=== PATIENT | female | born 1965 | race African-American/Black ===

== ENCOUNTER 2018-06-12 15:49 | Emergency (ER) | payer OTHER, SELFPAY ==
--- NOTE | 2018-06-12 16:28 | EDPHYS ---
Physician Documentation [facility] Name: Isis Ledezma Age: 53 yrs Sex: Female : 1965 Arrival Date: 06/12/2018 Time: 15:53 Bed 20 Private MD: ED Physician Velvet Lundberg HPI: 06/12 16:13 This 53 yrs old Black Female presents to ER via Ambulatory with complaints of L Arm kb Pain. 16:13 The patient or guardian complains of decreased range of motion, pain, that is acute. kb The complaints affect the neck and left arm. Context: resulted from unknown cause. Onset: The symptoms/episode began/occurred 1 week(s) ago. Treatment prior to arrival includes: no previous treatment. Modifying factors: The symptoms are alleviated by nothing. the symptoms are aggravated by movement, bending arm. Associated signs and symptoms: Pertinent positives: decreased range of motion, pain, Pertinent negatives: deformity, erythema, fever, nausea, numbness, swelling, tingling, vomiting, warmth, weakness. Severity of symptoms: At their worst the symptoms were moderate, in the emergency department the symptoms are unchanged. The patient has not experienced similar symptoms in the past. The patient has not recently seen a physician. 16:30 Pt denies injury or trauma. Woke up with the pain last . 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 - Social history:: Smoking status: Patient uses tobacco products, smokes one-half pack cigarettes per day. - Ebola Screening: : Patient denies travel to an Ebola-affected area in the 21 days before illness onset. ROS: 16:25 Constitutional: Negative for fever, chills, and weight loss, Cardiovascular: Negative kb for chest pain, palpitations, and edema, Respiratory: Negative for shortness of breath, cough, wheezing, and pleuritic chest pain, Abdomen/GI: Negative for abdominal pain, nausea, vomiting, diarrhea, and constipation, Back: Negative for injury and pain, Skin: Negative for injury, rash, and discoloration, Neuro: Negative for headache, weakness, numbness, tingling, and seizure. 16:25 MS/extremity: Positive for decreased range of motion, pain, of the left arm. Exam: 16:25 Constitutional: This is a well developed, well nourished patient who is awake, alert, kb and in no acute distress. Head/Face: Normocephalic, atraumatic. Chest/axilla: Normal chest wall appearance and motion. Nontender with no deformity. No lesions are appreciated. Cardiovascular: Regular rate and rhythm with a normal S1 and S2. No gallops, murmurs, or rubs. Normal PMI, no JVD. No pulse deficits. Respiratory: Lungs have equal breath sounds bilaterally, clear to auscultation and percussion. No rales, rhonchi or wheezes noted. No increased work of breathing, no retractions or nasal flaring. Abdomen/GI: Soft, non-tender, with normal bowel sounds. No distension or tympany. No guarding or rebound. No evidence of tenderness throughout. Skin: Warm, dry with normal turgor. Normal color with no rashes, no lesions, and no evidence of cellulitis. Neuro: Awake and alert, GCS 15, oriented to person, place, time, and situation. Cranial nerves II-XII grossly intact. Motor strength 5/5 in all extremities. Sensory grossly intact. Cerebellar exam normal. Normal gait. 16:25 Back: pain, that is moderate, of the left trapezius, ROM is normal, normal spinal alignment noted. 16:25 Musculoskeletal/extremity: Extremities: grossly normal except: noted in the left arm: decreased ROM, pain, ROM: limited active range of motion due to pain, in the left arm, Circulation is intact in all extremities. Sensation intact. Vital Signs: 15:57 BP 149 / 87; Pulse 88; Resp 18; Temp 98.4; Pulse Ox 98% on R/A; Weight 86.18 kg (R); aj1 Height 5 ft. 4 in. (162.56 cm) (R); Pain 10/10; 15:57 Body Mass Index 32.61 (86.18 kg, 162.56 cm) aj1 MDM: 16:06 Patient medically screened. kb 16:26 Data reviewed: vital signs, nurses notes. Data interpreted: Pulse oximetry: on room air kb is 98 %. Interpretation: normal. Counseling: I had a detailed discussion with the patient and/or guardian regarding: the historical points, exam findings, and any diagnostic results supporting the discharge/admit diagnosis, the need for outpatient follow up, a neurologist, a orthopedic surgeon, to return to the emergency department if symptoms worsen or persist or if there are any questions or concerns that arise at home. 06/12 16:27 Order name: Oleg; Complete Time: 16:28 kb Administered Medications: 16:33 Drug: TORadol 60 mg Route: IM; Site: right gluteus; em 16:43 Follow up: Response: No adverse reaction em Disposition: 18:28 Co-signature as Attending Physician, Velvet Lundberg MD. ma2 Disposition: 06/12/18 16:27 Discharged to Home. Impression: Pain in left upper arm, Radiculopathy, cervical region. - Condition is Stable. - Discharge Instructions: Musculoskeletal Pain, Cervical Radiculopathy, [id number]. - Prescriptions for Cyclobenzaprine 10 mg Oral Tablet - take 1 tablet by ORAL route every 8 hours As needed; 21 tablet. Tramadol 50 mg Oral Tablet - take 1 tablet by ORAL route every 8 hours as needed; 12 tablet. - Medication Reconciliation Form, Thank You Letter, Antibiotic Education, Prescription Opioid Use form. - Follow up: Emergency Department; When: As needed; Reason: Worsening of condition. Follow up: Private Physician; When: 2 - 3 days; Reason: Recheck today's complaints, Continuance of care, Re-evaluation by your physician. Signatures: Eva Palomo, ANTHONY BUCHANAN-Isis Butts RN RN aj1 Gustavo Jean, SECRETARY SPECIALIST SECRETARY SPECIALIST em Velvet Lundberg MD MD ma2 Corrections: (The following items were deleted from the chart) 16:26 16:25 Musculoskeletal/extremity: Extremities: grossly normal except: noted in the left kb arm: decreased ROM, pain, ROM: limited active range of motion due to pain, in the left arm, Circulation is intact in all extremities. Sensation intact. Tendon exam: specific tendon testing normal through active and passive range of motion kb 16:43 16:27 06/12/2018 16:27 Discharged to Home. Impression: Pain in left upper arm; em Radiculopathy, cervical region. Condition is Stable. Forms are Medication Reconciliation Form, Thank You Letter, Antibiotic Education, Prescription Opioid Use. Follow up: Emergency Department; When: As needed; Reason: Worsening of condition. Follow up: Private Physician; When: 2 - 3 days; Reason: Recheck today's complaints, Continuance of care, Re-evaluation by your physician. kb
--- NOTE | 2018-06-12 16:28 | ER ---
Nurse's Notes [facility] Name: Isis Ledezma Age: 53 yrs Sex: Female : 1965 Arrival Date: 06/12/2018 Time: 15:53 Bed 20 Private MD: Diagnosis: Pain in left upper arm;Radiculopathy, cervical region Presentation: 06/12 15:56 Presenting complaint: Patient states: Left arm pain for the past week, she has been aj1 unable to lift her arm due to the pain. Now the pain is radiating up to her neck and its starting to give her a headache as well. Denies injury to the left arm. Transition of care: patient was not received from another setting of care. Onset of symptoms was June 12, 2018. Risk Assessment: Do you want to hurt yourself or someone else? Patient reports no desire to harm self or others. Initial Sepsis Screen: Does the patient meet any 2 criteria? No. Patient's initial sepsis screen is negative. Does the patient have a suspected source of infection? No. Patient's initial sepsis screen is negative. Care prior to arrival: None. 15:56 Method Of Arrival: Ambulatory [facility] 15:56 Acuity: TAMICA 4 aj1 Triage Assessment: 15:57 General: Appears in no apparent distress. uncomfortable, Behavior is calm, cooperative, aj1 appropriate for age. Pain: Complains of pain in left arm and neck Pain currently is 10 out of 10 on a pain scale. Neuro: Level of Consciousness is awake, alert, obeys commands. Cardiovascular: Patient's skin is warm and dry. Respiratory: Airway is patent Respiratory effort is even, unlabored, Respiratory pattern is regular, symmetrical. 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 - Social history:: Smoking status: Patient uses tobacco products, smokes one-half pack cigarettes per day. - Ebola Screening: : Patient denies travel to an Ebola-affected area in the 21 days before illness onset. Screenin:09 Abuse screen: Denies threats or abuse. Nutritional screening: No deficits noted. em Tuberculosis screening: No symptoms or risk factors identified. Fall Risk None identified. Assessment: 16:24 General: Appears uncomfortable, obese, well groomed, well developed, well nourished, em Behavior is calm, cooperative. Pain: Complains of pain in neck and left arm. Neuro: Level of Consciousness is awake, alert, obeys commands, Oriented to person, place, time, situation, Gait is steady, Speech is normal, Facial symmetry appears normal. Cardiovascular: Capillary refill < 3 seconds Patient's skin is warm and dry. Respiratory: Airway is patent Respiratory effort is even, unlabored, Respiratory pattern is regular, symmetrical. GI: Abdomen is obese, Patient currently denies nausea, vomiting. : No signs and/or symptoms were reported regarding the genitourinary system. EENT: No signs and/or symptoms were reported regarding the EENT system. Derm: Skin is intact, Skin is pink, warm \T\ dry. Musculoskeletal: Range of motion: limited in left elbow. Injury Description: denies trauma. 16:24 Reassessment: I agree with assessment completed by Gustavo Jean LVN . Pain: Pain aa5 currently is 10 out of 10 on a pain scale. Pain began 1 week ago. Vital Signs: 15:57 BP 149 / 87; Pulse 88; Resp 18; Temp 98.4; Pulse Ox 98% on R/A; Weight 86.18 kg (R); aj1 Height 5 ft. 4 in. (162.56 cm) (R); Pain 10/10; 15:57 Body Mass Index 32.61 (86.18 kg, 162.56 cm) aj1 ED Course: 15:53 Patient arrived in ED. ds1 15:57 Triage completed. aj1 15:57 Arm band placed on Patient placed in an exam room. aj1 16:01 Gustavo Jean LVN is Primary Nurse. em 16:06 Eva Palomo FNP-C is PHCP. kb 16:06 Velvet Lundberg MD is Attending Physician. kb 16:09 Patient has correct armband on for positive identification. Placed in gown. Bed in low em position. Call light in reach. Adult w/ patient. 16:09 No provider procedures requiring assistance completed. em 16:43 Patient did not have IV access during this emergency room visit. em Administered Medications: 16:33 Drug: TORadol 60 mg Route: IM; Site: right gluteus; em 16:43 Follow up: Response: No adverse reaction em Outcome: 16:27 Discharge ordered by . kb 16:43 Discharged to home ambulatory, with family. em 16:43 Condition: good 16:43 Discharge instructions given to patient, family, Instructed on discharge instructions, follow up and referral plans. medication usage, Demonstrated understanding of instructions, follow-up care, medications, Prescriptions given X 2. 16:43 Patient left the ED. em Signatures: Eva Palomo, CHARTER AND TOUR BUS DRIVER-C CHARTER AND TOUR BUS DRIVER-Isis Butts RN RN aj1 Gustavo Jean, LAYOUT ARTIST LAYOUT ARTIST Aarti Blanc ds1 Kassie Benjamin, RN RN aa5
[2018-06-12] MEDS ORDERED: KETOROLAC 30 MG/ML INJ ONE (16:37)
[2018-06-12 16:55] VITALS: BP 149/87; TEMP 98.4; O2SAT 98
== END 2018-06-12 16:43 | disposition home or self-care (01) ==
LOC: ER 15:49
DX: M54.12 Radiculopathy, cervical region (principal); F17.210 Nicotine dependence, cigarettes, uncomplicated
CPT/HCPCS: 96372; 99283

== ENCOUNTER 2019-09-23 13:16 | Emergency (ER) | payer SELFPAY ==
--- NOTE | 2019-09-23 14:43 | RAD REPORT ---
EXAM DESCRIPTION: RAD - Chest Single View - 09/23/2019 2:30 pm CLINICAL HISTORY: CHEST PAIN Chest pain. COMPARISON: Chest Single View dated 07/30/2016 FINDINGS: Portable technique limits examination quality. The lungs are grossly clear. The heart is normal in size. No displaced fractures. IMPRESSION: No acute intrathoracic process suspected.
[2019-09-23] MEDS ORDERED: MORPHINE 4 MG/ML SYR ONE ×2 (15:07→18:09)
[2019-09-23] MEDS ORDERED: ONDANSETRON 4 MG/2 ML VIAL ONE ×2 (15:07→18:09)
[2019-09-23 15:12] LABS: Absolute Lymphocytes (CBC) 1.8 K/uL (0.7-4.9); Basophils % 1.3 % (0-1.3); Hematocrit 26.7 % (36.0-45.0); Lymphocytes % 28.4 % (15.3-44.8); MPV 9.1 fL (7.6-11.3); Protime INR 1.06; RBC Red Blood Cell Count 4.85 M/uL (3.86-4.86)
[2019-09-23 15:24] LABS: Anisocytosis 1+; Blood Morphology Comment NOTED (NOT SEEN); Hypochromasia 3+; Platelet Estimate ADEQ; Platelets, Giant PRESENT; Urine White Blood Cell Casts OK
[2019-09-23 15:39] LABS: ALT/SGPT 17 U/L (12-78); AST/SGOT 15 U/L (15-37); Albumin 3.5 g/dL (3.4-5.0); Alkaline Phosphatase 59 U/L (45-117); BUN Blood Urea Nitrogen 6 mg/dL (7-18); Bicarbonate 29 mmol/L (21-32); Bilirubin Direct < 0.1 mg/dL (0-0.2); Bilirubin Total 0.4 mg/dL (0.2-1.0); Glucose Level 92 mg/dL (74-106); Magnesium 1.7 mg/dL (1.8-2.4); NT PRO-BNP 27 pg/mL (<125); Potassium 3.2 mmol/L (3.5-5.1); Protein, Total 7.9 g/dL (6.4-8.2); Sodium Level 140 mmol/L (136-145); Troponin (Emerg Dept Use Only) < 0.02 ng/mL (0.0-0.045)
--- NOTE | 2019-09-23 17:52 | RAD REPORT ---
EXAM DESCRIPTION: CT - Angio Aorta For Dissection - 09/23/2019 5:37 pm CLINICAL HISTORY: . Chest abdominal pain COMPARISON: 2017 CT abdomen TECHNIQUE: Computed tomography angiography of the chest, abdomen pelvis were obtained. 100 cc Isovue 370 was administered intravenously. Coronal and sagittal reconstruction were performed. MIP 3D reconstruction was performed All CT scans are performed using dose optimization technique as appropriate and may include automated exposure control or mA/KV adjustment according to patient size. FINDINGS: The opacification of the ascending thoracic aorta is somewhat suboptimal. An aortic dissection is not seen. An aortic aneurysm is not displayed. The celiac, SMA and TIANA are patent . A lung consolidation is not present. A pericardial effusion is not seen. A pleural effusion is not n oted. The liver,spleen, pancreas adrenals kidneys demonstrate no significant abnormality. The uterus is enlarged and lobulated probably secondary to fibroids. 3 centimeter left ovarian cyst without significant free-fluid. No evidence of diverticulitis. Diastases of rectus abdominis muscle. Small thyroid nodules probably benign IMPRESSION: Opacification the ascending thoracic aorta is somewhat suboptimal. An aortic dissection is not seen 3 centimeter left ovarian cyst without significant free fluid
[2019-09-23] MEDS ORDERED: MAGNE/ALUM HYDROXD 30 ML UCUP ONE (18:51)
[2019-09-23] MEDS ORDERED: LIDOCAINE VISCOUS 2% SOLN 15 ML UDC ONE (18:51)
--- NOTE | 2019-09-23 19:04 | EDPHYS ---
Physician Documentation [facility] Name: Isis Ledezma Age: 54 yrs Sex: Female : 1965 Arrival Date: 09/23/2019 Time: 13:19 Bed 30 Private MD: ED Physician Felix Rollins HPI: 09/22 18:46 This 54 yrs old Black Female presents to ER via Wheelchair with complaints of Chest kdr Pain. 18:46 The patient or guardian reports chest pain that is located primarily in the substernal kdr area. Onset: 4 day(s) ago. The pain radiates to Associated signs and symptoms: Pertinent positives: nausea, Pertinent negatives: abdominal pain, cough, dizziness, headache, lower extremity pain, lower extremity swelling, lightheadedness, near syncope, palpitations, recent travel, shortness of breath, syncope, vomiting. The chest pain is described as aching, burning, a pressure. Duration: The patient or guardian reports multiple episodes, that are intermittent, that wax and wane, with no pattern. Modifying factors: The symptoms are alleviated by nothing. the symptoms are aggravated by nothing. Severity of pain: At its worst the pain was moderate severe in the emergency department the pain is unchanged. The patient has not experienced similar symptoms in the past. The patient has not recently seen a physician. 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 - Social history:: Smoking status: Patient reports the use of cigarette tobacco products, smokes one-half pack cigarettes per day. ROS: 18:46 Constitutional: Negative for fever, chills, and weight loss, Eyes: Negative for injury, kdr pain, redness, and discharge, ENT: Negative for injury, pain, and discharge, Neck: Negative for injury, pain, and swelling, Respiratory: Negative for shortness of breath, cough, wheezing, and pleuritic chest pain, Abdomen/GI: Negative for abdominal pain, nausea, vomiting, diarrhea, and constipation, Back: Negative for injury and pain, : Negative for injury, bleeding, discharge, and swelling, MS/Extremity: Negative for injury and deformity, Skin: Negative for injury, rash, and discoloration, Neuro: Negative for headache, weakness, numbness, tingling, and seizure activity. Psych: Negative for depression, anxiety, suicide ideation, homicidal ideation, and hallucinations, Allergy/Immunology: Negative for hives, rash, and allergies, Endocrine: Negative for neck swelling, polydipsia, polyuria, polyphagia, and marked weight changes, Hematologic/Lymphatic: Negative for swollen nodes, abnormal bleeding, and unusual bruising. 18:46 Cardiovascular: Positive for chest pain, of the xyphoid area. Exam: 18:53 Constitutional: This is a well developed, well nourished patient who is awake, alert, kdr and in moderate distress. Head/Face: Normocephalic, atraumatic. Eyes: Pupils equal round and reactive to light, extra-ocular motions intact. Lids and lashes normal. Conjunctiva and sclera are non-icteric and not injected. Cornea within normal limits. Periorbital areas with no swelling, redness, or edema. Neck: Trachea midline, no thyromegaly or masses palpated, and no cervical lymphadenopathy. Supple, full range of motion without nuchal rigidity, or vertebral point tenderness. No Meningismus. Chest/axilla: Normal chest wall appearance and motion. Nontender with no deformity. No lesions are appreciated. Cardiovascular: Regular rate and rhythm with a normal S1 and S2. No gallops, murmurs, or rubs. Normal PMI, no JVD. No pulse deficits. Respiratory: Lungs have equal breath sounds bilaterally, clear to auscultation and percussion. No rales, rhonchi or wheezes noted. No increased work of breathing, no retractions or nasal flaring. Abdomen/GI: Soft, non-tender, with normal bowel sounds. No distension or tympany. No guarding or rebound. No evidence of tenderness throughout. Back: No spinal tenderness. No costovertebral tenderness. Full range of motion. Skin: Warm, dry with normal turgor. Normal color with no rashes, no lesions, and no evidence of cellulitis. MS/ Extremity: Pulses equal, no cyanosis. Neurovascular intact. Full, normal range of motion. Neuro: Awake and alert, GCS 15, oriented to person, place, time, and situation. Cranial nerves II-XII grossly intact. Motor strength 5/5 in all extremities. Sensory grossly intact. Cerebellar exam normal. Normal gait. Psych: Awake, alert, with orientation to person, place and time. Behavior, mood, and affect are within normal limits. Vital Signs: 13:23 BP 146 / 83; Pulse 76; Resp 18 S; Temp 97.8(TE); Pulse Ox 100% ; Weight 85.28 kg (R); ca1 Height 5 ft. 4 in. (162.56 cm) (R); 15:30 BP 167 / 87; Pulse 80; Resp 18; Pulse Ox 100% on R/A; wh 16:30 BP 164 / 87; Pulse 72; Resp 14; Pulse Ox 99% on R/A; Pain 3/10; ls4 17:30 BP 154 / 78; Pulse 75; Resp 18; Pulse Ox 100% ; wh 18:23 BP 154 / 78; Pulse 70; Resp 14; Pulse Ox 99% on R/A; Pain 5/10; ls4 13:23 Body Mass Index 32.27 (85.28 kg, 162.56 cm) ca1 MDM: 18:53 Data reviewed: vital signs, nurses notes, lab test result(s), radiologic studies. kdr Counseling: I had a detailed discussion with the patient and/or guardian regarding: the historical points, exam findings, and any diagnostic results supporting the discharge/admit diagnosis, lab results, radiology results, the need for outpatient follow up. 19:03 Patient medically screened. kdr 09/22 14:10 Order name: Basic Metabolic Panel; Complete Time: 15:46 ca1 09/22 14:10 Order name: CBC with Diff; Complete Time: 15:46 ca1 09/22 14:10 Order name: LFT's; Complete Time: 15:46 ca1 09/22 14:10 Order name: Magnesium; Complete Time: 15:46 ca1 09/22 14:10 Order name: NT PRO-BNP; Complete Time: 15:46 ca1 09/22 14:10 Order name: PT-INR; Complete Time: 15:46 ca1 09/22 14:10 Order name: Troponin (emerg Dept Use Only); Complete Time: 15:46 ca1 09/22 14:10 Order name: XRAY Chest (1 view) ca1 09/22 14:49 Order name: RAD; Complete Time: 14:57 EDMS 09/22 15:15 Order name: CT Aorta for Dissection; Complete Time: 18:02 kdr 09/22 15:19 Order name: CBC Smear Scan; Complete Time: 15:46 EDMS 09/22 17:20 Order name: Troponin (emerg Dept Use Only); Complete Time: 18:02 ss 09/22 14:10 Order name: EKG; Complete Time: 14:11 ca1 09/22 14:10 Order name: Cardiac monitoring; Complete Time: 14:30 ca1 09/22 14:10 Order name: EKG - Nurse/Tech; Complete Time: 14:10 ca1 09/22 14:10 Order name: IV Saline Lock; Complete Time: 15:01 ca1 09/22 14:10 Order name: Labs collected and sent; Complete Time: 15:09 ca1 09/22 14:10 Order name: O2 Per Protocol; Complete Time: 14:30 ca1 09/22 14:10 Order name: O2 Sat Monitoring; Complete Time: 14:30 ca1 Administered Medications: 15:06 Drug: morphine 4 mg {Note: RASS 0.} Route: IVP; Site: left hand; wh 16:49 Follow up: Response: No adverse reaction; Pain is decreased; RASS: Alert and Calm (0) wh 15:08 Drug: Zofran (Ondansetron) 4 mg Route: IVP; Site: left hand; wh 16:49 Follow up: Response: No adverse reaction; Nausea is decreased wh 17:53 Drug: morphine 4 mg Route: IVP; Site: left hand; wh 18:15 Follow up: Response: No adverse reaction; Marked relief of symptoms ls4 18:15 Follow up: Response: No adverse reaction; Marked relief of symptoms ls4 17:55 Drug: Zofran (Ondansetron) 4 mg Route: IVP; Site: left hand; wh 18:45 CANCELLED (Duplicate Order): Maalox Suspension (200 mg-200 mg-20 mg/5 mL) 30 ml PO once ls4 18:45 CANCELLED (Duplicate Order): Lidocaine Gel 2 % 1 ea 15 ml Mucous Membrane once ls4 18:49 Drug: GI Cocktail without - (Maalox Suspension 30 ml, Lidocaine Liquid 2 % 15 ls4 ml) Route: PO; Disposition: 09/23/19 19:03 Discharged to Home. Impression: Chest pain, unspecified, Esophagitis. - Condition is Stable. - Discharge Instructions: Nonspecific Chest Pain, [id number]. - Prescriptions for Tramadol 50 mg Oral Tablet - take 1 tablet by ORAL route every 8 hours as needed; 12 tablet. Pepcid 20 mg Oral Tablet - take 1 tablet by ORAL route once daily for 10 days; 10 tablet. - Medication Reconciliation Form, Thank You Letter, Antibiotic Education, Prescription Opioid Use form. - Follow up: Private Physician; When: 2 - 3 days; Reason: If symptoms return, Further diagnostic work-up, Recheck today's complaints, Continuance of care, Re-evaluation by your physician. - Problem is an ongoing problem. - Symptoms have improved. Signatures: Dispatcher [employer] EDMS Felix Rollins MD MD kdr Habalo, Winsy wh Umadhay, Felix, RN RN fu Stewart, Lisa, RN RN ls4 Ramila Jaeger RN RN ca1 Corrections: (The following items were deleted from the chart) 18:45 18:44 Maalox Suspension (200 mg-200 mg-20 mg/5 mL) 30 ml PO once ordered. ls4 ls4 18:45 18:44 Lidocaine Gel 2 % 1 ea 15 ml Mucous Membrane once ordered. ls4 ls4 19:17 19:03 09/23/2019 19:03 Discharged to Home. Impression: Chest pain, unspecified; fu Esophagitis. Condition is Stable. Discharge Instructions: Nonspecific Chest Pain, [id number]. Prescriptions for Tramadol 50 mg Oral Tablet - take 1 tablet by ORAL route every 8 hours as needed; 12 tablet, Pepcid 20 mg Oral Tablet - take 1 tablet by ORAL route once daily for 10 days; 10 tablet. and Forms are Medication Reconciliation Form, Thank You Letter, Antibiotic Education, Prescription Opioid Use. Follow up: Private Physician; When: 2 - 3 days; Reason: If symptoms return, Further diagnostic work-up, Recheck today's complaints, Continuance of care, Re-evaluation by your physician. Problem is an ongoing problem. Symptoms have improved. kdr
--- NOTE | 2019-09-23 19:04 | ER ---
Nurse's Notes [facility] Name: Isis Ledezma Age: 54 yrs Sex: Female : 1965 Arrival Date: 09/23/2019 Time: 13:19 Bed 30 Private MD: Diagnosis: Chest pain, unspecified;Esophagitis Presentation: 09/22 13:23 Chief complaint: Patient states: Chest pain started 4 days ago. Denies N/V. Reports ca1 pain upon swallowing and back pain. Coronavirus screen: The patient has NOT traveled to a country currently being monitored by the [facility] within the last 14 days. The patient has NOT had contact with any known and/or suspected case of coronavirus. Ebola Screen: Patient negative for fever greater than or equal to 101.5 degrees Fahrenheit, and additional compatible Ebola Virus Disease symptoms Patient denies exposure to infectious person. Patient denies travel to an Ebola-affected area in the 21 days before illness onset. No symptoms or risks identified at this time. Initial Sepsis Screen: Does the patient meet any 2 criteria? No. Patient's initial sepsis screen is negative. Does the patient have a suspected source of infection? No. Patient's initial sepsis screen is negative. Risk Assessment: Do you want to hurt yourself or someone else? Patient reports no desire to harm self or others. Onset of symptoms was September 23, 2019. 13:23 Method Of Arrival: Wheelchair ca1 13:23 Acuity: TAMICA 3 ca1 Triage Assessment: 13:27 General: Appears in no apparent distress. comfortable, Behavior is calm, cooperative, ca1 appropriate for age. Pain: Complains of pain in mid-sternal area. Cardiovascular: Rhythm is sinus rhythm. 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 - Social history:: Smoking status: Patient reports the use of cigarette tobacco products, smokes one-half pack cigarettes per day. Screenin:30 Abuse screen: Denies threats or abuse. Denies injuries from another. Nutritional wh screening: No deficits noted. Tuberculosis screening: No symptoms or risk factors identified. Fall Risk None identified. Assessment: 14:16 General: Appears in no apparent distress. Behavior is calm, cooperative, appropriate wh for age. Pain: Complains of pain in mid-sternal area Pain does not radiate. Pain currently is 8 out of 10 on a pain scale. Quality of pain is described as sharp, Pain began 2-3 days ago. Is intermittent. Neuro: Level of Consciousness is awake, alert, obeys commands, Oriented to person, place, time, situation, Appropriate for age. Cardiovascular: Heart tones S1 S2 Rhythm is regular. Respiratory: Airway is patent Respiratory effort is even, unlabored, Respiratory pattern is regular, symmetrical, Breath sounds are clear bilaterally. GI: Abdomen is flat, non-distended. : No signs and/or symptoms were reported regarding the genitourinary system. EENT: No signs and/or symptoms were reported regarding the EENT system. Derm: Skin is intact, is healthy with good turgor, Skin is pink, warm \T\ dry. normal. Musculoskeletal: Circulation, motion, and sensation intact. 15:15 Reassessment: Phlebo called in for blood draw, unable to draw from IV access. 16:00 Reassessment: Patient appears in no apparent distress at this time. No changes from previously documented assessment. Patient and/or family updated on plan of care and expected duration. Pain level reassessed. Patient is alert, oriented x 3, equal unlabored respirations, skin warm/dry/pink. PT hard stick will need new Iv access for CT scan. 17:22 Reassessment: Patient appears in no apparent distress at this time. No changes from previously documented assessment. Patient and/or family updated on plan of care and expected duration. Pain level reassessed. Patient is alert, oriented x 3, equal unlabored respirations, skin warm/dry/pink. IVF was just inserted using MAGAN by Stephanie Piedra RN, MD provider notified. CT scan informed. 17:23 Pain: Pain began. 18:27 Reassessment: Patient appears in no apparent distress at this time. No changes from ls4 previously documented assessment. Patient and/or family updated on plan of care and expected duration. Pain level reassessed. Patient is alert, oriented x 3, equal unlabored respirations, skin warm/dry/pink. 18:52 Reassessment: Patient appears in no apparent distress at this time. No changes from ls4 previously documented assessment. Patient and/or family updated on plan of care and expected duration. Pain level reassessed. Patient is alert, oriented x 3, equal unlabored respirations, skin warm/dry/pink. 19:10 Reassessment: Patient states feeling better. Patient states symptoms have improved. ls4 Vital Signs: 13:23 BP 146 / 83; Pulse 76; Resp 18 S; Temp 97.8(TE); Pulse Ox 100% ; Weight 85.28 kg (R); ca1 Height 5 ft. 4 in. (162.56 cm) (R); 15:30 BP 167 / 87; Pulse 80; Resp 18; Pulse Ox 100% on R/A; wh 16:30 BP 164 / 87; Pulse 72; Resp 14; Pulse Ox 99% on R/A; Pain 3/10; ls4 17:30 BP 154 / 78; Pulse 75; Resp 18; Pulse Ox 100% ; wh 18:23 BP 154 / 78; Pulse 70; Resp 14; Pulse Ox 99% on R/A; Pain 5/10; ls4 13:23 Body Mass Index 32.27 (85.28 kg, 162.56 cm) ca1 ED Course: 13:19 Patient arrived in ED. mr 13:26 Triage completed. ca1 13:27 Arm band placed on right wrist. EKG completed in triage. Results shown to MD. ca1 13:59 Shaina Childs is Primary Nurse. wh 14:00 Felix Rollins MD is Attending Physician. kdr 14:30 Patient has correct armband on for positive identification. Placed in gown. Bed in low wh position. Call light in reach. Side rails up X 1. telemetry monitor on. Pulse ox on. NIBP on. 14:30 Missed attempt(s): 20 gauge in left antecubital area. Bleeding controlled, band aid wh applied, catheter tip intact. 14:30 Patient maintains SpO2 saturation greater than 95% on room air. wh 14:40 Missed attempt(s): 22 gauge in right forearm. Bleeding controlled, band aid applied, jp3 catheter tip intact. 14:50 Inserted saline lock: 24 gauge in left wrist, using aseptic technique. jp3 16:02 Radiology exam delayed due to IV insertion attempt and/or patient not having nj appropriate IV at this time. 17:20 Inserted saline lock: 22 gauge in right antecubital area, using aseptic technique. ss ,using aseptic technique. insertion VIA ultrasound guided Blood collected. 17:37 CT Aorta for Dissection In Process Unspecified. EDMS 18:27 No provider procedures requiring assistance completed. ls4 19:09 IV discontinued, intact, bleeding controlled, No redness/swelling at site. Pressure ls4 dressing applied, BOTH. Administered Medications: 15:06 Drug: morphine 4 mg {Note: RASS 0.} Route: IVP; Site: left hand; 16:49 Follow up: Response: No adverse reaction; Pain is decreased; RASS: Alert and Calm (0) 15:08 Drug: Zofran (Ondansetron) 4 mg Route: IVP; Site: left hand; 16:49 Follow up: Response: No adverse reaction; Nausea is decreased 17:53 Drug: morphine 4 mg Route: IVP; Site: left hand; 18:15 Follow up: Response: No adverse reaction; Marked relief of symptoms ls4 18:15 Follow up: Response: No adverse reaction; Marked relief of symptoms ls4 17:55 Drug: Zofran (Ondansetron) 4 mg Route: IVP; Site: left hand; 18:45 CANCELLED (Duplicate Order): Maalox Suspension (200 mg-200 mg-20 mg/5 mL) 30 ml PO once ls4 18:45 CANCELLED (Duplicate Order): Lidocaine Gel 2 % 1 ea 15 ml Mucous Membrane once ls4 18:49 Drug: GI Cocktail without - (Maalox Suspension 30 ml, Lidocaine Liquid 2 % 15 ls4 ml) Route: PO; Outcome: 19:03 Discharge ordered by . kdr 19:16 Discharged to home ambulatory. fu 19:16 Condition: stable 19:16 Discharge instructions given to patient, Instructed on discharge instructions, follow up and referral plans. Demonstrated understanding of instructions. 19:17 Prescriptions given X 2. fu 19:17 Patient left the ED. fu Signatures: Dispatcher [employer] EDMS Felix Rollins MD MD kdr Rivera, Mary mr Stephanie Weeks RN RN Dilan Mcgee Winsy Chris Velazquez RN RN Chinmay Martinez [facility] Rico, Amy, RN RN ls4 Acob, Ramila, RN RN ca1
[2019-09-23 19:27] VITALS: TEMP 97.8
[2019-09-23 19:32] VITALS: BP 154/78
[2019-09-23 19:33] VITALS: O2SAT 99
--- NOTE | 2019-09-24 11:40 | EKG ---
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
== END 2019-09-23 19:17 | disposition home or self-care (01) ==
LOC: ER 13:16
DX: K20.9 Esophagitis, unspecified (principal); F17.210 Nicotine dependence, cigarettes, uncomplicated
CPT/HCPCS: 36415; 71045; 71275; 74175; 80048; 80076; 83735; 83880; 84484; 85025; 85610; 93005; 96374; 96375; 99285; J2405; Q9967

== ENCOUNTER 2020-06-25 17:53 | Emergency (ER) | payer SELFPAY ==
[2020-06-25] MEDS ORDERED: ONDANSETRON 4 MG/2 ML VIAL ONE (18:53)
[2020-06-25] MEDS ORDERED: MEPERIDINE HCL 25 MG/ML SYR ONE (18:53)
[2020-06-25 21:11] LABS: ALT/SGPT 15 U/L (12-78); AST/SGOT 10 U/L (15-37); Albumin 3.2 g/dL (3.4-5.0); Alkaline Phosphatase 57 U/L (45-117); BUN Blood Urea Nitrogen 10 mg/dL (7-18); Bicarbonate 26 mmol/L (21-32); Bilirubin Direct < 0.1 mg/dL (0-0.2); Bilirubin Total 0.2 mg/dL (0.2-1.0); Glucose Level 91 mg/dL (74-106); Lipase 156 U/L (73-393); Protein, Total 7.2 g/dL (6.4-8.2); Sodium Level 142 mmol/L (136-145)
--- NOTE | 2020-06-25 21:39 | RAD REPORT ---
EXAM DESCRIPTION: CT - Abdomen Pelvis W Contrast - 06/25/2020 9:12 pm CLINICAL HISTORY: Abdominal pain COMPARISON: September 2019 TECHNIQUE: Computed axial tomography of the abdomen pelvis was obtained. 100 cc Isovue-300 was admin istered intravenously. Oral contrast was not requested which limits evaluation of bowel. All CT scans are performed using dose optimization technique as appropriate and may include automated exposure control or mA/KV adjustment according to patient size. FINDINGS: The liver, spleen, pancreas, adrenal and left kidney appear unremarkable. 1 millimeter alcon cification right kidney without hydronephrosis There is no evidence of diverticulitis. Diastases of the rectus abdominis muscles 7 centimeters. Smal l umbilical hernia The uterus is enlarged and lobulated. It has increased in size since 2017 IMPRESSION: The uterus is enlarged and lobulated. It has increased in size from 2017. This is likely secondary to fibroids. Leiomyosarcoma can also result in this appearance. 1 millimeter nonobstructing right renal calculus
--- NOTE | 2020-06-25 21:40 | RAD REPORT ---
EXAM DESCRIPTION: US - Abdomen Exam Limited - 06/25/2020 7:08 pm CLINICAL HISTORY: Abdominal pain. COMPARISON: 2010 FINDINGS: The gallbladder wall is not thickened. A gallstone is not seen. The biliary tree is normal caliber. IMPRESSION: Unremarkable gallbladder ultrasound.
[2020-06-25 21:42] LABS: Absolute Lymphocytes (CBC) 1.8 K/uL (0.7-4.9); Basophils % 0.8 % (0-1.3); Hematocrit 23.1 % (36.0-45.0); Lymphocytes % 22.2 % (15.3-44.8); MPV 8.7 fL (7.6-11.3); RBC Red Blood Cell Count 4.34 M/uL (3.86-4.86)
--- NOTE | 2020-06-25 21:52 | ER ---
Nurse's Notes [facility] Name: Isis Ledezma Age: 55 yrs Sex: Female : 1965 Arrival Date: 06/25/2020 Time: 17:54 Bed 13 Private MD: Diagnosis: Abdominal tenderness;Anemia in other chronic diseases classified elsewhere Presentation: 06/25 18:07 Chief complaint: Patient states: Epigastric pain intermittent for 1 month. Pain ll1 radiates to the back. No fever. Some N/V. Coronavirus screen: Client denies travel out of the [place] in the last 14 days. difficulty breathing, nausea, vomiting. Client presents with at least one sign or symptom that may indicate coronavirus-19. Standard/surgical mask placed on the client. Ebola Screen: Patient denies travel to an Ebola-affected area in the 21 days before illness onset. Initial Sepsis Screen: Does the patient meet any 2 criteria? No. Patient's initial sepsis screen is negative. Does the patient have a suspected source of infection? Yes: Acute abdominal pain. Risk Assessment: Do you want to hurt yourself or someone else? Patient reports no desire to harm self or others. Onset of symptoms was May 26, 2020. 18:07 Method Of Arrival: Ambulatory ll1 18:07 Acuity: TAMICA 3 ll1 Historical: - Allergies: 18:05 No Known Allergies; ll1 - PMHx: 12 03:03 None; sg - PSHx: 06/25 18:05 Appendectomy; ; ll1 - Immunization history:: Flu vaccine is not up to date. - Social history:: Smoking status: Patient reports the use of cigarette tobacco products, smokes one-half pack cigarettes per day. - Family history:: not pertinent. - Hospitalizations: : No recent hospitalization is reported. Screenin:57 Abuse screen: Denies threats or abuse. Nutritional screening: No deficits noted. Tuberculosis screening: No symptoms or risk factors identified. Fall Risk None identified. Assessment: 18:55 General: Appears uncomfortable, Behavior is calm, cooperative, appropriate for age. Pain: Complains of pain in epigastric area. Neuro: Level of Consciousness is awake, alert, obeys commands, Oriented to person, place, time, situation, Appropriate for age. Cardiovascular: Heart tones S1 S2 present. Respiratory: Airway is patent Respiratory effort is even, unlabored, Respiratory pattern is regular, Breath sounds are clear. GI: Abdomen is non-distended, Bowel sounds present X 4 quads. Abdomen is tender to palpation in epigastric area Patient currently denies diarrhea, vomiting. GI: Abdomen is distended. : Derm: Skin is intact, is healthy with good turgor. 19:00 Reassessment: Patient appears in no apparent distress at this time. Patient and/or jb4 family updated on plan of care and expected duration. Pain level reassessed. Patient is alert, oriented x 3, equal unlabored respirations, skin warm/dry/pink. 19:23 Reassessment: Patient appears in no apparent distress at this time. pt daughter on sg phone, requesting to speak with the pt. informed we do not have phones in the exam rooms, take a message. pt daughter states that her father, the pt spouse is wondering how he supposed to get to work. will update pt. 20:00 Reassessment: Patient appears in no apparent distress at this time. Patient and/or jb4 family updated on plan of care and expected duration. Pain level reassessed. Patient is alert, oriented x 3, equal unlabored respirations, skin warm/dry/pink. 21:00 Reassessment: Patient appears in no apparent distress at this time. Patient and/or jb4 family updated on plan of care and expected duration. Pain level reassessed. Patient is alert, oriented x 3, equal unlabored respirations, skin warm/dry/pink. PT to CT. 21:16 Reassessment: Pt back from ct. jb4 22:00 Reassessment: Patient appears in no apparent distress at this time. Patient and/or jb4 family updated on plan of care and expected duration. Pain level reassessed. Patient is alert, oriented x 3, equal unlabored respirations, skin warm/dry/pink. 23:00 Reassessment: Patient appears in no apparent distress at this time. Patient and/or jb4 family updated on plan of care and expected duration. Pain level reassessed. Patient is alert, oriented x 3, equal unlabored respirations, skin warm/dry/pink. 06/26 00:00 Reassessment: Patient appears in no apparent distress at this time. Patient and/or jb4 family updated on plan of care and expected duration. Pain level reassessed. Patient is alert, oriented x 3, equal unlabored respirations, skin warm/dry/pink. 01:00 Reassessment: Patient and/or family updated on plan of care and expected duration. Pain jb4 level reassessed. Pt resting in bed with eyes closed respirations are even and unlabored. No s/s of pain or distress noted. 02:00 Reassessment: Patient appears in no apparent distress at this time. No changes from jb4 previously documented assessment. Patient and/or family updated on plan of care and expected duration. Pain level reassessed. 02:25 Reassessment: Blood products verified with GEE Rousseau and transfusion started. jb4 03:30 Reassessment: Patient appears in no apparent distress at this time. Patient and/or jb4 family updated on plan of care and expected duration. Pain level reassessed. Patient is alert, oriented x 3, equal unlabored respirations, skin warm/dry/pink. Patient denies pain at this time. 05:03 Reassessment: Patient appears in no apparent distress at this time. Patient and/or jb4 family updated on plan of care and expected duration. Pain level reassessed. Patient is alert, oriented x 3, equal unlabored respirations, skin warm/dry/pink. Patient denies pain at this time. Patient states feeling better. Vital Signs: 06/25 18:07 BP 170 / 78; Pulse 87; Resp 17; Temp 97.3; Pulse Ox 100% ; Weight 81.65 kg; Height 5 ll1 ft. 4 in. (162.56 cm); Pain 10/10; 20:52 BP 146 / 82; Pulse 75; Resp 16; Pulse Ox 100% on R/A; jb4 22:50 BP 137 / 67; Pulse 77; Resp 16; Pulse Ox 100% on R/A; jb4 1206 00:00 BP 115 / 64; Pulse 79; Resp 16; Pulse Ox 98% on R/A; jb4 01:00 BP 119 / 81; Pulse 78; Resp 16; Pulse Ox 100% on R/A; jb4 02:00 BP 117 / 64; Pulse 81; Resp 16; Pulse Ox 99% on R/A; jb4 02:40 BP 122 / 73; Pulse 84; Resp 16; Temp 98.9(O); Pulse Ox 99% on R/A; Pain 0/10; jb4 03:40 BP 125 / 62; Pulse 83; Resp 16; Temp 99.3(O); Pulse Ox 100% on R/A; jb4 04:45 BP 105 / 58; Pulse 81; Resp 16; Pulse Ox 98% on R/A; jb4 06/25 18:07 Body Mass Index 30.90 (81.65 kg, 162.56 cm) ll1 ED Course: 06/25 17:54 Patient arrived in ED. as 18:05 Arm band placed on Patient placed in an exam room, on a stretcher. ll1 18:08 Triage completed. ll1 18:09 Juan J Nieves MD is Attending Physician. rn 18:19 Radiology exam delayed due to lab results not completed at this time. IV insertion mw3 attempt and/or patient not having appropriate IV at this time. 18:36 Vania Leyva, RN is Primary Nurse. 18:55 Missed attempt(s): 22 gauge in left antecubital area. Bleeding controlled, band aid ah applied, catheter tip intact. 19:08 US Abdomen Limited In Process Unspecified. EDMS 19:10 Patient has correct armband on for positive identification. Bed in low position. Call light in reach. Side rails up X 1. 20:06 Radiology exam delayed due to lab results not completed at this time. test mw3 not completed at this time. IV insertion attempt and/or patient not having appropriate IV at this time. 20:20 Missed attempt(s): 20 gauge in right upper arm. VIA US GUIDED, pt tolerated poorly, sg requests no to have MidLine at this time, notified for PIV access.. 20:50 IV inserstion to the left EJ performed by , 18 G. Initial lab(s) drawn, by nj, sg sent to lab. a green tube, labeled correctly given to Kaylah with CT for iStat Creatinine prior to CT scan. Inserted saline lock: 18 gauge in left EJ, using aseptic technique. Blood collected. IV is patent, is intact, with good blood return, Flushed left saline lock with 5 ml normal saline. 21:[address] via stretcher. with RN. sg 21:12 CT Abd/Pelvis - IV Contrast Only In Process Unspecified. EDMS 21:20 Patient moved back from CT. sg 12 05:02 IV discontinued, intact, bleeding controlled, No redness/swelling at site. Pressure jb4 dressing applied. Administered Medications: 06/25 20:57 Drug: Zofran (Ondansetron) 4 mg Route: IVP; Site: left jugular; jb4 21:30 Follow up: Response: No adverse reaction jb4 21:01 Drug: Demerol 25 mg {Note: Administered via Left EJ.} Route: IVP; Site: Other; jb4 21:30 Follow up: Response: No adverse reaction; Pain is decreased; RASS: Alert and Calm (0) jb Outcome: 21:51 Discharge ordered by . [facility] 06/26 04:42 Discharge ordered by . [facility] 05:02 Discharged to home ambulatory. [facility] 05:02 Condition: stable 05:02 Discharge instructions given to patient, Instructed on discharge instructions, follow up and referral plans. medication usage, Demonstrated understanding of instructions, follow-up care, medications, Prescriptions given X 2. 05:05 Patient left the ED. 4 Signatures: Dispatcher [employer] EDMS Soham Keating, RN Marisol Sarah Roman, MD MD rn Bryson, James, RN RN jb Caesar Mccoy MD MD [facility] Kaylah Wilson mw3 Vania Leyva, RN Kathy Sanchez RN RN ll1
--- NOTE | 2020-06-25 21:52 | EDPHYS ---
Physician Documentation [facility] Name: Isis Ledezma Age: 55 yrs Sex: Female : 1965 Arrival Date: 06/25/2020 Time: 17:54 Bed 13 Private MD: ED Physician Juan J Nieves HPI: 06/25 18:16 This 55 yrs old Black Female presents to ER via Ambulatory with complaints of rn Epigastric Pain, Back Pain. 18:16 The patient presents with abdominal pain in the epigastric area. Onset: The rn symptoms/episode began/occurred 1 month(s) ago. The symptoms radiate to back. Associated signs and symptoms: Pertinent positives: nausea and vomiting, constipation, Pertinent negatives: anorexia, blood in stools, diarrhea, dysuria, fever. The symptoms are described as achy, crampy, intermittent. Modifying factors: The symptoms are alleviated by nothing, the symptoms are aggravated by touching the area. Severity of pain: At its worst the pain was moderate in the emergency department the pain is unchanged. The patient has experienced similar episodes in the past. The patient has not recently seen a physician. Reports similar episodes in past, told was pancreatitis, no known cause of pancreatitis, no fever, no blood in stool. No trauma. . Historical: - Allergies: 18:05 No Known Allergies; ll1 - PMHx: 06/26 03:03 None; sg - PSHx: 06/25 18:05 Appendectomy; ; ll1 - Immunization history:: Flu vaccine is not up to date. - Social history:: Smoking status: Patient reports the use of cigarette tobacco products, smokes one-half pack cigarettes per day. - Family history:: not pertinent. - Hospitalizations: : No recent hospitalization is reported. ROS: 18:16 Constitutional: Negative for fever, chills, and weight loss, Eyes: Negative for injury, rn pain, redness, and discharge, Neck: Negative for injury, pain, and swelling, Cardiovascular: Negative for chest pain, palpitations, and edema, Respiratory: Negative for cough, wheezing, and pleuritic chest pain, Abdomen/GI: Negative for diarrhea Back: Negative for injury MS/Extremity: Negative for injury and deformity, Skin: Negative for injury, rash, and discoloration, Neuro: Negative for headache, weakness, numbness, tingling, and seizure. Exam: 18:16 Constitutional: This is a well developed, well nourished patient who is awake, alert, rn appears uncomfortable Head/Face: Normocephalic, atraumatic. Cardiovascular: Regular rate and rhythm. No pulse deficits. Respiratory: No increased work of breathing, no retractions or nasal flaring. Abdomen/GI: soft, + tender epigastrium, + tender RUQ, no rebound Skin: Warm, dry MS/ Extremity: Pulses equal, no cyanosis. Neuro: Awake and alert, GCS 15 Vital Signs: 18:07 BP 170 / 78; Pulse 87; Resp 17; Temp 97.3; Pulse Ox 100% ; Weight 81.65 kg; Height 5 ll1 ft. 4 in. (162.56 cm); Pain 10/10; 20:52 BP 146 / 82; Pulse 75; Resp 16; Pulse Ox 100% on R/A; jb4 22:50 BP 137 / 67; Pulse 77; Resp 16; Pulse Ox 100% on R/A; jb4 12 00:00 BP 115 / 64; Pulse 79; Resp 16; Pulse Ox 98% on R/A; jb4 01:00 BP 119 / 81; Pulse 78; Resp 16; Pulse Ox 100% on R/A; jb4 02:00 BP 117 / 64; Pulse 81; Resp 16; Pulse Ox 99% on R/A; jb4 02:40 BP 122 / 73; Pulse 84; Resp 16; Temp 98.9(O); Pulse Ox 99% on R/A; Pain 0/10; jb4 03:40 BP 125 / 62; Pulse 83; Resp 16; Temp 99.3(O); Pulse Ox 100% on R/A; jb4 04:45 BP 105 / 58; Pulse 81; Resp 16; Pulse Ox 98% on R/A; jb4 06/25 18:07 Body Mass Index 30.90 (81.65 kg, 162.56 cm) ll1 MDM: 06/25 18:09 Patient medically screened. rn 06/25 18:16 Order name: Basic Metabolic Panel; Complete Time: 21:47 rn 06/25 21:47 Interpretation: Normal except: CL 112; CRE 0.51. tw4 06/25 18:16 Order name: CBC with Diff; Complete Time: 22:10 rn 06/25 22:11 Interpretation: Normal except: HCT 23.1; HGB 6.9; MCV 53.3; MCH 15.9; MCHC 29.9; RDW tw4 22.9; PLT 75. 06/25 18:16 Order name: Hepatic Function; Complete Time: 21:47 06/25 21:47 Interpretation: Normal except: A/G 0.8; ALB 3.2; GLOB 4.0; AST 10. [facility] 06/25 18:16 Order name: Lipase; Complete Time: 21:47 06/25 21:47 Interpretation: Within normal limits: LIP 156. [facility] 06/25 21:44 Order name: CREATININE WHOLE BLOOD; Complete Time: 21:47 [facility] 06/25 22:09 Order name: CBC Smear Scan; Complete Time: 22:10 [facility] 06/25 22:11 Interpretation: Within normal limits. [facility] 06/25 18:16 Order name: CT Abd/Pelvis - IV Contrast Only; Complete Time: 21:47 06/25 18:16 Order name: US Abdomen Limited; Complete Time: 21:47 06/25 22:14 Order name: Type And Screen [facility] 06/25 22:23 Order name: Hemoglobin; Complete Time: 23:27 06/26 01:02 Order name: Packed RBC Leukored [facility] 06/26 01:35 Order name: ABO/RH no charge [facility] 06/25 18:16 Order name: IV Saline Lock; Complete Time: 20:49 06/25 18:16 Order name: Labs collected and sent; Complete Time: 20:49 06/25 22:14 Order name: Transfuse; Complete Time: 02:49 [facility] Administered Medications: 20:57 Drug: Zofran (Ondansetron) 4 mg Route: IVP; Site: left jugular; [facility] 21:30 Follow up: Response: No adverse reaction jb 21:01 Drug: Demerol 25 mg {Note: Administered via Left EJ.} Route: IVP; Site: Other; 4 21:30 Follow up: Response: No adverse reaction; Pain is decreased; RASS: Alert and Calm (0) [facility] Disposition: 06/26/20 04:42 Discharged to Home. Impression: Abdominal tenderness, Anemia in other chronic diseases classified elsewhere. - Condition is Stable. - Discharge Instructions: Abdominal Pain, Adult, Anemia, Nonspecific, Blood Transfusion, [id number]. - Prescriptions for Bentyl 20 mg Oral Tablet - take 1 tablet by ORAL route every 6 hours As needed; 20 tablet. Protonix 40 mg Oral Tablet - take 1 tablet by ORAL route once daily; 30 tablet. - Medication Reconciliation Form, Thank You Letter, Antibiotic Education, Prescription Opioid Use form. - Follow up: Private Physician; When: Upon discharge from the Emergency Department; Reason: Recheck today's complaints, Continuance of care, Re-evaluation by your physician. - Problem is new. - Symptoms have improved. Addendum: 07/28/2020 13:24 Co-signature as Attending Physician, Felix Rollins MD I agree with the assessment and k dr plan of care. Signatures: Dispatcher [employer] EDMS Soham Keating, RN RN Felix Rollins MD MD [facility] Juan J Nieves MD MD rn Bryson, James, RN RN jb4 Caesar Mccoy MD MD tw4 Kathy Benitez RN RN ll1 Corrections: (The following items were deleted from the chart) 06/25 22:10 21:51 06/25/2020 21:51 Discharged to Home. Impression: Abdominal tenderness. Condition tw4 is Stable. Forms are Medication Reconciliation Form, Thank You Letter, Antibiotic Education, Prescription Opioid Use. Follow up: Private Physician; When: Upon discharge from the Emergency Department; Reason: If symptoms return, Recheck today's complaints, Continuance of care, Re-evaluation by your physician. Problem is new. Symptoms have improved. tw4 06/26 05:05 04:42 06/26/2020 04:42 Discharged to Home. Impression: Abdominal tenderness; Anemia in jb4 other chronic diseases classified elsewhere. Condition is Stable. Prescriptions for Bentyl 20 mg Oral Tablet - take 1 tablet by ORAL route every 6 hours As needed; 20 tablet, Protonix 40 mg Oral Tablet - take 1 tablet by ORAL route once daily; 30 tablet. and Forms are Medication Reconciliation Form, Thank You Letter, Antibiotic Education, Prescription Opioid Use. Follow up: Private Physician; When: Upon discharge from the Emergency Department; Reason: Recheck today's complaints, Continuance of care, Re-evaluation by your physician. Problem is new. Symptoms have improved. tw4
[2020-06-25 22:09] LABS: Anisocytosis 2+; Blood Morphology Comment NOTED (NOT SEEN); Hypochromasia 3+; Macrocytosis 1+; Ovalocytes 2+; Platelet Estimate DECR; Platelets, Giant SEEN; Rouleau NOTED; White Blood Cell Scan OK (OK)
[2020-06-26] MEDS ORDERED: NA CHLORIDE 0.9% 50 ML ONE (00:05)
[2020-06-30 08:19] VITALS: TEMP 99.3
[2020-06-30 08:20] VITALS: BP 105/58; O2SAT 98
== END 2020-06-26 05:05 | disposition home or self-care (01) ==
LOC: ER 17:53
PROC: 30233N1 Transfusion of Nonautologous Red Blood Cells into Peripheral Vein, Percutaneous Approach (ICD-10-PCS; principal; 2020-06-26)
DX: D64.9 Anemia, unspecified (principal); F17.210 Nicotine dependence, cigarettes, uncomplicated
CPT/HCPCS: 36415; 74177; 76705; 80048; 80076; 82565; 83690; 85018; 85025; 86850; 86900; 86901; 99284; J2175; J2405; P9016; Q9967

== ENCOUNTER 2020-12-25 00:09 | Emergency (ER) | payer SELFPAY ==
[2020-12-25 00:45] LABS: Absolute Lymphocytes (CBC) 2.6 K/uL (0.7-4.9); Basophils % 0.7 % (0-1.3); Hematocrit 24.8 % (36.0-45.0); MPV 9.4 fL (7.6-11.3); RBC Red Blood Cell Count 4.49 M/uL (3.86-4.86)
[2020-12-25 01:03] LABS: Protime INR 1.03
[2020-12-25 01:05] LABS: ALT/SGPT 14 U/L (12-78); AST/SGOT 11 U/L (15-37); Albumin 3.6 g/dL (3.4-5.0); Alkaline Phosphatase 52 U/L (45-117); BUN Blood Urea Nitrogen 13 mg/dL (7-18); Bicarbonate 22 mmol/L (21-32); Bilirubin Direct < 0.1 mg/dL (0-0.2); Bilirubin Total 0.3 mg/dL (0.2-1.0); Glucose Level 112 mg/dL (74-106); Potassium 3.2 mmol/L (3.5-5.1); Protein, Total 7.6 g/dL (6.4-8.2); Sodium Level 140 mmol/L (136-145)
[2020-12-25 01:24] LABS: Anisocytosis 1+; Blood Morphology Comment NOTED (NOT SEEN); Hypochromasia 3+; Macrocytosis 1+; Ovalocytes 1+; Platelet Estimate ADEQ; Platelets, Giant SEEN; White Blood Cell Scan OK (OK)
[2020-12-25 02:12] LABS: Urine Blood Negative (Negative); Urine Glucose Negative (Negative); Urine Protein 2+ (Negative); Urine Specific Gravity 1.025 (1.005-1.030)
[2020-12-25 02:49] LABS: Barbiturates NEGATIVE (NEGATIVE); Benzodiazepines NEGATIVE (NEGATIVE); Cocaine NEGATIVE (NEGATIVE); METHAMPHETAM POSITIVE (NEGATIVE); Methadone NEGATIVE (NEGATIVE); Opiates NEGATIVE (NEGATIVE); Phencyclidine NEGATIVE (NEGATIVE); THC Cannibis NEGATIVE (NEGATIVE)
[2020-12-25] MEDS ORDERED: LORazepam 2 MG/ML VIAL ONE (03:06)
[2020-12-25] MEDS ORDERED: NICOTINE 21 MG/PAT TD ONE (07:04)
--- NOTE | 2020-12-25 08:13 | EDPHYS ---
Physician Documentation [facility] Name: Isis Ledezma Age: 55 yrs Sex: Female : 1965 Arrival Date: 12/25/2020 Time: 00:11 Bed 18 Private MD: ED Physician Darrin Barillas HPI: 12/25 05:22 This 55 yrs old Black Female presents to ER via Ambulatory with complaints of Suicidal tw4 Ideation. 05:22 The patient presents to the emergency department with suicide ideation, but the patient tw4 has no formulated plan. Onset: The symptoms/episode began/occurred today. Associated signs and symptoms: The patient has no apparent associated signs or symptoms. Severity of symptoms: At their worst the symptoms were moderate. The patient has not experienced similar symptoms in the past. [employer]: 00:20 LMP 12/15/2020 bb Historical: - Allergies: 00:20 No Known Allergies; bb - Home Meds: 00:20 None [Active]; bb - PMHx: 00:20 None; bb - PSHx: 00:20 Appendectomy; ; bb - Immunization history:: Adult Immunizations unknown. - Social history:: Smoking status: Patient reports the use of cigarette tobacco products, smokes one-half pack cigarettes per day, Patient uses alcohol, occasionally. street drugs, Methamphetamine (Meth). ROS: 05:22 Psych: Positive for suicidal ideation. tw4 05:23 Constitutional: Negative for fever, chills, and weight loss, Eyes: Negative for injury, tw4 pain, redness, and discharge, Neck: Negative for injury, pain, and swelling, Cardiovascular: Negative for chest pain, palpitations, and edema, Respiratory: Negative for shortness of breath, cough, wheezing, and pleuritic chest pain, Abdomen/GI: Negative for abdominal pain, nausea, vomiting, diarrhea, and constipation, Back: Negative for injury and pain, MS/Extremity: Negative for injury and deformity, Skin: Negative for injury, rash, and discoloration. Exam: 05:22 Constitutional: This is a well developed, well nourished patient who is awake, alert, tw4 and in no acute distress. Head/Face: Normocephalic, atraumatic. Chest/axilla: Normal chest wall appearance and motion. Nontender with no deformity. No lesions are appreciated. Cardiovascular: Regular rate and rhythm with a normal S1 and S2. No gallops, murmurs, or rubs. Normal PMI, no JVD. No pulse deficits. Respiratory: Lungs have equal breath sounds bilaterally, clear to auscultation and percussion. No rales, rhonchi or wheezes noted. No increased work of breathing, no retractions or nasal flaring. Abdomen/GI: Soft, non-tender, with normal bowel sounds. No distension or tympany. No guarding or rebound. No evidence of tenderness throughout. Back: No spinal tenderness. No costovertebral tenderness. Full range of motion. Skin: Warm, dry with normal turgor. Normal color with no rashes, no lesions, and no evidence of cellulitis. MS/ Extremity: Pulses equal, no cyanosis. Neurovascular intact. Full, normal range of motion. Neuro: Awake and alert, GCS 15, oriented to person, place, time, and situation. Cranial nerves II-XII grossly intact. Motor strength 5/5 in all extremities. Sensory grossly intact. Cerebellar exam normal. Normal gait. 05:22 Psych: exam not indicated, Behavior/mood is pleasant, cooperative. Vital Signs: 00:15 BP 170 / 68; Pulse 109; Resp 16 S; Temp 98.2(O); Pulse Ox 98% on R/A; Weight 77.11 kg bb (R); Height 5 ft. 4 in. (162.56 cm) (R); Pain 0/10; 00:30 BP 146 / 70; Pulse 107; Resp 18; Pulse Ox 97% on R/A; lp1 01:00 BP 149 / 91; Pulse 106; Resp 18; Pulse Ox 98% on R/A; lp1 01:30 BP 149 / 70; Pulse 105; Resp 15; Pulse Ox 98% on R/A; lp1 02:30 BP 140 / 79; Pulse 102; Resp 28; Pulse Ox 99% on R/A; lp1 03:00 BP 139 / 69; Pulse 98; Resp 20; Pulse Ox 99% on R/A; lp1 04:00 BP 130 / 67; Pulse 99; Resp 19; Pulse Ox 99% on R/A; lp1 05:15 BP 141 / 75; Pulse 87; Resp 20; Pulse Ox 100% on R/A; lp1 06:00 BP 143 / 74; Pulse 90; Resp 20; Pulse Ox 100% on R/A; lp1 00:15 Body Mass Index 29.18 (77.11 kg, 162.56 cm) bb MDM: 00:12 Patient medically screened. tw4 08:12 Differential diagnosis: drug withdrawal. acute psychotic break, depression. Data ni reviewed: vital signs, nurses notes, lab test result(s), EKG. Data interpreted: personnel monitor: rate is 90 beats/min, rhythm is regular, Pulse oximetry: on room air is 100 %. Test interpretation: by ED physician or midlevel provider: ECG. Counseling: I had a detailed discussion with the patient and/or guardian regarding: the historical points, exam findings, and any diagnostic results supporting the discharge/admit diagnosis, lab results, radiology results, the need to transfer to another facility, for higher level of care, [facility] does not immediately have the required specialist. 12/25 00:28 Order name: Acetaminophen; Complete Time: 03:10 12/25 00:28 Order name: Basic Metabolic Panel; Complete Time: 03:10 12/25 03:10 Interpretation: Normal except: K 3.2; GLUC 112; CL 109. tw12/25 00:28 Order name: CBC with Diff; Complete Time: 03:10 12/25 03:11 Interpretation: Normal except: HGB 7.3; HCT 24.8; MCV 55.2; MCH 16.3; MCHC 29.5; RDW tw4 21.2. 12/25 00:28 Order name: ETOH Level; Complete Time: 03:10 12/25 03:11 Interpretation: Within normal limits: ETOH < 10. 12/25 00:28 Order name: Hepatic Function; Complete Time: 03:10 12/25 03:11 Interpretation: Normal except: AST 11; GLOB 4.0; A/G 0.9. 12/25 00:28 Order name: PT-INR; Complete Time: 03:10 12/25 00:28 Order name: Ptt, Activated; Complete Time: 03:10 12/25 00:28 Order name: Salicylate; Complete Time: 03:10 12/25 03:11 Interpretation: Normal except: BETINA 2.2. 12/25 00:28 Order name: Urine Drug Screen; Complete Time: 03:10 tw4 12/25 03:11 Interpretation: Normal except: METHAMPHETAMINE POSITIVE. tw4 12/25 00:59 Order name: CBC Smear Scan; Complete Time: 03:10 EDMS 12/25 02:11 Order name: Urine Dipstick-Ancillary; Complete Time: 03:10 EDMS 12/25 03:11 Interpretation: Normal except: UPROT 2+; U NIT Positive. tw4 12/25 05:40 Order name: SARS-COV-2 RT PCR; Complete Time: 16:07 EDMS 12/25 00:28 Order name: Suicide Precautions; Complete Time: 00:51 tw4 12/25 00:28 Order name: EKG; Complete Time: 00:29 tw4 12/25 00:28 Order name: EKG - Nurse/Tech; Complete Time: 00:38 tw4 12/25 00:28 Order name: IV Saline Lock; Complete Time: 00:51 tw4 12/25 00:28 Order name: Labs collected and sent; Complete Time: 00:51 tw4 12/25 00:28 Order name: Suicide Screening ([place]); Complete Time: 00:51 tw4 12/25 00:28 Order name: Urine Dipstick-Ancillary (obtain specimen); Complete Time: 04:14 tw4 12/25 07:08 Order name: Diet Finger Food; Complete Time: 07:09 [facility] 12/25 10:45 Order name: Diet Finger Food; Complete Time: 10:45 6 12/25 11:50 Order name: Diet Finger Food; Complete Time: 14:49 6 12/25 16:08 Order name: Orthostatics ni Administered Medications: 02:50 Drug: Ativan (LORazepam) 1 mg Route: IVP; Site: right antecubital; lp1 03:27 Follow up: Response: Marked relief of symptoms; Anxiety decreased lp1 06:46 Drug: Nicotine 21 mg/24 hr 1 patches {Note: Right posterior shoulder .} Route: lp1 Transdermal; Site: affected area; Disposition: 12/25/20 16:11 Discharged to Home. Impression: Suicidal ideations, Iron deficiency anemia, Abuse of non-psychoactive substances, Adverse effect of amphetamines - abuse, Hypokalemia. - Condition is Stable. - Discharge Instructions: Iron Deficiency Anemia, Adult, Iron-Rich Diet, Potassium Content of Foods, Substance Use Disorder, Suicidal Feelings: How to Help Yourself, Helping Someone Who is Suicidal, Stress and Stress Management, Iron Deficiency Anemia, Adult, [id number], Hypokalemia. - Prescriptions for Ferrous Sulfate 325 mg (65 mg Iron) Oral Tablet - take 1 tablet by ORAL route every 8 hours; 90 tablet. - Medication Reconciliation Form, Thank You Letter, Antibiotic Education, Prescription Opioid Use form. - Follow up: Private Physician; When: 2 - 3 days; Reason: Recheck today's complaints, Continuance of care, Re-evaluation by your physician. Follow up: Esteban Daniel MD; When: 2 - 3 days; Reason: Recheck today's complaints, Re-evaluation by your physician. - Problem is new. - Symptoms have improved. Signatures: Dispatcher [employer] [facility] Darrin Barillas MD MD cha Ballard, Brenda, RN RN bb Marcia Jason RN RN lp1 Caesar Mccoy MD MD tw4 Christa Lima RN RN tr6 Corrections: (The following items were deleted from the chart) 04:45 04:16 CORONAVIRUS+MR.LAB.BRZ ordered. [facility] 16:09 08:12 12/25/2020 08:12 Transfer ordered to Psych Facility. Diagnosis is Suicidal ni ideations; Suicide attempt; Major depressive disorder, recurrent; Abuse of non-psychoactive substances; Adverse effect of amphetamines. Reason for transfer: Higher level of care. Accepting physician is to psych. Condition is Fair. Problem is new. Symptoms have improved. [facility] 16:12 16:11 12/25/2020 16:11 Discharged to Home. Impression: Suicidal ideations; Iron ni deficiency anemia; Abuse of non-psychoactive substances; Adverse effect of amphetamines - abuse. Condition is Stable. Forms are Medication Reconciliation Form, Thank You Letter, Antibiotic Education, Prescription Opioid Use. Follow up: Private Physician; When: 2 - 3 days; Reason: Recheck today's complaints, Continuance of care, Re-evaluation by your physician. Follow up: Esteban Daniel; When: 2 - 3 days; Reason: Recheck today's complaints, Re-evaluation by your physician. Problem is new. Symptoms have improved. ni 16:23 16:12 12/25/2020 16:11 Discharged to Home. Impression: Suicidal ideations; Iron tr6 deficiency anemia; Abuse of non-psychoactive substances; Adverse effect of amphetamines - abuse; Hypokalemia. Condition is Stable. Forms are Medication Reconciliation Form, Thank You Letter, Antibiotic Education, Prescription Opioid Use. Follow up: Private Physician; When: 2 - 3 days; Reason: Recheck today's complaints, Continuance of care, Re-evaluation by your physician. Follow up: Esteban Daniel; When: 2 - 3 days; Reason: Recheck today's complaints, Re-evaluation by your physician. Problem is new. Symptoms have improved. ni
--- NOTE | 2020-12-25 08:13 | ER ---
Nurse's Notes [facility] Name: Isis Ledezma Age: 55 yrs Sex: Female : 1965 Arrival Date: 12/25/2020 Time: 00:11 Bed 18 Private MD: Diagnosis: Suicidal ideations;Iron deficiency anemia;Abuse of non-psychoactive substances;Adverse effect of amphetamines-abuse;Hypokalemia Presentation: 12/25 00:11 Chief complaint: Patient states: this RN was called to the parking lot to assist pt bb from private vehicle when I arrived pt was standing outside of her car saying "I just need someone to cut my wrists and throat" pt had a knife on front seat of the car which was removed and given to Security. Coronavirus screen: At this time, the client does not indicate any symptoms associated with coronavirus-19. Ebola Screen: No symptoms or risks identified at this time. 00:11 Method Of Arrival: Ambulatory bb 00:15 Initial Sepsis Screen: Does the patient meet any 2 criteria? No. Patient's initial bb sepsis screen is negative. Does the patient have a suspected source of infection? No. Patient's initial sepsis screen is negative. Risk Assessment: Do you want to hurt yourself or someone else? Patient reports desire/thoughts of hurting themselves or someone else. Provider notified. Onset of symptoms is unknown. 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 - Social history:: Smoking status: Patient reports the use of cigarette tobacco products, smokes one-half pack cigarettes per day, Patient uses alcohol, occasionally. street drugs, Methamphetamine (Meth). Screenin:45 Abuse screen: Denies threats or abuse. Denies injuries from another. Nutritional lp1 screening: No deficits noted. Tuberculosis screening: No symptoms or risk factors identified. Fall Risk None identified. Assessment: 00:15 General: Appears in no apparent distress. Behavior is cooperative. Pain: Denies pain. lp1 Neuro: Level of Consciousness is awake, alert, obeys commands, Oriented to person, place, situation. Cardiovascular: Patient's skin is warm and dry. Respiratory: Airway is patent Respiratory effort is even, unlabored. GI: Abdomen is non-distended. : No signs and/or symptoms were reported regarding the genitourinary system. EENT: No signs and/or symptoms were reported regarding the EENT system. Derm: Skin is intact, Skin is dry, Skin is normal. Musculoskeletal: No deficits noted. 01:22 Reassessment: Patient appears in no apparent distress at this time. Patient is alert, lp1 oriented x 3, equal unlabored respirations, skin warm/dry/pink. Patient eating cup of ice, appears calm. 02:45 Reassessment: Patient appears restless, rocking in stretcher, states "I just can't get lp1 comfortable"; verbal order from Dr. Mccoy for Ativan 1mg IV now. 03:29 Reassessment: Patient appears calm at this time; reports anxiety relief; given [facility]ers per request. 04:39 Reassessment: Patient talking on iPad with Nirmal [facility]. lp1 06:00 Reassessment: Patient up to bathroom, independent, assisted by nurse. lp1 06:45 Reassessment: Requesting to go outside and smoke a cigarette, informed of [facility]-sm[facility] policies; Verbal order from Provider for Nicotine patch 21mg TD now. 11:51 Reassessment: pt at nursing station on phone with niece. tr6 12:56 Reassessment: pt at nursing station on phone with pts sister. tr6 13:51 Reassessment: pt at nursing station on phone with family member. tr6 14:13 Reassessment: pts mother at bedside. tr6 15:37 Reassessment: MD Barillas at bedside. tr6 Psych: 00:00 [place] Suicide Severity Screening: In the past month, have you wished you were lp1 or wished you could go to sleep and not wake up? Patient responds "yes." Based off the client's responses additional C-SSRS screening is required. "In the past month, have you actually had any thoughts of killing yourself?" Patient responds "yes." Based off the client's response additional [place] suicide severity screening questions to be further documented on paper forms. "In your lifetime, have you ever done anything, started to do anything, or prepared to do anything to end your life?" Patient responds "no." Patient reports being kicked out of house by for losing $40 tonight. Subjective: Patient's mood is sad, Delusions are denied, Hallucinations are denied Having thoughts of suicide. Plan for suicide is Reports wanting to cut neck and wrists with knife. Objective: Patient is cooperative, Speech is normal, Affect is appropriate. Interventions: Removed personal items and placed in bag. Patient placed in hospital gown. Searched person for dangerous items. Safety Checks: Personal items have been removed. Door is open. No visitors are present at this time. Patient uses methamphetamines Last use was tonight; reports "snorting" it. Vital Signs: 00:15 BP 170 / 68; Pulse 109; Resp 16 S; Temp 98.2(O); Pulse Ox 98% on R/A; Weight 77.11 kg bb (R); Height 5 ft. 4 in. (162.56 cm) (R); Pain 0/10; 00:30 BP 146 / 70; Pulse 107; Resp 18; Pulse Ox 97% on R/A; lp1 01:00 BP 149 / 91; Pulse 106; Resp 18; Pulse Ox 98% on R/A; lp1 01:30 BP 149 / 70; Pulse 105; Resp 15; Pulse Ox 98% on R/A; lp1 02:30 BP 140 / 79; Pulse 102; Resp 28; Pulse Ox 99% on R/A; lp1 03:00 BP 139 / 69; Pulse 98; Resp 20; Pulse Ox 99% on R/A; lp1 04:00 BP 130 / 67; Pulse 99; Resp 19; Pulse Ox 99% on R/A; lp1 05:15 BP 141 / 75; Pulse 87; Resp 20; Pulse Ox 100% on R/A; lp1 06:00 BP 143 / 74; Pulse 90; Resp 20; Pulse Ox 100% on R/A; lp1 00:15 Body Mass Index 29.18 (77.11 kg, 162.56 cm) ED Course: 00:11 Patient arrived in ED. mw2 00:12 Caesar Mccoy MD is Attending Physician. tw4 00:15 Arm band placed on Patient placed in an exam room, on a stretcher. bb 00:19 Triage completed. bb 00:30 Patient has correct armband on for positive identification. Placed in gown. Bed in low lp1 position. Side rails up X2. 00:30 library monitor on. Pulse ox on. NIBP on. Sitter at bedside. lp1 00:41 Marcia Jason, RN is Primary Nurse. lp1 04:20 called [facility] Crisis Lines [phone] spoke to Rayna to have a screener evaluate mw2 the patient. 07:28 Attending Physician role handed off by Caesar Mccoy MD ni 07:28 Darrin Barillas MD is Attending Physician. ni 07:40 Josselyn from [facility] called to decline the patient in transfer they are at eb capacity. 07:49 Isis from [facility] called to decline the patient in transfer. they do not have eb any beds available at this time. 12:36 called the [facility] Crisis Line at the request of the patient/ spoke with Hayley who eb will page the screener [facility] extension specialist. 14:27 connected Yefri from the [facility] via [employer] on the ipad with the patient for eb screening. 16:10 Esteban Daniel MD is Referral Physician. ni 16:23 IV discontinued, intact, bleeding controlled, No redness/swelling at site. Pressure tr6 dressing applied. Administered Medications: 02:50 Drug: Ativan (LORazepam) 1 mg Route: IVP; Site: right antecubital; lp1 03:27 Follow up: Response: Marked relief of symptoms; Anxiety decreased lp1 06:46 Drug: Nicotine 21 mg/24 hr 1 patches {Note: Right posterior shoulder .} Route: lp1 Transdermal; Site: affected area; Outcome: 08:12 ER care complete, transfer ordered by . ni 16:11 Discharge ordered by . ni 16:22 Discharged to home ambulatory. tr6 16:22 Condition: pt reevaluated and cleared for discharged by and Marvel Scruggs 16:22 Discharge instructions given to patient, family, mother at bedside Instructed on discharge instructions, follow up and referral plans. medication usage, safety practices, Demonstrated understanding of instructions, follow-up care, medications, Prescriptions given X 1. 16:23 Patient left the ED. tr6 Signatures: Darrin Barillas MD MD cha Ballard, Brenda, RN RN bb Marcia Jason, RN RN lp1 Caesar Mccoy MD MD 4 Smitha Suarez 2 Myesha Yates Tiffany, RN RN tr6
[2020-12-25 16:42] VITALS: TEMP 98.2
[2020-12-25 16:52] VITALS: O2SAT 100
[2020-12-25 16:53] VITALS: BP 143/74
== END 2020-12-25 16:23 | disposition home or self-care (01) ==
LOC: ER 00:09
DX: F55.8 Abuse of other non-psychoactive substances (principal); F15.10 Other stimulant abuse, uncomplicated; E87.6 Hypokalemia; F17.210 Nicotine dependence, cigarettes, uncomplicated; Z20.822 Contact with and (suspected) exposure to COVID-19
CPT/HCPCS: 36415; 80048; 80076; 80307; 80320; 80329; 81003; 85025; 85610; 85730; 93005; 96374; 99285; U0003

== ENCOUNTER 2022-07-17 11:17 | Observation (INO) | payer SELFPAY ==
[2022-07-17] MEDS ORDERED: ONDANSETRON 4 MG/2 ML VIAL ONE ×2 (11:26→12:00)
[2022-07-17] MEDS ORDERED: MORPHINE 4 MG/ML SYR ONE (11:26)
[2022-07-17] MEDS ORDERED: NA CHLORIDE 0.9% 1,000 ML ONE (11:27)
[2022-07-17] MEDS ORDERED: FAMOTIDINE 20 MG/2 ML VIAL IV ONE (11:27)
[2022-07-17 11:34] LABS: Urine Blood Negative (Negative); Urine Glucose Negative (Negative); Urine Protein 1+ (Negative); Urine Specific Gravity 1.025 (1.005-1.030); Urine pH 6.5 (5.0-7.0)
[2022-07-17 11:43] LABS: Absolute Lymphocytes (CBC) 1.3 K/uL (0.7-4.9); Hematocrit 20.1 % (36.0-45.0); Lymphocytes % 22.6 % (15.3-44.8); MCV 55.5 fL (80-100); MPV 9.5 fL (7.6-11.3); RBC Red Blood Cell Count 3.63 M/uL (3.86-4.86)
[2022-07-17 11:44] LABS: Urine Bacteria <20 /HPF (<20); Urine Mucus 1+ /HPF (None Seen); Urine RBC <5 /HPF (None Seen)
[2022-07-17] MEDS ORDERED: PANTOPRAZOLE 40 MG INJ ONE (12:00)
[2022-07-17] MEDS ORDERED: HYDROMORPHONE HCL 1 MG/ML INJ ONE (12:00)
[2022-07-17 12:21] LABS: Blood Morphology Comment NOTED (NOT SEEN); Platelet Estimate DECR; White Blood Cell Scan OK (OK)
[2022-07-17 12:22] LABS: Anisocytosis 1+; Hypochromasia 3+; Poikilocytosis SLIGHT
[2022-07-17 12:25] LABS: Albumin 3.3 g/dL (3.4-5.0); Bilirubin Total 0.2 mg/dL (0.2-1.0); Potassium 3.4 mmol/L (3.5-5.1); Protein, Total 7.4 g/dL (6.4-8.2)
[2022-07-17 12:37] LABS: Ferritin 1.4 ng/mL (8-388); Folic Acid, (Folate) 5.9 ng/mL (3.1-17.5)
--- NOTE | 2022-07-17 12:39 | RAD REPORT ---
EXAM DESCRIPTION: RAD - Chest Single View - 07/17/2022 12:21 pm CLINICAL HISTORY: CHEST PAIN Chest pain. COMPARISON: Chest Single View dated 09/23/2019; Chest Single View dated 07/30/2016 FINDINGS: Portable technique limits examination quality. The lungs are grossly clear. The heart is upper limit of normal in size. No displaced fractures. IMPRESSION: No acute intrathoracic process suspected.
--- NOTE | 2022-07-17 12:53 | ER ---
Nurse's Notes [facility] Name: Isis Ledezma Age: 57 yrs Sex: Female : 1965 Arrival Date: 07/17/2022 Time: 11:19 Bed 3 Private MD: Diagnosis: Chest pain, unspecified;Epigastric abdominal tenderness;Iron deficiency anemia, unspecified-hypochromic, microcytic;Hypokalemia;Leiomyoma of uterus, unspecified;Abnormal findings on diagnostic imaging of liver and biliary tract-dilated CBD Presentation: 07/17 11:40 Chief complaint: Patient states: RUQ pain 2-3 days. N/V. Coronavirus screen: At this ld1 time, the client does not indicate any symptoms associated with coronavirus-19. Ebola Screen: No symptoms or risks identified at this time. Initial Sepsis Screen: Does the patient meet any 2 criteria? No. Patient's initial sepsis screen is negative. Does the patient have a suspected source of infection? No. Patient's initial sepsis screen is negative. Risk Assessment: Do you want to hurt yourself or someone else? Patient reports no desire to harm self or others. Onset of symptoms was July 17, 2022. 11:40 Method Of Arrival: EMS: [facility] ld1 11:40 Acuity: TAMICA 3 ld1 Triage Assessment: 11:40 General: Appears in no apparent distress. comfortable, Behavior is calm, cooperative, ld1 appropriate for age. Pain: Complains of pain in right upper quadrant Pain does not radiate. Pain currently is 9 out of 10 on a pain scale. Quality of pain is described as sharp, shooting, throbbing, Pain began suddenly. EENT: No signs and/or symptoms were reported regarding the EENT system. Neuro: Level of Consciousness is awake, alert, obeys commands, Oriented to person, place, time, situation. Cardiovascular: Capillary refill < 3 seconds Patient's skin is warm and dry. Rhythm is regular. Respiratory: Airway is patent Respiratory effort is even, unlabored. GI: Abdomen is round non-distended, Reports upper abdominal pain, nausea, vomiting. : No signs and/or symptoms were reported regarding the genitourinary system. Derm: No signs and/or symptoms reported regarding the dermatologic system. Musculoskeletal: No signs and/or symptoms reported regarding the musculoskeletal system. Historical: - Allergies: 11:40 No Known Allergies; ld1 - PMHx: 11:40 None; ld1 - PSHx: 11:40 Appendectomy; section; ld1 - Immunization history:: Adult Immunizations up to date, Client reports receiving the 2nd dose of the Covid vaccine. - Social history:: Smoking status: Patient denies any tobacco usage or history of. Patient/guardian denies using alcohol. - Family history:: not pertinent. Screenin:43 [facility] ED Fall Risk Assessment (Adult) History of falling in the last 3 months, ld1 including since admission No falls in past 3 months (0 pts) Confusion or Disorientation No (0 pts) Intoxicated or Sedated No (0 pts). Abuse screen: Denies threats or abuse. Denies injuries from another. Nutritional screening: No deficits noted. Tuberculosis screening: No symptoms or risk factors identified. Assessment: 10:30 Reassessment: Pt c/o abdominal pain. Notified ERP. See [facility] for orders. ld1 11:00 Reassessment: Patient and/or family updated on plan of care and expected duration. Pain ld1 level reassessed. Patient states feeling better. Patient states symptoms have improved. 11:43 Reassessment: See triage assessmnet. ld1 12:00 Reassessment: Patient appears in no apparent distress at this time. No changes from ld1 previously documented assessment. Patient is alert, oriented x 3, equal unlabored respirations, skin warm/dry/pink. 13:00 Reassessment: Patient appears in no apparent distress at this time. Patient and/or ld1 family updated on plan of care and expected duration. Pain level reassessed. Patient is alert, oriented x 3, equal unlabored respirations, skin warm/dry/pink. 14:21 Reassessment: Patient appears in no apparent distress at this time. Patient is alert, ld1 oriented x 3, equal unlabored respirations, skin warm/dry/pink. Patient denies pain at this time. 15:21 Reassessment: Patient appears in no apparent distress at this time. Patient and/or ld1 family updated on plan of care and expected duration. Pain level reassessed. Patient is alert, oriented x 3, equal unlabored respirations, skin warm/dry/pink. Vital Signs: 11:40 BP 155 / 92; Pulse 75; Resp 18; Temp 97.3(TE); Pulse Ox 100% on R/A; Weight 81.65 kg; ld1 Height 5 ft. 4 in. (162.56 cm); Pain 9/10; 13:00 BP 143 / 74; Pulse 73; Resp 12; Pulse Ox 100% on R/A; ld1 14:22 BP 138 / 75; Pulse 70; Resp 12; Pulse Ox 99% on R/A; ld1 15:21 BP 140 / 70; Pulse 69; Resp 18; Pulse Ox 100% on R/A; Pain 0/10; ld1 11:40 Body Mass Index 30.90 (81.65 kg, 162.56 cm) ld1 ED Course: 11:19 Patient arrived in ED. ld1 11:20 Darrin Barillas MD is Attending Physician. ni 11:34 Urine Microscopic Only Sent. ld1 11:39 Olinda Villegas RN is Primary Nurse. ld1 11:40 Triage completed. ld1 11:40 Arm band placed on right wrist. ld1 11:43 No provider procedures requiring assistance completed. Maintain EMS IV. Dressing ld1 intact. Good blood return noted. Site clean \T\ dry. Gauge \T\ site: 22g LAC. 11:43 Patient has correct armband on for positive identification. Placed in gown. Bed in low ld1 position. Call light in reach. Side rails up X2. monitoring analyst on. Pulse ox on. NIBP on. Door closed. Noise minimized. Warm blanket given. 12:22 Chest Single View XRAY In Process Unspecified. EDMS 12:49 Velvet Boyd MD is Hospitalizing Provider. [facility] 12:50 CT Abd/Pelvis - IV Contrast Only In Process Unspecified. EDMS 12:50 CT Chest For PE Angio In Process Unspecified. EDMS 13:07 US Abdomen Limited In Process Unspecified. EDMS 15:22 Patient admitted, IV remains in place. ld1 Administered Medications: 11:33 Drug: NS 0.9% 1000 ml Route: IV; Rate: 1 bolus; Site: left antecubital; ld1 11:33 Drug: Pepcid (famotidine) 20 mg Route: IVP; Site: left antecubital; ld1 11:33 Drug: morphine 4 mg Route: IVP; Infused Over: 4 mins; Site: left antecubital; ld1 11:33 Drug: Zofran (Ondansetron) 4 mg Route: IVP; Site: left antecubital; ld1 12:34 Drug: ProTONIX (pantoprazole) 40 mg Route: IVP; Site: left antecubital; ld1 12:34 Drug: Dilaudid (HYDROmorphone) 1 mg Route: IVP; Site: left antecubital; ld1 12:34 Drug: Zofran (Ondansetron) 4 mg Route: IVP; Site: left antecubital; ld1 13:56 Drug: NS 0.9% with KCl 20 mEq/L 1000 ml Route: IV; Rate: 125 ml/hr; Site: left ld1 antecubital; Medication: 11:43 VIS not applicable for this client. ld1 Outcome: 12:53 Decision to Hospitalize by Provider. ni 15:22 Admitted to Med/surg accompanied by tech, via wheelchair, room 215, with chart, Report ld1 called to IMMANUEL Pettit 15:22 Condition: stable 15:22 Instructed on the need for admit. 16:04 Patient left the ED. ld1 Signatures: Dispatcher [employer] Darrin Paredes MD MD cha Dibbern, Lauren, RN RN ld1 Corrections: (The following items were deleted from the chart) 14:19 11:43 Reassessment: See triage assessmnet ld1 ld1 14:22 14:19 Reassessment: Patient appears in no apparent distress at this time. Patient ld1 and/or family updated on plan of care and expected duration. Pain level reassessed. Patient is alert, oriented x 3, equal unlabored respirations, skin warm/dry/pink. ld1
[2022-07-17 12:54] LABS: RBC Red Blood Cell Count 3.63 M/uL (3.86-4.86)
--- NOTE | 2022-07-17 12:54 | EDPHYS ---
Physician Documentation [facility] Name: Isis Ledezma Age: 57 yrs Sex: Female : 1965 Arrival Date: 07/17/2022 Time: 11:19 Bed 3 Private MD: CINDY Physician Darrin Barillas HPI: 07/17 12:31 This 57 yrs old Black Female presents to ER via EMS with complaints of Abdominal Pain. ni 12:31 The patient or guardian reports chest pain that is located primarily in the anterior ni chest wall, right. Onset: 2 day(s) ago. The patient presents with abdominal pain in the epigastric area, in the upper abdomen. Onset: The symptoms/episode began/occurred 2 day(s) ago. The pain radiates to right back. The symptoms do not radiate. Associated signs and symptoms: none. The symptoms are described as crampy. Modifying factors: The symptoms are alleviated by nothing, the symptoms are aggravated by nothing. Associated signs and symptoms: The patient has no apparent associated signs or symptoms. Historical: - Allergies: 11:40 No Known Allergies; ld1 - PMHx: 11:40 None; ld1 - PSHx: 11:40 Appendectomy; section; ld1 - Immunization history:: Adult Immunizations up to date, Client reports receiving the 2nd dose of the Covid vaccine. - Social history:: Smoking status: Patient denies any tobacco usage or history of. Patient/guardian denies using alcohol. - Family history:: not pertinent. ROS: 12:31 Constitutional: Negative for fever, chills, and weight loss, Eyes: Negative for injury, ni pain, redness, and discharge, ENT: Negative for injury, pain, and discharge, Neck: Negative for injury, pain, and swelling, Cardiovascular: Negative for chest pain, palpitations, and edema, Back: Negative for injury and pain, : Negative for injury, bleeding, discharge, and swelling, MS/Extremity: Negative for injury and deformity, Skin: Negative for injury, rash, and discoloration, Neuro: Negative for headache, weakness, numbness, tingling, and seizure, Psych: Negative for depression, anxiety, suicide ideation, homicidal ideation, and hallucinations, Allergy/Immunology: Negative for hives, rash, and allergies, Endocrine: Negative for neck swelling, polydipsia, polyuria, polyphagia, and marked weight changes, Hematologic/Lymphatic: Negative for swollen nodes, abnormal bleeding, and unusual bruising. 12:31 Respiratory: Positive for shortness of breath, at rest. 12:31 Abdomen/GI: Positive for abdominal pain, of the epigastric area and right upper quadrant. Exam: 12:31 Constitutional: This is a well developed, well nourished patient who is awake, alert, ni and in no acute distress. Head/Face: Normocephalic, atraumatic. Eyes: Pupils equal round and reactive to light, extra-ocular motions intact. Lids and lashes normal. Conjunctiva and sclera are non-icteric and not injected. Cornea within normal limits. Periorbital areas with no swelling, redness, or edema. ENT: Nares patent. No nasal discharge, no septal abnormalities noted. Tympanic membranes are normal and external auditory canals are clear. Oropharynx with no redness, swelling, or masses, exudates, or evidence of obstruction, uvula midline. Mucous membranes moist. Neck: Trachea midline, no thyromegaly or masses palpated, and no cervical lymphadenopathy. Supple, full range of motion without nuchal rigidity, or vertebral point tenderness. No Meningismus. Chest/axilla: Normal chest wall appearance and motion. Nontender with no deformity. No lesions are appreciated. Cardiovascular: Regular rate and rhythm with a normal S1 and S2. No gallops, murmurs, or rubs. Normal PMI, no JVD. No pulse deficits. Respiratory: Lungs have equal breath sounds bilaterally, clear to auscultation and percussion. No rales, rhonchi or wheezes noted. No increased work of breathing, no retractions or nasal flaring. Back: No spinal tenderness. No costovertebral tenderness. Full range of motion. Female : Normal external genitalia. Skin: Warm, dry with normal turgor. Normal color with no rashes, no lesions, and no evidence of cellulitis. MS/ Extremity: Pulses equal, no cyanosis. Neurovascular intact. Full, normal range of motion. Neuro: Awake and alert, GCS 15, oriented to person, place, time, and situation. Cranial nerves II-XII grossly intact. Motor strength 5/5 in all extremities. Sensory grossly intact. Cerebellar exam normal. Normal gait. Psych: Awake, alert, with orientation to person, place and time. Behavior, mood, and affect are within normal limits. 12:31 Abdomen/GI: Inspection: abdomen appears normal, Bowel sounds: normal, Palpation: mild abdominal tenderness, in the epigastric area and right upper quadrant, Rectal exam: is unremarkable, rectal tone normal, Stool: guaiac negative, hemorrhoid(s), are not appreciated, mass, is not appreciated, swelling, is not appreciated, tenderness, is not appreciated, fecal impaction, is not appreciated, Liver: no appreciated palpable abnormalities, Hernia: not appreciated. 13:34 ECG was reviewed by the Attending Physician. ni Vital Signs: 11:40 BP 155 / 92; Pulse 75; Resp 18; Temp 97.3(TE); Pulse Ox 100% on R/A; Weight 81.65 kg; ld1 Height 5 ft. 4 in. (162.56 cm); Pain 9/10; 13:00 BP 143 / 74; Pulse 73; Resp 12; Pulse Ox 100% on R/A; ld1 14:22 BP 138 / 75; Pulse 70; Resp 12; Pulse Ox 99% on R/A; ld1 15:21 BP 140 / 70; Pulse 69; Resp 18; Pulse Ox 100% on R/A; Pain 0/10; ld1 11:40 Body Mass Index 30.90 (81.65 kg, 162.56 cm) ld1 MDM: 11:20 Patient medically screened. ni 12:40 Differential diagnosis: abnormal EKG, acute myocardial infarction, acute pericarditis, ni anxiety, coronary artery disease chest wall pain, cholecystitis, Cholelithiasis costochondritis, esophagitis, gastritis, gastroesophageal reflux disease (GERD), hiatal hernia, pancreatitis, peptic ulcer disease, pericarditis, pneumonia, pulmonary embolus, stable angina, thoracic aortic disection, unstable angina, bowel obstruction, cholecystitis, Cholelithiasis, gastritis, non-specific abd pain, pancreatitis, Peptic Ulcer Disease, Pyelonephritis, Ureterolithiasis, urinary tract infection. HEART Score: History: Slightly Suspicious (0), ECG: Normal (0), Age: > 45 and < 65 years (1), Risk Factors: > or = 3 Risk factors for atherosclerotic disease (2), [Hypertension] [Active Smoker] [+ Family HX] [Obesity] Troponin: < or = 1 x Normal Limit (0). The patient was not given aspirin in the Emergency Department. Not indicated due to patient's past medical history. The patient's deep vein thrombosis risk score was calculated as follows: Total Score: 0. This patient was found to be at low risk for a deep vein thrombosis by using the Well's assessment criteria. The patient's pulmonary embolism risk score was calculated as follows: Total Score: 0-2 points. This patient was found to be at low risk for a pulmonary embolism by using the Well's assessment criteria. JOSUE Risk Score: 1 - Three or more CAD risk factors, TOTAL SCORE = 1. Data reviewed: vital signs, nurses notes, lab test result(s), EKG, radiologic studies, CT scan, plain films. 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 Test interpretation: by ED physician or midlevel provider: ECG, plain radiologic studies. Counseling: I had a detailed discussion with the patient and/or guardian regarding: the historical points, exam findings, and any diagnostic results supporting the discharge/admit diagnosis, lab results, radiology results, the need for further work-up and treatment in the hospital. 07/17 11:20 Order name: CBC with Diff; Complete Time: 12:26 ld1 07/17 11:20 Order name: CMP; Complete Time: 12:26 ld1 07/17 11:20 Order name: Lipase; Complete Time: 12:26 ld1 07/17 11:22 Order name: Urine Microscopic Only; Complete Time: 12:13 [facility] 07/17 11:34 Order name: Urine Dipstick-Ancillary; Complete Time: 12:13 [facility] 07/17 11:56 Order name: Type And Screen [facility] 07/17 11:56 Order name: Retic Count; Complete Time: 13:35 [facility] 07/17 11:56 Order name: Folic Acid,Serum (folate); Complete Time: 12:38 [facility] 07/17 11:56 Order name: B12; Complete Time: 12:38 [facility] 07/17 11:56 Order name: TIBC; Complete Time: 12:38 [facility] 07/17 11:56 Order name: Ferritin; Complete Time: 12:38 [facility] 07/17 11:56 Order name: Iron Level [facility] 07/17 12:22 Order name: CBC Smear Scan; Complete Time: 12:26 [facility] 07/17 12:38 Order name: Troponin High Sensitivity; Complete Time: 12:57 [facility] 07/17 11:22 Order name: Chest Single View XRAY; Complete Time: 12:57 [facility] 07/17 11:56 Order name: CT Abd/Pelvis - IV Contrast Only; Complete Time: 13:35 [facility] 07/17 12:26 Order name: US Abdomen Limited; Complete Time: 13:35 [facility] 07/17 12:26 Order name: CT Chest For PE Angio; Complete Time: 13:35 [facility] 07/17 12:55 Order name: Bb Add On kj 07/17 13:23 Order name: Packed RBC Leukored [facility] 07/17 13:40 Order name: Cholangiogram [facility] 07/17 14:04 Order name: Urinalysis [facility] 07/17 14:04 Order name: Basic Metabolic Panel [facility] 07/17 14:04 Order name: Basic Metabolic Panel [facility] 07/17 14:04 Order name: CBC with Automated Diff [facility] 07/17 14:04 Order name: CBC with Automated Diff [facility] 07/17 11:20 Order name: IV Saline Lock; Complete Time: 11:20 [facility] 07/17 11:20 Order name: Labs collected and sent; Complete Time: 11:34 [facility] 07/17 11:20 Order name: Urine Dipstick-Ancillary (obtain specimen); Complete Time: 11:34 [facility] 07/17 11:22 Order name: EKG; Complete Time: 11:22 [facility] 07/17 11:22 Order name: EKG - Nurse/Tech; Complete Time: 13:29 [facility] 07/17 14:04 Order name: Clear Liquid [facility]IL EC:34 Rate is 76 beats/min. Rhythm is regular. QRS [place] is Normal. NV interval is normal. QRS ni interval is normal. QT interval is normal. No Q waves. T waves are Normal. No ST changes noted. Clinical impression: NSR w/ Non-specific ST/T Changes and No evidence of ischemia. Interpreted by me. Reviewed by me. Administered Medications: 11:33 Drug: NS 0.9% 1000 ml Route: IV; Rate: 1 bolus; Site: left antecubital; ld1 11:33 Drug: Pepcid (famotidine) 20 mg Route: IVP; Site: left antecubital; ld1 11:33 Drug: morphine 4 mg Route: IVP; Infused Over: 4 mins; Site: left antecubital; ld1 11:33 Drug: Zofran (Ondansetron) 4 mg Route: IVP; Site: left antecubital; ld1 12:34 Drug: ProTONIX (pantoprazole) 40 mg Route: IVP; Site: left antecubital; ld1 12:34 Drug: Dilaudid (HYDROmorphone) 1 mg Route: IVP; Site: left antecubital; ld1 12:34 Drug: Zofran (Ondansetron) 4 mg Route: IVP; Site: left antecubital; ld1 13:56 Drug: NS 0.9% with KCl 20 mEq/L 1000 ml Route: IV; Rate: 125 ml/hr; Site: left ld1 antecubital; Disposition Summary: 07/17/22 12:53 Hospitalization Ordered Hospitalization Status: Observation ni Provider: Velvet Boyd cha Location: Telemetry/MedSurg (observation) ni Condition: Stable ni Problem: new ni Symptoms: have improved ni Bed/Room Type: Standard [facility] Room Assignment: 215(07/17/22 14:52) [email or web address] Diagnosis - Chest pain, unspecified ni - Epigastric abdominal tenderness ni - Iron deficiency anemia, unspecified - hypochromic, microcytic ni - Hypokalemia ni - Leiomyoma of uterus, unspecified ni - Abnormal findings on diagnostic imaging of liver and biliary tract - dilated CBD ni Forms: - Medication Reconciliation Form ni - SBAR form ni Signatures: Dispatcher [employer] Darrin Paredes MD MD cha Mickail, Joel, PA PA jmm Jackson, Kandis [email or web address] Olinda Villegas, RN RN ld1 Corrections: (The following items were deleted from the chart) 14:52 12:53 ni [email or web address]
--- NOTE | 2022-07-17 12:59 | RAD REPORT ---
EXAM DESCRIPTION: CT - Chest For Pe Angio - 07/17/2022 12:48 pm CLINICAL HISTORY: cp COMPARISON: No comparisons TECHNIQUE: Dynamically enhanced axial 3 mm thick images of the chest were obtained during administra tion of <100> mL Isovue 370 IV contrast. Coronal and oblique reconstruction images were generated and reviewed. Exam utilizes a protocol for optimal evaluation of pulmonary arterial tree. Maximum intensity projections 3D imaging was utilized All CT scans are performed using dose optimization technique as appropriate and may include automated exposure control or mA/KV adjustment according to patient size. FINDINGS: Chest Wall: No suspicious thyroid nodules or pathologic lymphadenopathy. Lungs: No acute abnormality. Pleura: No significant effusions or pneumothorax. Mediastinum/ivelisse: No pathologic lymphadenopathy. Pulmonary arteries/Aorta: No filling defect identified. No aortic aneurysm. Heart: No significant pericardial effusion. Normal heart size. Upper abdomen: No acute abnormality. Bones: No acute abnormality. IMPRESSION: Negative for pulmonary embolism. No acute findings within the chest.
--- NOTE | 2022-07-17 13:02 | RAD REPORT ---
EXAM DESCRIPTION: CTAbdomen Pelvis W Contrast - 07/17/2022 12:48 pm CLINICAL HISTORY: Abdominal pain, acute, nonlocalized COMPARISON: Abdomen Pelvis W Contrast dated 06/25/2020; Abdomen Pelvis W Contrast dated 07/30/2016 TECHNIQUE: CT of the abdomen and pelvis was performed with IV contrast. All CT scans are performed using dose optimization technique as appropriate and may include automated exposure control or mA/KV adjustment according to patient size. FINDINGS: Lower chest: No acute abnormality. Liver: No acute abnormality or suspicious lesions. Biliary: No biliary ductal dilatation. Stomach: No significant focal abnormality. Duodenum: No significant focal abnormality. Pancreas: No significant abnormality. Spleen: No significant abnormality. Adrenal: Adrenal thickening without mass. Kidney/ureter: No hydronephrosis. Punctate stone in the right kidney. Retroperitoneum: No retroperitoneal adenopathy. Vascular: No aneurysm. Bowel: No significant focal abnormality. No appendix identified. No secondary signs of acute appendic itis. Peritoneum: Small volume of pleural free fluid which is likely physiologic. Bladder: Grossly unremarkable. Reproductive: Enlarged uterus with multiple uterine fibroids. Bones: No acute fracture. Other: n/a IMPRESSION: No acute intra-abdominal or pelvic finding. Enlarged fibroid uterus. Other incidental fi ndings as noted above.
--- NOTE | 2022-07-17 13:18 | RAD REPORT ---
EXAM DESCRIPTION: US - Abdomen Exam Limited - 07/17/2022 1:05 pm CLINICAL HISTORY: ABD PAIN COMPARISON: Abdomen Pelvis W Contrast dated 07/17/2022 FINDINGS: The gallbladder demonstrates no gallstones. No pericholecystic fluid or gallbladder wall t hickening. The common bile duct is mildly dilated measuring 6 mm. The liver demonstrates no findings of intrahepatic biliary dilatation. IMPRESSION: Mildly dilated common bile duct measuring 6 millimeters. Negative for cholelithiasis or acute cholecystitis, however.
[2022-07-17] MEDS ORDERED: ACETAMINOPHEN 500 MG TAB PO PRN (13:45)
[2022-07-17] MEDS ORDERED: ONDANSETRON 4 MG/2 ML VIAL IV PRN (13:45)
[2022-07-17] MEDS ORDERED: NS KCL 20MEQ 1,000 ML IV ONE (13:47)
[2022-07-17] MEDS ORDERED: MORPHINE 2 MG/ML SYR IV PRN (13:50)
--- NOTE | 2022-07-17 14:27 | P.HP ---
Certification for Inpatient Patient admitted to: Observation With expected LOS: <2 Midnights Patient will require the following post-hospital care: None Practitioner: I am a practitioner with admitting privileges, knowledge of patient current condition, hospital course, and medical plan of care. Services: Services provided to patient in accordance with Admission requirements found in Title 42 Section 412.3 of the Code of Federal Regulations Patient History Date of Service: 07/17/22 Reason for admission: Chest pain, RUQ pain, DELFINA History of Present Illness: This is a 57 year old female with PMH of iron deficiency anemia who presents to the ER via EMS with c/o right upper quadrant pain, chest pain. Patient states that her symptoms began 4-5 days ago. It started with her having chest pain at rest. She reported a 2/10 pain non-radiating. She also started having right upper quadrant 10/10 pain radiating to her back. She describes the pain as it hurts a lot. She took 800 mg of Ibuprofen, which decreased the pain down to 7/10. She reports eating and laying down worsens the pain. Additional associated symptoms of decreased appetite, nausea, shortness of breath and chest pain were reported. During her lab work up in the ER, she was found to have a hemoglobin of 5.9. She denies any black or tarry stools or any episodes of bleeding. Chest x-ray was negative for any acute findings. CT of abdomen and pelvis was negative except for an enlarged fibroid uterus. Patient will be admitted for observation under the care of Dr. Boyd. She will received blood transfusion. Allergies NK Allergy (Uncoded 06/30/15 01:39) Unknown NKDA Allergy (Uncoded 08/28/15 22:23) Unknown No Known Allerg Allergy (Uncoded 03/03/17 06:56) Unknown No Known Allergies Allergy (Uncoded 04/16/17 17:02) Unknown Home medications list reviewed: Yes (none) Home Medications: NK [No Home Meds] 07/17/22 - Past Medical/Surgical History Diabetic: No -: DELFINA Past Surgical History: Reviewed- Non-Contributory - Family History Family History: Reviewed- Non-Contributory - Social History Smoking Status: Current every day smoker Smoking therapy provided: Yes Patient receptive to therapy: Yes Alcohol use: No CD- Drugs: No Caffeine use: No Place of Residence: Home Review of Systems 10-point ROS is otherwise unremarkable General: Weakness Respiratory: Shortness of Breath Cardiovascular: Chest Pain Gastrointestinal: Nausea, Abdominal Pain, As per HPI (RUQ pain) Physical Examination - Vital Signs Temperature: 97.3 F Blood Pressure: 155/92 Pulse: 75 Respirations: 18 Pulse Ox (%): 100 - Physical Exam General: Alert, In no apparent distress, Oriented x3 HEENT: Atraumatic, Normocephalic Neck: Supple, 2+ carotid pulse no bruit Respiratory: Clear to auscultation bilaterally, Normal air movement Cardiovascular: No edema, Normal pulses Capillary refill: <2 Seconds Gastrointestinal: Normal bowel sounds, Tenderness (RUQ tenderness, radiating to back) Musculoskeletal: No clubbing, No swelling Integumentary: No rashes, No breakdown Neurological: Normal speech, Normal strength at 5/5 x4 extr Lymphatics: No axilla or inguinal lymphadenopathy - Studies Laboratory Data (last 24 hrs) 07/17/22 11:33: Sodium 143, Potassium 3.4 L, BUN 9, Creatinine 0.63, Glucose 94, Total Bilirubin 0.2, AST 8 L, ALT 13, Alkaline Phosphatase 61, Lipase 117 07/17/22 11:33: WBC 5.80, Hgb 5.9 L*, Hct 20.1 L*, Plt Count 103 L Assessment and Plan - Problems (Diagnosis) (1) DELFINA (iron deficiency anemia) Current Visit: Yes Status: Chronic (2) Chest pain Current Visit: Yes Status: Acute (3) RUQ abdominal pain Current Visit: Yes Status: Acute - Plan Assessment DELFINA Chest pain RUQ abdominal pain Plan Iron Deficiency Anemia Hb.9, Hct: 20.1, MCV: 55.5, MCH: 16.3 Iron: 11, TIBC: 463, Ferritin 2.4 -Transfuse 2 units of PRBCs -Recheck H&H per facility protocol -Start Ferrous sulfate 325 mg -CBC daily Chest pain -EKG shows sinus rhythm - CXR-No acute intrathoracic process suspected -CT chest- Negative for pulmonary embolism. No acute findings within the chest -Troponin negative -Stable -Telemetry RUQ abdominal pain -RUQ tenderness -CT ABD/Pelvis- No acute intra-abdominal or pelvic finding. Enlarged fibroid uterus/ -Peritoneum: Small volume of pleural free fluid which is likely physiologic -Stable -Clear liquid, advance diet at tolerated -Zofran for nausea/vomiting PPX- SCDs, Protonix Discharge Plan: Home Plan to discharge in: 48 Hours - Advance Directives Does patient have a Living Will: No Does patient have a Durable POA for Healthcare: No - Code Status/Comfort Care Code Status Assessed: Yes (Full code) Critical Care: No Time Spent Managing Pts Care (In Minutes): 55
[2022-07-17] MEDS ORDERED: DIPHENHYDRAMINE 50 MG/ML VIAL ONE (14:46)
[2022-07-17] MEDS ORDERED: ACETAMINOPHEN 325 MG TABLET ONE (14:46)
[2022-07-17] MEDS ORDERED: NA CHLORIDE 0.9% 500 ML ONE (14:47)
--- NOTE | 2022-07-17 15:19 | RAD REPORT ---
EXAM DESCRIPTION: MRI - Cholangiogram - 07/17/2022 3:06 pm CLINICAL HISTORY: abdominal pain COMPARISON: Abdomen Exam Limited dated 07/17/2022; Abdomen Pelvis W Contrast dated 07/17/2022; Ang io Aorta For Dissection dated 09/23/2019; Abdomen Exam Limited dated 06/25/2020 FINDINGS: Three-dimensional MRCP was performed using maximum intensity projection reconstruction on the same work station. No intrahepatic biliary tree dilatation is seen. Mild dilatation of the common bile duct which measur es 8 millimeters at the level of the pancreatic head. No filling defect identified within the common bile duct to suggest choledocholithiasis. No obstructing mass identified. The pancreatic duct is not pathologically dilated. The gallbladder is unremarkable. Limited T2 sequences through the abdomen demonstrates no bulky adenopathy, significant free fluid or abscess. IMPRESSION: Mild common bile duct dilatation at the level of the pancreatic head measuring 8 millime ters. No evidence of obstructing stone or mass. In the absence of abnormal LFTs, this may be of littl e clinical significance.
[2022-07-17 16:12] VITALS: BMI 26.9
[2022-07-17 16:20] VITALS: O2SAT 100
[2022-07-17] MEDS: PANTOPRAZOLE 40MG TABLET PO SCH (17:08)
[2022-07-17] MEDS ORDERED: INFLUENZA VACCINE (for 6+ mo) 0.5 ML DOSE IMVAC ONE (18:00)
[2022-07-17] MEDS ORDERED: NA CHLORIDE 0.9% 250 ML ONE (22:00)
[2022-07-17] MEDS: FERROUS SULFATE 325 MG TAB PO SCH (22:00)
[2022-07-18 06:50] LABS: Potassium 3.5 mmol/L (3.5-5.1)
[2022-07-18 06:56] LABS: Absolute Lymphocytes (CBC) 1.4 K/uL (0.7-4.9); Hematocrit 22.6 % (36.0-45.0); Lymphocytes % 22.4 % (15.3-44.8); MCV 60.9 fL (80-100)
[2022-07-18] MEDS: PANTOPRAZOLE 40MG TABLET PO SCH ×2 (07:58→16:30)
[2022-07-18] MEDS: FERROUS SULFATE 325 MG TAB PO SCH (07:58)
[2022-07-18 08:01] LABS: Anisocytosis 3+; Blood Morphology Comment NOTED (NOT SEEN); Hypochromasia 2+; Platelet Estimate DECR; Rouleau NOTED; White Blood Cell Scan OK (OK)
[2022-07-18] MEDS ORDERED: NA CHLORIDE 0.9% 250 ML ONE (10:20)
[2022-07-18] MEDS ORDERED: SOD FERRIC GLUC COMPLX/SUCROSE 125 MG in NA CHLORIDE 0.9% 100 ML IV SCH (15:00)
[2022-07-18 15:55] LABS: Hematocrit 24.8 % (36.0-45.0)
--- NOTE | 2022-07-18 16:37 | P.DS ---
Discharge Date: 07/18/22 Disposition: ROUTINE DISCHARGE Discharge Condition: GOOD Reason for Admission: Chest pain, RUQ pain, DELFINA Brief History of Present Illness: This is a 57 year old female with PMH of iron deficiency anemia who presents to the ER via EMS with c/o right upper quadrant pain, chest pain. Patient states that her symptoms began 4-5 days ago. It started with her having chest pain at rest. She reported a 2/10 pain non-radiating. She also started having right upper quadrant 10/10 pain radiating to her back. She describes the pain as it hurts a lot. She took 800 mg of Ibuprofen, which decreased the pain down to 7/10. She reports eating and laying down worsens the pain. Additional associated symptoms of decreased appetite, nausea, shortness of breath and chest pain were reported. During her lab work up in the ER, she was found to have a hemoglobin of 5.9. She denies any black or tarry stools or any episodes of bleeding. Chest x-ray was negative for any acute findings. CT of abdomen and pelvis was negative except for an enlarged fibroid uterus. Patient will be admitted for observation under the care of Dr. Boyd. She will received blood transfusion. Hospital Course: Patient with uterine fibroids. Patient with heavy menses. Patient needs to follow-up with [facility]. We will go ahead and also supplement iron prior to discharge. Hemoglobin is up to 8. Clinically doing well and stable for discharge home with outpatient follow-up. Advised her to get a colonoscopy as well as Pap smear and mammogram. She will need hematology follow-up as well. Patient will be discharged with further outpatient follow-up with PCP. Vital Signs/Physical Exam: Temp Pulse Resp BP Pulse Ox 98.5 F 80 14 140/58 L 96 07/18/22 12:00 07/18/22 12:00 07/18/22 12:00 07/18/22 12:00 07/18/22 12:00 General: Alert, In no apparent distress, Oriented x3 Laboratory Data at Discharge: WBC 6.20 K/uL (4.3-10.9) 07/18/22 06:14 Hgb 8.0 g/dL (12.0-15.0) L D 07/18/22 15:32 Hct 24.8 % (36.0-45.0) L 07/18/22 15:32 Plt Count 93 K/uL (152-406) L 07/18/22 06:14 Sodium 142 mmol/L (136-145) 07/18/22 06:14 Potassium 3.5 mmol/L (3.5-5.1) 07/18/22 06:14 BUN 5 mg/dL (7-18) L 07/18/22 06:14 Creatinine 0.58 mg/dL (0.55-1.02) 07/18/22 06:14 Glucose 91 mg/dL (74-106) 07/18/22 06:14 Total Bilirubin 0.2 mg/dL (0.2-1.0) 07/17/22 11:33 AST 8 U/L (15-37) L 07/17/22 11:33 ALT 13 U/L (13-56) 07/17/22 11:33 Alkaline Phosphatase 61 U/L (45-117) 07/17/22 11:33 Lipase 117 U/L (73-393) 07/17/22 11:33 Home Medications: Ascorbic Acid [Vitamin C] 1,000 mg PO DAILY 30 Days #30 tab 07/18/22 Ferrous Fumarate [Hemocyte] 324 mg PO TID #90 tab 07/18/22 New Medications: Ferrous Fumarate [Hemocyte] 324 mg PO TID #90 tab Ascorbic Acid [Vitamin C] 1,000 mg PO DAILY 30 Days #30 tab Physician Discharge Instructions: -DC IV and DC home -Follow-up with PCP in 1 to 2 weeks -Follow-up with Gynecology, Dr. Pruett, in 1 to 2 weeks -Please call Dr. Boyd at [phone] if any questions regarding hospital stay -Please call nursing station at [phone] if any nursing or medication questions -Return to the emergency room if symptoms worsen Diet: Regular Activity: Fall precautions Followup: Leni Pruett MD [ACTIVE - CAN ADMIT] - 1-2 Weeks NONE,NONE [Primary Care Provider] - Time spent managing pt's care (in minutes): 35
[2022-07-18 16:53] VITALS: BP 153/69; TEMP 98.1
--- NOTE | 2022-07-19 17:51 | EKG ---
Test Date: 2022-07-17 Test Time: 13:15:53 Career Technical Education Teacher: HELLEN MEASUREMENT RESULTS: Intervals: Rate: 71 [place]: 168 QRSD: 94 QT: 436 QTc: 473 [place]: P: 53 [place]: 168 QRS: -18 T: 78 INTERPRETIVE STATEMENTS: Normal sinus rhythm Minimal voltage criteria for LVH, may be normal variant Borderline ECG Compared to ECG 12/25/2020 00:04:54 Sinus tachycardia no longer present Early repolarization no longer present Electronically Signed On 07-19-22 17:46:16 ACID PAINTER by Neno Laurent
--- NOTE | 2022-07-19 17:51 | EKG ---
Test Date: 2022-07-17 Test Time: 13:18:29 Manager Front: HELLEN MEASUREMENT RESULTS: Intervals: Rate: 73 [place]: 166 QRSD: 94 QT: 432 QTc: 475 [place]: P: 67 [place]: 166 QRS: -18 T: 75 INTERPRETIVE STATEMENTS: Normal sinus rhythm Minimal voltage criteria for LVH, may be normal variant Borderline ECG Compared to ECG 07/17/2022 13:15:53 No significant changes Electronically Signed On 07-19-22 17:46:14 MANAGER MARKET INTELLIGENCE by Neno Laurent
== END 2022-07-18 17:33 | disposition home or self-care (01) ==
LOC: ER 11:17 → ERHOLD 13:44 → 2ND 15:40
PROVIDERS: ADMIT Hospitalist; ATTEND Hospitalist
PROC: 30233N1 Transfusion of Nonautologous Red Blood Cells into Peripheral Vein, Percutaneous Approach (ICD-10-PCS; principal; 2022-07-17)
DX: D50.9 Iron deficiency anemia, unspecified (principal); R10.11 Right upper quadrant pain; N93.8 Other specified abnormal uterine and vaginal bleeding; D25.9 Leiomyoma of uterus, unspecified; R93.2 Abnormal findings on diagnostic imaging of liver and biliary tract; E87.6 Hypokalemia
CPT/HCPCS: 36415; 36430; 71045; 71275; 74177; 74181; 76705; 80048; 80053; 81003; 81015; 82607; 82728; 82746; 83540; 83690; 84466; 84484; 85014; 85018; 85025; 85044; 86850; 86900; 86901; 93005; 96374; 96375; 99285; C9113; G0378; J1170; J1200; J2405; J2916; J3480; J7030; J7040; J7050; P9016; Q9967

== ENCOUNTER 2022-08-14 00:29 | Emergency (ER) | payer OTHER, SELFPAY ==
[2022-08-14] MEDS ORDERED: MAGNES/ALUMIN/SIMET 30ML UCUP ONE (01:07)
[2022-08-14] MEDS ORDERED: LIDOCAINE VISCOUS 2% SOLN 15 ML UDC ONE (01:07)
[2022-08-14 02:06] LABS: Absolute Lymphocytes (CBC) 1.7 K/uL (0.7-4.9); Hematocrit 27.7 % (36.0-45.0); Lymphocytes % 25.9 % (15.3-44.8); MCV 63.7 fL (80-100); MPV 8.9 fL (7.6-11.3); RBC Red Blood Cell Count 4.35 M/uL (3.86-4.86)
[2022-08-14 02:18] LABS: Potassium 3.6 mmol/L (3.5-5.1); Troponin High Sensitivity 16.4 pg/mL (<58.9)
[2022-08-14 03:32] LABS: Anisocytosis 3+; Blood Morphology Comment NOTED (NOT SEEN); Hypochromasia 1+; Platelet Estimate ADEQ; White Blood Cell Scan OK (OK)
--- NOTE | 2022-08-14 04:19 | EDPHYS ---
Physician Documentation [facility] Name: Isis Ledezma Age: 57 yrs Sex: Female : 1965 Arrival Date: 08/14/2022 Time: 00:35 Bed 15 Private MD: ED Physician Juan J Nieves HPI: 08/14 00:52 This 57 yrs old Black Female presents to ER via EMS with complaints of Chest pain. rn 00:52 The patient or guardian reports chest pain that is located primarily in the substernal rn area. Onset: just prior to arrival. The pain radiates to back. Associated signs and symptoms: Pertinent negatives: abdominal pain, cough, diaphoresis, lower extremity swelling, near syncope, palpitations, shortness of breath, syncope, vomiting. The chest pain is described as sharp, stabbing. Duration: The patient or guardian reports multiple episodes, that are intermittent. Modifying factors: The symptoms are alleviated by nothing. the symptoms are aggravated by deep breath. Severity of pain: At its worst the pain was mild in the emergency department the pain is unchanged. The patient has experienced a previous episode. The patient has been recently been admitted at [facility]. Patient reports substernal chest pain that began prior to arrival, radiates to back, worse when he takes a deep breath, without radiation. Patient reports admission to the hospital 1 month ago for similar chest pain resolved after GI cocktail and diagnosed with anemia. patient denies cough or hemoptysis, denies chest trauma.. Historical: - Allergies: 00:39 No Known Allergies; as6 - Home Meds: 00:39 None [Active]; as6 - PMHx: 00:39 Anemia; as6 - PSHx: 00:39 Appendectomy; section; as6 - Immunization history:: Client reports receiving the 2nd dose of the Covid vaccine, Flu vaccine is not up to date. - Social history:: Smoking status: Patient reports the use of cigarette tobacco products, smokes one-half pack cigarettes per day. - Family history:: not pertinent. - Hospitalizations: : The patient was recently seen at [facility]. ROS: 00:52 Constitutional: Negative for fever, chills, and weight loss, Eyes: Negative for injury, rn pain, redness, and discharge, Neck: Negative for injury, pain, and swelling, Cardiovascular: + for chest pain Respiratory: Negative for shortness of breath, cough, wheezing Abdomen/GI: Negative for abdominal pain, nausea, vomiting, diarrhea, and constipation, MS/Extremity: Negative for injury and deformity, Skin: Negative for injury, rash, and discoloration, Neuro: Negative for headache, weakness, numbness, tingling, and seizure. Exam: 00:52 Constitutional: This is a well developed, well nourished patient who is awake, alert, rn and in no acute distress. Smiling and laughing. Head/Face: Normocephalic, atraumatic. Chest/axilla: Normal chest wall appearance and motion. Nontender with no deformity. Cardiovascular: Regular rate and rhythm. No pulse deficits. Respiratory: No increased work of breathing, no retractions or nasal flaring. Abdomen/GI: soft, non-tender, neg stewart. Skin: Warm, dry MS/ Extremity: Pulses equal, no cyanosis. Neuro: Awake and alert, GCS 15 00:57 ECG was reviewed by the Attending Physician. rn Vital Signs: 00:38 BP 162 / 77; Pulse 72; Resp 17 S; Temp 98.9(O); Pulse Ox 100% on R/A; Weight 75.3 kg as6 (R); Height 5 ft. 4 in. (162.56 cm) (R); Pain 9/10; 01:38 BP 158 / 83; Pulse 67; Resp 12 S; Pulse Ox 100% on R/A; as6 03:24 BP 160 / 95; Pulse 82; Resp 23 S; Pulse Ox 100% on R/A; as6 04:40 BP 165 / 87; Pulse 67; Resp 15 S; Pulse Ox 98% on R/A; as6 00:38 Body Mass Index 28.49 (75.30 kg, 162.56 cm) as6 MDM: 00:40 Patient medically screened. rn 00:52 Differential diagnosis: acute myocardial infarction, acute pericarditis, anxiety, rn coronary artery disease costochondritis, esophagitis, gastritis, gastroesophageal reflux disease (GERD), pericarditis, pneumonia, pneumothorax, pulmonary embolus. 00:58 External Records Reviewed: Inpatient record: INpatient record reviewed from last rn transplant to this hospital. Shows admission for chest pain and abd pain, concluded anemia was cause. . 03:39 HEART Score: History: Slightly Suspicious (0), ECG: Normal (0), Age: > 45 and < 65 rn years (1), Risk Factors: No Risk Factors Known (0), Troponin: < or = 1 x Normal Limit (0), Total Score = 1. Data reviewed: vital signs, nurses notes, lab test result(s), EKG, radiologic studies, CT scan, and as a result, I will discharge patient. Counseling: I had a detailed discussion with the patient and/or guardian regarding: the historical points, exam findings, and any diagnostic results supporting the discharge/admit diagnosis, lab results, radiology results, the need for outpatient follow up, to return to the emergency department if symptoms worsen or persist or if there are any questions or concerns that arise at home. Response to treatment: the patient's symptoms have markedly improved after treatment, Pain markedly improved after GI cocktail. , and as a result, I will discharge patient. 04:16 Special discussion: Based on the patient's history, exam, and Dx evaluation, there is rn no indication for emergent intervention or inpatient Tx. It is understood by the patient/guardian that if the Sx's persist or worsen they need to return immediately for re-evaluation. I discussed with the patient/guardian in detail that at this point there is no indication for admission to the hospital. It is understood, however, that if the symptoms persist or worsen the patient needs to return immediately for re-evaluation. ED course: Trop neg x 2, cxr neg, no acute findings in blood or imaging. IMproved after GI cocktail just as before. CT PE protocol neg for PE but does actually show CAD, discussed this with patient and need to f/u with cardiology. Today's pain does not seem cardiac in nature and trop neg x 2 with normal ECG. . 08/14 00:50 Order name: Basic Metabolic Panel; Complete Time: 02:55 rn 08/14 00:50 Order name: CBC with Diff; Complete Time: 03:35 rn 08/14 00:50 Order name: NT PRO-BNP; Complete Time: 02:55 rn 08/14 00:50 Order name: Troponin HS; Complete Time: 02:55 rn 08/14 02:12 Order name: CBC Smear Scan; Complete Time: 03:35 EDMS 08/14 03:35 Order name: Troponin High Sensitivity; Complete Time: 04:16 rn 08/14 00:50 Order name: XRAY Chest (1 view) rn 08/14 00:50 Order name: EKG; Complete Time: 00:51 rn 08/14 00:50 Order name: Cardiac monitoring; Complete Time: 00:58 rn 08/14 00:50 Order name: EKG - Nurse/Tech; Complete Time: 00:58 rn 08/14 00:50 Order name: IV Saline Lock; Complete Time: 00:58 rn 08/14 00:50 Order name: Labs collected and sent; Complete Time: 00:58 rn 08/14 00:50 Order name: CT Chest For PE Angio rn 08/14 00:50 Order name: O2 Per Protocol; Complete Time: 00:58 rn 08/14 00:50 Order name: O2 Sat Monitoring; Complete Time: 00:58 rn 08/14 01:25 Order name: Misc. Order: recollect all labs; Complete Time: 01:38 bb EC:57 Rate is 70 beats/min. Rhythm is regular. QRS Harmans is Normal. MD interval is normal. QRS rn interval is normal. QT interval is normal. No Q waves. T waves are Normal. No ST changes noted. Clinical impression: Normal ECG. Interpreted by me. Reviewed by me. Administered Medications: 01:07 Drug: GI Cocktail without - (Maalox Suspension 30 ml, Lidocaine Liquid 2 % 15 as6 ml) Route: PO; 04:40 Follow up: Response: No adverse reaction as6 Disposition Summary: 08/14/22 04:18 Discharge Ordered Location: Home rn Problem: new rn Symptoms: have improved rn Condition: Stable rn Diagnosis - Chest pain, unspecified rn - Gastro-esophageal reflux disease without esophagitis rn Followup: rn - With: Private Physician - When: As needed - Reason: Recheck today's complaints, Re-evaluation by your physician Discharge Instructions: - Discharge Summary Sheet rn - Nonspecific Chest Pain, Adult rn - Gastroesophageal Reflux Disease, Adult rn - Pain Without a Known Cause rn Forms: - Medication Reconciliation Form rn - Thank You Letter rn - Antibiotic rn discharge - Prescription Opioid Use rn Prescriptions: - Protonix 40 mg Oral Tablet - take 1 tablet by ORAL route once daily; 30 tablet; Refills: 0, Product rn Selection Permitted Signatures: Dispatcher [employer] Sarah Asif RN RN bb Juan J Nieves MD MD rn Slawson, Ashby, RN RN as6 Corrections: (The following items were deleted from the chart) 00:40 00:39 Allergies: Aspirin; as6 as6
--- NOTE | 2022-08-14 04:19 | ER ---
Nurse's Notes [facility] Name: Isis Ledezma Age: 57 yrs Sex: Female : 1965 Arrival Date: 08/14/2022 Time: 00:35 Bed 15 Private MD: Diagnosis: Chest pain, unspecified;Gastro-esophageal reflux disease without esophagitis Presentation: 08/14 00:38 Chief complaint: EMS states: called out for sternal chest pain that radiates to the as6 back that started approx 1 hr lighter captain. Coronavirus screen: At this time, the client does not indicate any symptoms associated with coronavirus-19. Ebola Screen: No symptoms or risks identified at this time. Initial Sepsis Screen: Does the patient meet any 2 criteria? No. Patient's initial sepsis screen is negative. Does the patient have a suspected source of infection? No. Patient's initial sepsis screen is negative. Risk Assessment: Do you want to hurt yourself or someone else? Patient reports no desire to harm self or others. Onset of symptoms was August 13, 2022. 00:38 Method Of Arrival: EMS: [facility] as6 00:38 Acuity: TAMICA 3 as6 Historical: - Allergies: 00:39 No Known Allergies; as6 - Home Meds: 00:39 None [Active]; as6 - PMHx: 00:39 Anemia; as6 - PSHx: 00:39 Appendectomy; section; as6 - Immunization history:: Client reports receiving the 2nd dose of the Covid vaccine, Flu vaccine is not up to date. - Social history:: Smoking status: Patient reports the use of cigarette tobacco products, smokes one-half pack cigarettes per day. - Family history:: not pertinent. - Hospitalizations: : The patient was recently seen at [facility]. Screenin:41 [facility] ED Fall Risk Assessment (Adult) Score/Fall Risk Level 0 - 2 = Low Risk. Abuse as6 screen: Denies threats or abuse. Denies injuries from another. Nutritional screening: No deficits noted. Tuberculosis screening: No symptoms or risk factors identified. Assessment: 00:40 General: Appears uncomfortable, Behavior is calm, cooperative. Pain: Complains of pain as6 in chest Pain radiates to back Quality of pain is described as sharp, Pain began 1 hour ago. Neuro: Level of Consciousness is awake, alert, obeys commands, Oriented to person, place, time, situation. Cardiovascular: Reports chest pain, Capillary refill < 3 seconds Patient's skin is warm and dry. Respiratory: Respiratory effort is even, unlabored, Respiratory pattern is regular, symmetrical, Denies shortness of breath. 01:38 Reassessment: Patient and/or family updated on plan of care and expected duration. Pain as6 level reassessed. Patient is alert, oriented x 3, equal unlabored respirations, skin warm/dry/pink. Patient states feeling better. Vital Signs: 00:38 BP 162 / 77; Pulse 72; Resp 17 S; Temp 98.9(O); Pulse Ox 100% on R/A; Weight 75.3 kg as6 (R); Height 5 ft. 4 in. (162.56 cm) (R); Pain 9/10; 01:38 BP 158 / 83; Pulse 67; Resp 12 S; Pulse Ox 100% on R/A; as6 03:24 BP 160 / 95; Pulse 82; Resp 23 S; Pulse Ox 100% on R/A; as6 04:40 BP 165 / 87; Pulse 67; Resp 15 S; Pulse Ox 98% on R/A; as6 00:38 Body Mass Index 28.49 (75.30 kg, 162.56 cm) as6 ED Course: 00:35 Patient arrived in ED. mw2 00:38 Pete Wilson, GEE is Primary Nurse. as6 00:39 Triage completed. as6 00:40 Juan J Nieves MD is Attending Physician. rn 00:40 Arm band placed on. as6 00:40 Placed in gown. Bed in low position. Call light in reach. Side rails up X2. as6 00:58 Inserted saline lock: 20 gauge in right antecubital area, using aseptic technique. as6 Blood collected. 00:58 Troponin HS Sent. as6 00:58 NT PRO-BNP Sent. as6 00:59 CBC with Diff Sent. as6 00:59 Basic Metabolic Panel Sent. as6 01:06 XRAY Chest (1 view) In Process Unspecified. EDMS 03:12 CT Chest For PE Angio In Process Unspecified. EDMS 04:40 No provider procedures requiring assistance completed. as6 04:46 IV discontinued, intact, bleeding controlled, No redness/swelling at site. Pressure as6 dressing applied. Administered Medications: 01:07 Drug: GI Cocktail without - (Maalox Suspension 30 ml, Lidocaine Liquid 2 % 15 as6 ml) Route: PO; 04:40 Follow up: Response: No adverse reaction as6 Medication: 00:41 VIS not applicable for this client. as6 Outcome: 04:18 Discharge ordered by . rn 04:40 Discharged to home ambulatory. as6 04:40 Condition: stable 04:46 Discharge instructions given to patient, Instructed on discharge instructions, follow as6 up and referral plans. medication usage, Demonstrated understanding of instructions, follow-up care, medications, Prescriptions given X 1. 04:46 Patient left the ED. as6 Signatures: Dispatcher [employer] EDMS Juan J Nieves MD MD rn Gatti, MyKena 2 Pete Wilson RN RN as6 Corrections: (The following items were deleted from the chart) 00:40 00:39 Allergies: Aspirin; as6 as6
[2022-08-14 05:26] VITALS: TEMP 98.9
[2022-08-14 05:29] VITALS: BP 165/87; O2SAT 98
--- NOTE | 2022-08-14 11:30 | RAD REPORT ---
EXAM DESCRIPTION: RAD - Chest Single View - 08/14/2022 1:04 am CLINICAL HISTORY: The patient is 57 years old and is Female; CHEST PAIN TECHNIQUE: Frontal view of the chest. COMPARISON: No relevant prior studies available. FINDINGS: LUNGS: Unremarkable. No consolidation. PLEURAL SPACE: Unremarkable. No pneumothorax. HEART: Unremarkable. No cardiomegaly. MEDIASTINUM: Unremarkable. BONES/JOINTS: Multilevel degenerative change of the spine is present. UPPER ABDOMEN: Unremarkable as visualized. IMPRESSION: No acute cardiopulmonary process. Electronically signed by: Marina Liu MD 08/14/2022 1:15 AM PBX INSPECTOR Due to temporary technical issues with the PACS/Fluency reporting system, reports are being signed by the in house radiologists without review as a courtesy to insure prompt reporting. The interpreting radiologist is fully responsible for the content of the report.
--- NOTE | 2022-08-14 11:33 | RAD REPORT ---
EXAM DESCRIPTION: CT - Chest For Pe Angio - 08/14/2022 6:41 am CLINICAL HISTORY: Chest pain COMPARISON: 07/17/2022 TECHNIQUE: CTA of the chest obtained following the uncomplicated intravenous administration of iodin ated contrast. 3-D/MIP reformatted images of the chest available for evaluation. This exam was perfor med according to our departmental dose-optimization program, which includes automated exposure contro l, adjustment of the mA and/or kV according to patient size and/or use of iterative reconstruction te chnique. FINDINGS: Chest: Pulmonary arteries: Contrast bolus is adequate.No filling defects identified in the pulmonary arterie s to suggest pulmonary embolus. Dilation of the main pulmonary artery. Thyroid: No abnormalities of the visualized thyroid. Great Vessels: Great vessels have normal anatomic configuration. Thoracic Aorta: Atherosclerotic calcification of thoracic aorta. Heart: Coronary artery atherosclerosis. No cardiomegaly. Lymph Nodes: No enlarged mediastinal lymph nodes identified. Esophagus: No abnormalities of the esophagus identified. Other: No additional findings. Lungs: No airspace opacities identified. Pleura: No pleural effusion or pneumothorax. Trachea/Airways: No abnormalities of the visualized trachea or airways. Bones: Multilevel endplate spondylosis. Upper Abdomen: Limited images of the upper abdomen demonstrate no definite abnormalities of visualize d portions of the liver, pancreas, spleen, adrenal glands, or kidneys. IMPRESSION: 1. No pulmonary embolus. 2. Coronary artery atherosclerosis. 3. Dilation of the main pulmonary artery. This can be seen with pulmonary arterial hypertension. Electronically signed by: Kamlesh Melgar 08/14/2022 3:18 AM PAPER MAKING MACHINE OPERATOR Due to temporary technical issues with the PACS/Fluency reporting system, reports are being signed by the in house radiologists without review as a courtesy to insure prompt reporting. The interpreting radiologist is fully responsible for the content of the report.
--- NOTE | 2022-08-14 12:25 | EKG ---
Test Date: 2022-08-14 Test Time: 00:49:14 Service Developer: MEASUREMENT RESULTS: Intervals: Rate: 70 CT: 164 QRSD: 98 QT: 438 QTc: 473 [place]: P: 60 CT: 164 QRS: -29 T: 69 INTERPRETIVE STATEMENTS: Normal sinus rhythm Normal ECG Compared to ECG 07/17/2022 13:18:29 Left ventricular hypertrophy no longer present Electronically Signed On 08-14-22 12:24:25 ENAMEL PULVERIZER by Neno Laurent
== END 2022-08-14 04:46 | disposition home or self-care (01) ==
LOC: ER 00:29
DX: K21.9 Gastro-esophageal reflux disease without esophagitis (principal); F17.210 Nicotine dependence, cigarettes, uncomplicated
CPT/HCPCS: 93005; 85025; 80048; 36415; 84484 ×2; 83880; 71275; 71045; Q9967; 99284

== ENCOUNTER 2023-01-20 15:04 | Inpatient (IN) | payer OTHER ==
[2023-01-20] MEDS ORDERED: NA CHLORIDE 0.9% 2,000 ML ONE (15:30)
[2023-01-20 15:51] LABS: Absolute Lymphocytes (CBC) 0.8 K/uL (0.7-4.9); Hematocrit 32.1 % (36.0-45.0); Lymphocytes % 8.2 % (15.3-44.8); MCV 60.4 fL (80-100); RBC Red Blood Cell Count 5.32 M/uL (3.86-4.86)
[2023-01-20 16:04] LABS: SARS-CoV-2 Antigen Rapid Res Negative (Negative)
[2023-01-20 16:06] LABS: Albumin 3.3 g/dL (3.4-5.0); Bilirubin Total 0.8 mg/dL (0.2-1.0); Protein, Total 7.8 g/dL (6.4-8.2)
[2023-01-20] MEDS ORDERED: IBUPROFEN 400 MG TAB ONE (16:09)
[2023-01-20 16:12] LABS: Potassium 2.4 mEq/L (3.5-5.1)
[2023-01-20 16:25] LABS: Protime INR 1.4
[2023-01-20] MEDS ORDERED: POTASSIUM 25 MEQ EFFERV TAB ONE (16:29)
[2023-01-20] MEDS ORDERED: KCL 20 MEQ/100 mL IVPB 200 ML IV ONE (16:29)
--- NOTE | 2023-01-20 16:33 | RAD REPORT ---
EXAM DESCRIPTION: Bell Single View01/20/2023 4:22 pm CLINICAL HISTORY: Abdominal pain and vomiting COMPARISON: July 2022 FINDINGS: The lungs appear clear of acute infiltrate. The heart is borderline enlarged IMPRESSION: No acute abnormalities displayed
[2023-01-20] MEDS ORDERED: NA CHLORIDE 0.9% 250 ML ONE (18:41)
--- NOTE | 2023-01-20 20:30 | ER ---
Nurse's Notes [facility] Name: Isis Ledezma Age: 57 yrs Sex: Female : 1965 Arrival Date: 01/20/2023 Time: 15:04 Bed 5 Private MD: Diagnosis: Fever, unspecified;Dehydration;Hypokalemia;Iron deficiency anemia, unspecified;UTI/ Urinary tract infection, site not specified Presentation: 01/20 15:09 Chief complaint: EMS states: N/V/D, body aches, headache, and generalized weakness x 2 hb days. T 102.3. 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 Coronavirus screen: Client presents with at least one sign or symptom that may indicate coronavirus-19. Standard/surgical mask placed on the client. Provider contacted for isolation considerations. Ebola Screen: No symptoms or risks identified at this time. Initial Sepsis Screen: Does the patient meet any 2 criteria? No. Patient's initial sepsis screen is negative. Does the patient have a suspected source of infection? No. Patient's initial sepsis screen is negative. Risk Assessment: Do you want to hurt yourself or someone else? Patient reports no desire to harm self or others. Onset of symptoms was January 19, 2023. Care prior to arrival: Medication(s) given: Tylenol, 1000 mg. 15:09 Method Of Arrival: EMS: [facility] 15:09 Acuity: TAMICA 3 hb Triage Assessment: 15:11 General: Appears in no apparent distress. ill, Behavior is calm, cooperative. Pain: hb Pain currently is 8 out of 10 on a pain scale. EENT: No signs and/or symptoms were reported regarding the EENT system. Neuro: Level of Consciousness is awake, alert, obeys commands, Oriented to person, place, time, situation, Reports headache. Cardiovascular: Patient's skin is warm and dry. Respiratory: Respiratory effort is even, unlabored, Respiratory pattern is regular, symmetrical. GI: Reports diarrhea, nausea, vomiting. : No signs and/or symptoms were reported regarding the genitourinary system. Derm: Skin is pink, warm \T\ dry. Musculoskeletal: Reports body aches, generalized weakness. Historical: - Allergies: 15:11 No Known Allergies; hb - Home Meds: 15:11 None [Active]; hb - PMHx: 15:11 Anemia; hb - PSHx: 15:11 section; Appendectomy; hb - Immunization history:: Adult Immunizations up to date. - Social history:: Smoking status: Patient denies any tobacco usage or history of. Screenin:12 [facility] ED Fall Risk Assessment (Adult) Score/Fall Risk Level 0 - 2 = Low Risk hb Oriented to surroundings, Maintained a safe environment. Abuse screen: Denies threats or abuse. Denies injuries from another. Nutritional screening: No deficits noted. Tuberculosis screening: No symptoms or risk factors identified. Assessment: 15:12 General: See triage assessment. hb 16:07 Reassessment: Spoke to Daughter Rocio [phone] and updated on POC as requested hb by patient. 16:59 Reassessment: Patient appears in no apparent distress at this time. Patient and/or hb family updated on plan of care and expected duration. Pain level reassessed. Patient is alert, oriented x 3, equal unlabored respirations, skin warm/dry/pink. 18:36 Reassessment: Patient appears in no apparent distress at this time. Patient and/or hb family updated on plan of care and expected duration. Pain level reassessed. Patient is alert, oriented x 3, equal unlabored respirations, skin warm/dry/pink. Vital Signs: 15:09 BP 147 / 71; Pulse 96; Resp 18; Temp 102.3(O); Pulse Ox 100% on R/A; Weight 72.57 kg; hb Height 5 ft. 6 in. ; Pain 8/10; 16:45 BP 132 / 81; Pulse 81; Resp 16; Temp 99.5(O); Pulse Ox 99% on R/A; hb 18:36 BP 108 / 64; Pulse 66; Resp 18; Pulse Ox 99% on R/A; hb 20:15 BP 113 / 89; Pulse 74; Resp 20; Pulse Ox 97% on R/A; ll3 21:30 BP 134 / 76; Pulse 74; Resp 15; Pulse Ox 99% on R/A; rv 22:30 BP 150 / 95; Pulse 79; Resp 18; Temp 98.5; Pulse Ox 100% on R/A; rv 15:09 Body Mass Index 25.82 (72.57 kg, 167.64 cm) hb 15:09 Pain Scale: Adult hb [place] Coma Score: 22:30 Eye Response: spontaneous(4). Motor Response: obeys commands(6). Verbal Response: rv oriented(5). Total: 15. ED Course: 15:09 Patient arrived in ED. hb 15:09 Yuly Hernandez FNP-C is PHCP. snw 15:09 Felix Rollins MD is Attending Physician. snw 15:11 Triage completed. hb 15:12 Arm band placed on. hb 15:12 Patient has correct armband on for positive identification. hb 15:14 Jenae Velez, RN is Primary Nurse. hb 15:36 Inserted saline lock: 20 gauge in right antecubital area, using aseptic technique. hb Blood collected. 16:24 Chest Single View XRAY In Process Unspecified. EDMS 20:28 Velvet Boyd MD is Hospitalizing Provider. snw 21:45 CT Abd/Pelvis - IV Contrast Only In Process Unspecified. EDMS 22:31 No provider procedures requiring assistance completed. Patient admitted, IV remains in rv place. Administered Medications: 15:40 Drug: NS 0.9% IV (30 ml/kg) 30 ml/kg Route: IV; Rate: bolus; Site: right antecubital; hb 22:34 Follow up: IV Status: Completed infusion; IV Intake: 2000ml rv 16:11 Drug: Ibuprofen PO 400 mg Route: PO; hb 17:10 Follow up: Response: No adverse reaction hb 16:29 Drug: Potassium Chloride IV 20 mEq Route: IV; Rate: calculated rate; Site: right hb antecubital; 22:34 Follow up: Response: No adverse reaction; IV Status: Completed infusion; IV Intake: rv 100ml 16:29 Drug: Potassium PO Effervescent Tablet 50 mEq Route: PO; hb 22:33 Follow up: Response: No adverse reaction; Marked relief of symptoms rv 18:37 Drug: Potassium Chloride IV 20 mEq Route: IV; Rate: calculated rate; Site: right ss antecubital; 22:33 Follow up: Response: No adverse reaction rv 22:33 Follow up: IV Status: Completed infusion; IV Intake: 100ml rv 18:45 Drug: NS 0.9% IV 250 ml Route: IV; Rate: bolus; Site: right antecubital; hb 22:33 Follow up: IV Status: Completed infusion; IV Intake: 250ml rv 22:27 Drug: Rocephin IV 1 grams Route: IV; Rate: calculated rate; Site: right antecubital; ll3 22:33 Follow up: IV Status: Infusion continued upon admission rv Medication: 15:12 VIS not applicable for this client. hb Intake: 22:33 IV: 250ml; Total: 250ml. rv 22:33 IV: 100ml; Total: 350ml. rv 22:34 IV: 100ml; Total: 450ml. rv 22:34 IV: 2000ml; Total: 2450ml. rv Outcome: 20:29 Decision to Hospitalize by Provider. snw 22:32 Admitted to Tele accompanied by tech, via wheelchair, room 404, with chart, Report rv called to MACRINA FLYNN 22:32 Condition: good 22:32 Instructed on the need for admit. 22:34 Patient left the ED. rv Signatures: Dispatcher [employer] EDMS Yuly Hernandez, CHANEL-C SALES MARKET LEADER-CsnStephanie Proctor RN RN Jenae Velez RN RN Florentin Ricks RN RN rv Keira Munoz RN RN ll3 Corrections: (The following items were deleted from the chart) 15:15 15:09 BP 147 / 71; Pulse 96bpm; Resp 18bpm; Pulse Ox 100% RA; Temp 102.3F Oral; 74.84 hb kg; Height 5 ft. 6 in.; BMI: 26.6; Pain 8/10, Adult; hb 15:55 15:54 NS 0.9% IV (30 ml/kg) 30 ml/kg IV at bolus in right antecubital hb hb 16:59 16:45 BP 132 / 81; Pulse 81bpm; Resp 16bpm; Pulse Ox 99% RA; hb hb
--- NOTE | 2023-01-20 20:30 | EDPHYS ---
Physician Documentation [facility] Name: Isis Ledezma Age: 57 yrs Sex: Female : 1965 Arrival Date: 01/20/2023 Time: 15:04 Bed 5 Private MD: ED Physician Felix Rollins HPI: 01/20 15:35 This 57 yrs old Black Female presents to ER via EMS with complaints of snw Nausea/Vomiting/Diarrhea, Fever, General Weakness. 15:35 The patient presents to the emergency department with nausea, vomiting. snw 15:37 The patient or guardian reports flu symptoms, arthralgias, low-grade fever, myalgias, snw no appetite. Onset: The symptoms/episode began/occurred suddenly, 3 day(s) ago. Associated signs and symptoms: Pertinent positives: fever, rhinorrhea, vomiting, bodyaches. Severity of symptoms: At their worst the symptoms were moderate. The patient has not experienced similar symptoms in the past. The patient has not recently seen a physician, and does not have an established primary care provider. Historical: - Allergies: 15:11 No Known Allergies; hb - Home Meds: 15:11 None [Active]; hb - PMHx: 15:11 Anemia; hb - PSHx: 15:11 section; Appendectomy; hb - Immunization history:: Adult Immunizations up to date. - Social history:: Smoking status: Patient denies any tobacco usage or history of. ROS: 15:26 Eyes: Negative for injury, pain, redness, and discharge, ENT: Negative for injury, snw pain, and discharge, Neck: Negative for injury, pain, and swelling. 15:26 Back: Negative for injury and pain, : Negative for injury, bleeding, discharge, and swelling, MS/Extremity: Negative for injury and deformity, Skin: Negative for injury, rash, and discoloration, Neuro: Negative for headache, weakness, numbness, tingling, and seizure, Psych: Negative for depression, anxiety, suicide ideation, homicidal ideation, and hallucinations. 15:26 Constitutional: Positive for body aches, chills, fever, malaise, poor PO intake. 15:26 Cardiovascular: Positive for orthopnea. 15:26 Respiratory: Positive for cough, shortness of breath. 15:26 Abdomen/GI: Positive for nausea and vomiting. Exam: 15:24 Head/Face: Normocephalic, atraumatic. Eyes: Pupils equal round and reactive to light, snw extra-ocular motions intact. Lids and lashes normal. Conjunctiva and sclera are non-icteric and not injected. Cornea within normal limits. Periorbital areas with no swelling, redness, or edema. ENT: Nares patent. No nasal discharge, no septal abnormalities noted. Tympanic membranes are normal and external auditory canals are clear. Oropharynx with no redness, swelling, or masses, exudates, or evidence of obstruction, uvula midline. Mucous membranes moist. Neck: Trachea midline, no thyromegaly or masses palpated, and no cervical lymphadenopathy. Supple, full range of motion without nuchal rigidity, or vertebral point tenderness. No Meningismus. Chest/axilla: Normal chest wall appearance and motion. Nontender with no deformity. No lesions are appreciated. 15:24 Abdomen/GI: Soft, non-tender, with normal bowel sounds. No distension or tympany. No guarding or rebound. No evidence of tenderness throughout. Back: No spinal tenderness. No costovertebral tenderness. Full range of motion. MS/ Extremity: Pulses equal, no cyanosis. Neurovascular intact. Full, normal range of motion. Neuro: Awake and alert, GCS 15, oriented to person, place, time, and situation. Cranial nerves II-XII grossly intact. Motor strength 5/5 in all extremities. Sensory grossly intact. Cerebellar exam normal. Normal gait. 15:24 Constitutional: The patient appears alert, anxious, diaphoretic, febrile, uncomfortable. 15:24 Cardiovascular: Rate: tachycardic, Rhythm: irregularly irregular, Heart sounds: murmur, systolic, gallop, JVD: is not appreciated. 15:24 Respiratory: the patient does not display signs of respiratory distress, Respirations: shallow respirations, that is moderate, tachypnea, Breath sounds: decreased breath sounds. 15:24 Skin: injury, diaphoresis. Vital Signs: 15:09 BP 147 / 71; Pulse 96; Resp 18; Temp 102.3(O); Pulse Ox 100% on R/A; Weight 72.57 kg; hb Height 5 ft. 6 in. ; Pain 8/10; 16:45 BP 132 / 81; Pulse 81; Resp 16; Temp 99.5(O); Pulse Ox 99% on R/A; hb 18:36 BP 108 / 64; Pulse 66; Resp 18; Pulse Ox 99% on R/A; hb 20:15 BP 113 / 89; Pulse 74; Resp 20; Pulse Ox 97% on R/A; ll3 21:30 BP 134 / 76; Pulse 74; Resp 15; Pulse Ox 99% on R/A; rv 22:30 BP 150 / 95; Pulse 79; Resp 18; Temp 98.5; Pulse Ox 100% on R/A; rv 15:09 Body Mass Index 25.82 (72.57 kg, 167.64 cm) hb 15:09 Pain Scale: Adult hb [place] Coma Score: 22:30 Eye Response: spontaneous(4). Motor Response: obeys commands(6). Verbal Response: rv oriented(5). Total: 15. MDM: 15:17 Patient medically screened. snw 15:22 Differential diagnosis: bacterial infection, viral infection. Data reviewed: vital snw signs, nurses notes. ED course: temp recheck 103.2. . 18:45 Management of patient was discussed with the following: Hospitalist: Martín Rodriguez. snw Counseling: I had a detailed discussion with the patient and/or guardian regarding: the historical points, exam findings, and any diagnostic results supporting the discharge/admit diagnosis, lab results, radiology results, the need for further work-up and treatment in the hospital. Awaiting: urine for sample and culture prior to abx. . 18:46 Post IV fluid administration reassessment for Sepsis: Client prescribed 30 mL/kg IVF. snw Heart: Regular rate/rhythm noted. tachycardia resolved Capillary refill examination performed. Capillary refill noted to be < 2 seconds. Current vital signs reviewed: Yes. Neuro: Neurological examination improved from previous exam. Cardio: Cardiovascular examination improved from previous exam. Heart rate and blood pressure have improved. Respiratory: Respiratory exam improved from previous exam. 01/20 15:14 Order name: Blood Culture Adult (2) snw 01/20 15:14 Order name: CBC with Diff; Complete Time: 20:39 snw 01/20 15:14 Order name: CMP; Complete Time: 16:14 snw 01/20 15:14 Order name: Lactate w/ 2H reflex if indic.; Complete Time: 16:09 snw 01/20 15:14 Order name: Protime (+inr); Complete Time: 16:39 snw 01/20 15:14 Order name: Ptt, Activated; Complete Time: 16:39 snw 01/20 15:14 Order name: Urinalysis w/ reflexes; Complete Time: 21:01 snw 01/20 15:14 Order name: Flu; Complete Time: 16:39 snw 01/20 15:14 Order name: SARS RAPID; Complete Time: 16:09 snw 01/20 15:14 Order name: Strep; Complete Time: 16:14 snw 01/20 15:15 Order name: Lipase; Complete Time: 16:14 snw 01/20 16:13 Order name: Throat Culture EDMS 01/20 20:39 Order name: CBC Smear Scan; Complete Time: 20:39 EDMS 01/20 20:50 Order name: Urine Culture EDMS 01/20 21:18 Order name: Urinalysis w/ reflexes EDMS 01/20 21:18 Order name: Basic Metabolic Panel EDMS 01/20 21:18 Order name: Basic Metabolic Panel EDMS 01/20 21:18 Order name: Basic Metabolic Panel EDMS 01/20 21:18 Order name: Basic Metabolic Panel EDMS 01/20 21:18 Order name: CBC with Automated Diff EDMS / 21:18 Order name: CBC with Automated Diff EDMS / 21:18 Order name: CBC with Automated Diff EDMS / 21:18 Order name: CBC with Automated Diff EDMS / 21:18 Order name: Magnesium EDMS / 21:18 Order name: Magnesium EDMS 01/20 21:18 Order name: Magnesium EDMS 01/20 21:18 Order name: Magnesium EDMS 01/20 15:14 Order name: Chest Single View XRAY; Complete Time: 16:39 snw 01/20 21:14 Order name: CT Abd/Pelvis - IV Contrast Only; Complete Time: 22:01 snw 01/20 15:14 Order name: EKG; Complete Time: 15:14 snw 01/20 21:18 Order name: NPO EDMS 01/20 15:14 Order name: Accucheck; Complete Time: 15:55 snw 01/20 15:14 Order name: Cardiac monitoring; Complete Time: 15:55 snw 01/20 15:14 Order name: EKG - Nurse/Tech; Complete Time: 16:07 snw 01/20 15:14 Order name: IV Saline Lock - Large Bore; Complete Time: 15:54 snw 01/20 15:14 Order name: Labs collected and sent; Complete Time: 15:54 snw 01/20 15:14 Order name: O2 Per Protocol; Complete Time: 15:15 snw 01/20 15:14 Order name: O2 Sat Monitoring; Complete Time: 15:15 snw 01/20 15:14 Order name: Vital Signs; Complete Time: 15:15 snw 01/20 15:22 Order name: Misc. Order: please change pt to gown; Complete Time: 16:11 snw 01/20 20:19 Order name: Misc. Order: Please collect urine for specimen eval; Complete Time: 20:35 snw EC:05 Rate is 86 beats/min. Rhythm is regular. QRS [place] is Normal. QT interval is prolonged. snw Clinical impression: NSR w/ Non-specific ST/T Changes. Administered Medications: 15:40 Drug: NS 0.9% IV (30 ml/kg) 30 ml/kg Route: IV; Rate: bolus; Site: right antecubital; hb 22:34 Follow up: IV Status: Completed infusion; IV Intake: 2000ml rv 16:11 Drug: Ibuprofen PO 400 mg Route: PO; hb 17:10 Follow up: Response: No adverse reaction hb 16:29 Drug: Potassium Chloride IV 20 mEq Route: IV; Rate: calculated rate; Site: right hb antecubital; 22:34 Follow up: Response: No adverse reaction; IV Status: Completed infusion; IV Intake: rv 100ml 16:29 Drug: Potassium PO Effervescent Tablet 50 mEq Route: PO; hb 22:33 Follow up: Response: No adverse reaction; Marked relief of symptoms rv 18:37 Drug: Potassium Chloride IV 20 mEq Route: IV; Rate: calculated rate; Site: right ss antecubital; 22:33 Follow up: Response: No adverse reaction rv 22:33 Follow up: IV Status: Completed infusion; IV Intake: 100ml rv 18:45 Drug: NS 0.9% IV 250 ml Route: IV; Rate: bolus; Site: right antecubital; hb 22:33 Follow up: IV Status: Completed infusion; IV Intake: 250ml rv 22:27 Drug: Rocephin IV 1 grams Route: IV; Rate: calculated rate; Site: right antecubital; ll3 22:33 Follow up: IV Status: Infusion continued upon admission rv Disposition: 01/21 13:12 Co-signature as Attending Physician, Felix Rollins MD I agree with the assessment and kdr plan of care. Disposition Summary: 01/20/23 20:29 Hospitalization Ordered Hospitalization Status: Observation snw Provider: Velvet Boyd snw Location: Telemetry/MedSur (observation) snw Condition: Stable snw Problem: new snw Symptoms: have improved snw Bed/Room Type: Standard snw Room Assignment: 404(01/20/23 21:23) mw Diagnosis - Fever, unspecified snw - Dehydration snw - Hypokalemia snw - Iron deficiency anemia, unspecified snw - UTI/ Urinary tract infection, site not specified snw Forms: - Medication Reconciliation Form snw - SBAR form snw Signatures: Dispatcher [employer] Krystal Bradley, RN Felix Ortiz MD MD kdr Yuly Hernandez, METAL SHAPING MACHINE OPERATOR-C METAL SHAPING MACHINE OPERATOR-Csnw Stephanie Sanchez RN RN ss Jenae Velez RN RN Keira Munoz RN RN 3 Florentin Ricks RN rv Corrections: (The following items were deleted from the chart) 01/20 21:23 20:29 snw mw
[2023-01-20 20:38] LABS: Blood Morphology Comment NOTED (NOT SEEN); Platelet Estimate DECR; Platelets, Giant OCC; White Blood Cell Scan OK (OK)
[2023-01-20 20:39] LABS: Anisocytosis 2+; Hypochromasia 1+; Polychromasia SLIGHT
[2023-01-20 20:46] LABS: Specific Gravity 1.012 (1.005-1.030); Urine Bacteria <20 /HPF (<20); Urine Bilirubin NEGATIVE (Negative); Urine Blood Trace (Negative); Urine Clarity Extremely Turbid (Clear); Urine Color Light-Yellow (Yellow); Urine Glucose NEGATIVE (Negative); Urine Mucus Slight /HPF (None Seen); Urine Protein 1+ (Negative); Urine RBC <5 /HPF (None Seen); Urine Urobilinogen Normal (Normal); Urine WBC Clump Rare /HPF (None Seen)
[2023-01-20] MEDS ORDERED: ACETAMINOPHEN 500 MG TAB PO PRN (21:10)
[2023-01-20] MEDS ORDERED: ONDANSETRON 4 MG/2 ML VIAL IV PRN (21:10)
[2023-01-20] MEDS ORDERED: CEFTRIAXONE 1000 MG/VIAL ONE (21:32)
[2023-01-20] MEDS ORDERED: NA CHLORIDE 0.9% 50 ML ONE (21:33)
--- NOTE | 2023-01-20 21:58 | RAD REPORT ---
EXAM DESCRIPTION: CT - Abdomen Pelvis W Contrast - 01/20/2023 9:44 pm CLINICAL HISTORY: Abdominal pain COMPARISON: 2021 TECHNIQUE: Computed axial tomography of the abdomen pelvis was obtained. 95 cc Isovue-300 was admini stered intravenously. Oral contrast was not requested which limits evaluation of bowel and appendix All CT scans are performed using dose optimization technique as appropriate and may include automated exposure control or mA/KV adjustment according to patient size. FINDINGS: Liver, spleen, pancreas, adrenals and left kidney are unremarkable. 2 millimeter calculus right kidney. Several small low-density areas upper pole right kidney reaching the periphery compatible with pyelonephritis. Stranding within the adjacent fat. There is no evidence of diverticulitis. Enlarged, lobulated fibroid uterus Diastases rectus abdominis muscles 6 centimeters IMPRESSION: Mild to moderate right pyelonephritis 2 millimeter nonobstructing right renal calculus
--- NOTE | 2023-01-20 22:20 | P.HP ---
Certification for Inpatient With expected LOS: <2 Midnights Patient will require the following post-hospital care: None Practitioner: I am a practitioner with admitting privileges, knowledge of patient current condition, hospital course, and medical plan of care. Services: Services provided to patient in accordance with Admission requirements found in Title 42 Section 412.3 of the Code of Federal Regulations Patient History Date of Service: 01/20/23 Reason for admission: Abdominal pain, NV History of Present Illness: 57 yrs old Black Female with past medical history DELFINA presents to ER via EMS complaining of Abdominal pain. She reports associate NV that started 3 days ago and has gotten progressively worse. She reports associated fever, body aches. She reports nothing makes her symptoms better. She reports PO intake makes symptoms worse. Denies seeing PCP for related symptoms. She Tiff Chest pain, shortness of breath, edema, dizziness or syncope. Allergies NK Allergy (Uncoded 06/30/15 01:39) Unknown NKDA Allergy (Uncoded 08/28/15 22:23) Unknown No Known Allerg Allergy (Uncoded 03/03/17 06:56) Unknown No Known Allergies Allergy (Uncoded 04/16/17 17:02) Unknown Home Medications: Ascorbic Acid [Vitamin C] 1,000 mg PO DAILY 30 Days #30 tab 07/18/22 Ferrous Fumarate [Hemocyte] 324 mg PO TID #90 tab 07/18/22 - Past Medical/Surgical History Diabetic: No -: DELFINA - Social History Alcohol use: No CD- Drugs: No Caffeine use: No Physical Examination - Physical Exam General: Oriented x3, Other (appears ill) HEENT: Atraumatic, Normocephalic, PERRLA Neck: Supple, 2+ carotid pulse no bruit Respiratory: Clear to auscultation bilaterally, Normal air movement Cardiovascular: Normal pulses, Regular rate/rhythm Capillary refill: <2 Seconds Gastrointestinal: Normal bowel sounds, Tenderness, Rebound Musculoskeletal: No clubbing, No swelling Integumentary: No rashes, No breakdown Neurological: Normal speech, Cranial nerves 3-12 intact - Studies Laboratory Data (last 24 hrs) 01/20/23 15:36: PT 15.4 H, INR 1.40, APTT 33.3 01/20/23 15:36: Sodium 134 L, Potassium 2.4 L*, BUN 9, Creatinine 0.78, Glucose 128 H, Total Bilirubin 0.8, AST 21, ALT 22, Alkaline Phosphatase 64, Lipase 30 01/20/23 15:36: WBC 9.50, Hgb 9.9 L, Hct 32.1 L, Plt Count 112 L Microbiology Data (last 24 hrs): 01/20/23 15:35 Nasopharnyx Influenza Type A Antigen Screen - Final 01/20/23 15:35 Nasopharnyx Influenza Type B Antigen Screen - Final 01/20/23 15:35 Throat Group A Streptococcus Rapid Screen - Final Assessment and Plan - Plan Assessment/Plan Acute Pylenephritis DELFINA Assessment/Plan Admit to med surg, tele Acute Pylenephritis IVF, IV ABX, prn analgesics, antiemetics DELFINA resume approp home meds Diet NPO advance as tolerated Full Code DVT Lovenox Discharge Plan: Home - Advance Directives Does patient have a Living Will: No Does patient have a Durable POA for Healthcare: No - Code Status/Comfort Care Code Status Assessed: Yes Code Status: Full Code Physician Review: Patient Assessed, Agree with Above Assessment and Plan Critical Care: Yes Time Spent Managing Pts Care (In Minutes): 55
[2023-01-20] MEDS: NA CHLORIDE 0.9% 1,000 ML IV SCH (22:57)
[2023-01-21] MEDS: ACETAMINOPHEN 500 MG TAB PO SCH ×4 (00:55→18:23)
[2023-01-21] MEDS: CIPROFLOXACIN 400mg IV 400 MG/200 ML BAG IV SCH ×2 (01:29→09:12)
[2023-01-21] MEDS: IBUPROFEN 400 MG TAB PO PRN ×2 (03:23→15:47)
[2023-01-21 04:37] LABS: Renal Epithelial <5 /HPF (None Seen); Specific Gravity 1.025 (1.005-1.030); Urine Bacteria None Seen /HPF (<20); Urine Bilirubin NEGATIVE (Negative); Urine Blood Negative (Negative); Urine Clarity Clear (Clear); Urine Color Light-Yellow (Yellow); Urine Glucose NEGATIVE (Negative); Urine Mucus Slight /HPF (None Seen); Urine Protein TRACE (Negative); Urine RBC <5 /HPF (None Seen); Urine Urobilinogen Normal (Normal)
[2023-01-21 06:28] LABS: Absolute Lymphocytes (CBC) 0.6 K/uL (0.7-4.9); Hematocrit 29.4 % (36.0-45.0); Lymphocytes % 7.7 % (15.3-44.8); MPV 9.9 fL (7.6-11.3); RBC Red Blood Cell Count 4.82 M/uL (3.86-4.86)
[2023-01-21 07:06] LABS: Magnesium 1.7 mg/dL (1.6-2.4)
[2023-01-21 07:08] LABS: Potassium 2.6 mEq/L (3.5-5.1)
[2023-01-21] MEDS ORDERED: MAGNESIUM SULFATE 1 gm IVPB 1 GM/100 ML BAG IV ONE (07:23)
[2023-01-21] MEDS: NA CHLORIDE 0.9% 1,000 ML IV SCH (09:11)
[2023-01-21] MEDS: KCL 20 MEQ/100 mL IVPB 20 MEQ/100 ML BAG IV SCH ×3 (09:15→16:45)
--- NOTE | 2023-01-21 09:46 | P.CNS ---
Date of Consult: 01/21/23 Reason for Consult: pyelonephritis, bacteremia Chief Complaint: Abdominal pain, NV History of Present Illness: Patient is a 57 yo female with a history of iron deficiency anemia who presented to the ED with complaints of abdominal pain and fever which was worsening over the past 3 days prior to admission. ED workup revealing pyelonephritis and bacteremia and patient was subsequently admitted for further management. Allergies No Known Allergies Allergy (Unverified 01/21/23 07:21) Home medications list reviewed: Yes Home Medications: NK [No Home Meds] 01/20/23 - Past Medical/Surgical History Diabetic: No -: DELFINA - Social History Smoking Status: Current every day smoker Smoking therapy provided: Yes Patient receptive to therapy: Yes Alcohol use: No CD- Drugs: No Caffeine use: No Place of Residence: Home Review of Systems 10-point ROS is otherwise unremarkable General: Fever, Weakness Physical Examination Temp Pulse Resp BP Pulse Ox 98.7 F 85 20 120/59 L 96 01/21/23 04:00 01/21/23 04:00 01/21/23 04:00 01/21/23 04:00 01/21/23 04:00 General: Alert, In no apparent distress, Oriented x3 HEENT: Atraumatic, Normocephalic Neck: Supple, JVD not distended Respiratory: Clear to auscultation bilaterally, Normal air movement Cardiovascular: No edema, Normal pulses, Regular rate/rhythm Gastrointestinal: Normal bowel sounds, Soft and benign Musculoskeletal: No clubbing, No swelling Integumentary: No rashes, No breakdown Neurological: Normal speech, Normal tone, Normal affect Laboratory Data - Reviewed Microbiology Data - Reviewed Imagings Data: - Reviewed Conclusions/Impression: Problem List Iron deficiency anemia Acute pyelonephritis Bacteremia Hypokalemia Mild PCM Pyelopnephritis Bacteremia - CT Abdomen/Pelvis 01/20: "Mild to moderate right pyelonephritis. 2 millimeter nonobstructing right renal calculus" - Blood cultures 01/20: Gram negative rods - Urine culture 01/20: gram negative rods - Currently on Cefepime (started 01/21) - No Leukocytosis (WBC 8.2) - Tmax 102.7 F on 01/21 Recommendations - Continue Cefepime for now. Awaiting final culture reports. Will adjust antibiotics as appropriate. - Maintain adequate hydration and nutrition - Monitor fever trends. Tylenol PRN. ID will continue to follow the patient as needed. Case discussed with Camilo nSow Thank you Dr. Villarreal for consult.
[2023-01-21] MEDS: CEFEPIME 2 GM in NA CHLORIDE 0.9% 100 ML IV SCH ×2 (12:50→20:43)
--- NOTE | 2023-01-21 16:02 | P.PN ---
Subjective Date of Service: 01/21/23 Chief Complaint: Abdominal pain, NV Overnight, she spiked a fever to 102.7 F. This morning, she reports abdominal discomfort and nausea. She denies any chest pain, palpitations, or shortness of breath. Review of Systems 10-point ROS is otherwise unremarkable Gastrointestinal: Nausea, Abdominal Pain Physical Examination - Vital Signs Temperature: 100.1 F Blood Pressure: 134/60 Pulse: 77 Respirations: 24 Pulse Ox (%): 97 - Physical Exam General: Alert, In no apparent distress, Oriented x3 HEENT: Atraumatic, Mucous membr. moist/pink, Sclerae nonicteric Neck: JVD not distended Respiratory: Clear to auscultation bilaterally, Normal air movement Cardiovascular: No edema, Regular rate/rhythm, Normal S1 S2, No gallops, No rub s, No murmurs Gastrointestinal: Normal bowel sounds, Soft and benign, Non-distended, No rebound, No guarding, Tenderness (right-sided) Musculoskeletal: No clubbing Integumentary: No rashes Neurological: Normal speech, Normal affect - Studies Laboratory Data (last 24 hrs) 01/20/23 15:36: PT 15.4 H, INR 1.40, APTT 33.3 01/20/23 15:36: Sodium 134 L, Potassium 2.4 L*, BUN 9, Creatinine 0.78, Glucose 128 H, Total Bilirubin 0.8, AST 21, ALT 22, Alkaline Phosphatase 64, Lipase 30 01/20/23 15:36: WBC 9.50, Hgb 9.9 L, Hct 32.1 L, Plt Count 112 L Microbiology Data (last 24 hrs): 01/20/23 15:35 Nasopharnyx Influenza Type A Antigen Screen - Final 01/20/23 15:35 Nasopharnyx Influenza Type B Antigen Screen - Final 01/20/23 15:35 Throat Group A Streptococcus Rapid Screen - Final Assessment And Plan - Plan # Severe Sepsis likely secondary to Gram-Negative Right Pyelonephritis with Gram-Negative Bacteremia - POA # Thrombocytopenia suspect due to above She met SIRS criteria based on temperature > 100.9 F, HR > 90 bpm, and RR > 20 breaths/min, and the suspected source is pyelonephritis with bacteremia. Severe sepsis is suspected due to concern for tissue hypoperfusion/organ dysfunction based on platelet count < 100,000. - Evalutation thus far: - Urinalysis = 2+ nitrite, 500 leukocyte esterase, >50 WBCs, 1+ protein - Chest x-ray- "no acute abnormalities displayed" - CT abdomen/pelvis = "mild to moderate right pyelonephritis. 2 millimeter nonobstructing right renal calculus." - Sepsis order set was initiated - Initial Lactate was 0.9 - Blood cultures drawn - 10/23 positive for gram-negative rods - Broad spectrum antibiotics started: Ciprofloxacin -> Cefepime - In regards to fluids: - 30 mL/kg of IV Normal Saline was given based on her actual body weight - Infectious Diseases consulted and spoke with DENTAL LABORATORY MANAGER Sgarbi - recommendations appreciated # Hypokalemia - Replace electrolytes as needed # Iron Deficiency Anemia - Hgb stable - Continue ferrous sulfate Jonas Villarreal M.D.
[2023-01-21] MEDS: Ringers Lactate 1,000 ML IV SCH (16:44)
--- NOTE | 2023-01-21 19:32 | EKG ---
Test Date: 2023-01-20 Test Time: 16:02:29 Rib Builder: FOZIA MEASUREMENT RESULTS: Intervals: Rate: 86 NM: 164 QRSD: 108 QT: 422 QTc: 504 [place]: P: 67 NM: 164 QRS: -27 T: 65 INTERPRETIVE STATEMENTS: Normal sinus rhythm Prolonged QT Abnormal ECG Compared to ECG 08/14/2022 00:49:14 Prolonged QT interval now present Electronically Signed On 01-21-23 19:29:04 CDT by Dmitri Bojorquez
[2023-01-22] MEDS: ACETAMINOPHEN 500 MG TAB PO SCH ×5 (00:43→18:11)
[2023-01-22] MEDS: Ringers Lactate 1,000 ML IV SCH ×3 (03:01→22:00)
[2023-01-22] MEDS: CEFEPIME 2 GM in NA CHLORIDE 0.9% 100 ML IV SCH (03:06)
[2023-01-22 06:00] LABS: Absolute Lymphocytes (CBC) 0.7 K/uL (0.7-4.9); Hematocrit 27.8 % (36.0-45.0); Lymphocytes % 14.1 % (15.3-44.8); MPV 9.4 fL (7.6-11.3); RBC Red Blood Cell Count 4.55 M/uL (3.86-4.86)
[2023-01-22] MEDS ORDERED: ACETAMINOPHEN 500 MG TAB PO PRN (06:00)
[2023-01-22 06:05] LABS: Potassium 3.7 mEq/L (3.5-5.1)
[2023-01-22] MEDS: FERROUS SULFATE 325 MG TAB PO SCH (08:01)
[2023-01-22 08:05] LABS: Anisocytosis 2+; Blood Morphology Comment NOTED (NOT SEEN); Platelet Estimate DECR; Platelets, Giant FEW PRESENT; White Blood Cell Scan OK (OK)
[2023-01-22 08:06] LABS: Hypochromasia 1+; Polychromasia SLIGHT
[2023-01-22] MEDS ORDERED: POTASSIUM CL SA 10 MEQ TAB PO ONE ×2 (09:00)
--- NOTE | 2023-01-22 09:21 | P.PN ---
Date of Service: 01/22/23 Chief Complaint: Abdominal pain, N/V Subjective: Improving. Patient seen and examined at bedside. Breathing comfortably on room air. Reports feeling better although still with fever. Denies any nausea vomiting or diarrhea. Denies any back or flank pain or abdominal pain. No dysuria, urinary frequency or urgency. No acute events reported overnight. Physical Examination Temp Pulse Resp BP Pulse Ox 98.1 F 74 19 144/65 H 97 01/22/23 04:00 01/22/23 04:00 01/22/23 04:00 01/22/23 04:00 01/22/23 04:00 General: Alert, In no apparent distress, Oriented x3 HEENT: Atraumatic, Normocephalic Neck: Supple, JVD not distended Respiratory: Clear to auscultation bilaterally, Normal air movement Cardiovascular: No edema, Normal pulses, Regular rate/rhythm Gastrointestinal: Normal bowel sounds, Soft and benign Musculoskeletal: No clubbing, No swelling Integumentary: No rashes, No breakdown Neurological: Normal speech, Normal tone, Normal affect Laboratory Data - Reviewed Microbiology Data - Reviewed Imagings Data: - Reviewed Medication List: Reviewed Assessment and Plan Problem List Iron deficiency anemia Acute pyelonephritis Bacteremia Hypokalemia Mild PCM Pyelopnephritis Bacteremia - CT Abdomen/Pelvis 01/20: "Mild to moderate right pyelonephritis. 2 millimeter nonobstructing right renal calculus" - Blood cultures 01/20: Gram negative rods - Urine culture 01/20: Escherichia Coli - Currently on Rocephin IV - No Leukocytosis (WBC 8.2) - 24 hour Tmax 100.3 F Recommendations - Continue Rocephin for now. Upon discharge, switch to Ciprofloxacin PO to complete a 14 day course of antibiotics. Patient started on IV antibiotics 01/20. - Maintain adequate hydration and nutrition - Monitor fever trends. Tylenol PRN. ID will continue to follow the patient as needed. Case discussed with Camilo Snow
[2023-01-22] MEDS: CEFTRIAXONE 1,000 MG in NA CHLORIDE 0.9% 50 ML IVPB SCH (12:02)
--- NOTE | 2023-01-22 16:54 | P.PN ---
Subjective Date of Service: 01/22/23 Chief Complaint: Abdominal pain, NV Her fever trend continues to improve. She feels that her abdominal pain has subsided considerably compared to yesterday. She reports intermittent nausea. She denies any chills, chest pain, palpitations, or shortness of breath. Review of Systems 10-point ROS is otherwise unremarkable Gastrointestinal: Abdominal Pain Physical Examination - Vital Signs Temperature: 100.8 F Blood Pressure: 149/91 Pulse: 80 Respirations: 18 Pulse Ox (%): 99 - Studies Microbiology Data (last 24 hrs): 01/20/23 15:35 Throat Group A Streptococcus Rapid Screen - Final 01/20/23 15:35 Throat Culture & Sensitivity - Final NORMAL UPPER RESPIRATORY DYANA GROWN. 01/20/23 20:23 Clean Catch Urine [place] Count - Final >100,000 CFU/ML. 01/20/23 20:23 Clean Catch Urine - Final Escherichia Coli Gram Neg Valerio 01/20/23 16:02 Blood - Blood Blood Culture Gram Stain - Final 01/20/23 16:02 Blood - Blood Gram Stain - Final 01/20/23 15:36 Blood - Blood Blood Culture Gram Stain - Final 01/20/23 15:36 Blood - Blood Gram Stain - Final Assessment And Plan - Plan - Physical Exam General: Alert, In no apparent distress, Oriented x3 HEENT: Atraumatic, Sclerae nonicteric Respiratory: Clear to auscultation bilaterally, Normal air movement Cardiovascular: No edema, Regular rate/rhythm, No murmurs Gastrointestinal: Normal bowel sounds, Soft, Non-distended, No rebound, No guarding, Tenderness (right-sided) Musculoskeletal: No clubbing Integumentary: No rashes Neurological: Normal speech, Normal affect # Severe Sepsis likely secondary to Escherichia Coli Right Pyelonephritis with Gram-Negative Bacteremia - POA # Thrombocytopenia suspect due to above She met SIRS criteria based on temperature > 100.9 F, HR > 90 bpm, and RR > 20 breaths/min, and the suspected source is pyelonephritis with bacteremia. Severe sepsis is suspected due to concern for tissue hypoperfusion/organ dysfunction based on platelet count < 100,000. - Evalutation thus far: - Urinalysis = 2+ nitrite, 500 leukocyte esterase, >50 WBCs, 1+ protein - Chest x-ray- "no acute abnormalities displayed" - CT abdomen/pelvis = "mild to moderate right pyelonephritis. 2 millimeter nonobstructing right renal calculus." - Sepsis order set was initiated - Initial Lactate was 0.9 - Urine culture = E. Coli - Blood cultures drawn - 10/23 positive for gram-negative rods - Broad spectrum antibiotics started: Ciprofloxacin -> Cefepime -> Ceftriaxone - In regards to fluids: - 30 mL/kg of IV Normal Saline was given based on her actual body weight - Infectious Diseases consulted and spoke with CAMPAIGN DIRECTOR Sgarbi - recommendations appreciated # Hypokalemia - Replace electrolytes as needed # Iron Deficiency Anemia - Hgb stable - Continue ferrous sulfate Jonas Villarreal M.D.
[2023-01-23] MEDS: ACETAMINOPHEN 500 MG TAB PO SCH ×4 (00:14→21:25)
[2023-01-23] MEDS: Ringers Lactate 1,000 ML IV SCH ×3 (01:50→21:24)
[2023-01-23 06:51] LABS: Absolute Lymphocytes (CBC) 1.4 K/uL (0.7-4.9); Hematocrit 28.1 % (36.0-45.0); Lymphocytes % 35.8 % (15.3-44.8); MCV 60.2 fL (80-100); RBC Red Blood Cell Count 4.66 M/uL (3.86-4.86)
[2023-01-23 07:06] LABS: Magnesium 1.7 mg/dL (1.6-2.4); Potassium 3.4 mEq/L (3.5-5.1)
[2023-01-23] MEDS: FERROUS SULFATE 325 MG TAB PO SCH (08:19)
[2023-01-23] MEDS: CEFTRIAXONE 1,000 MG in NA CHLORIDE 0.9% 50 ML IVPB SCH (08:19)
--- NOTE | 2023-01-23 10:16 | P.PN ---
Date of Service: 01/23/23 Chief Complaint: Abdominal pain, N/V Subjective: Fever of 101 F around midnight. Denies any nausea, vomiting, diarrhea or abdominal pain. No flank pain, chest pain or back pain. No shortness of breath or palpitations. Physical Examination Temp Pulse Resp BP Pulse Ox 98.0 F 62 16 134/63 98 01/23/23 08:00 01/23/23 08:00 01/23/23 08:00 01/23/23 08:00 01/23/23 08:00 General: Alert, In no apparent distress, Oriented x3 HEENT: Atraumatic, Normocephalic Neck: Supple, JVD not distended Respiratory: Clear to auscultation bilaterally, Normal air movement Cardiovascular: No edema, Normal pulses, Regular rate/rhythm Gastrointestinal: Normal bowel sounds, Soft and benign Musculoskeletal: No clubbing, No swelling Integumentary: No rashes, No breakdown Neurological: Normal speech, Normal tone, Normal affect Laboratory Data - Reviewed Microbiology Data - Reviewed Imagings Data: - Reviewed Medication List: Reviewed Assessment and Plan Problem List Iron deficiency anemia Acute pyelonephritis E.coli Bacteremia Mild PCM Leukopenia Thrombocytopenia Pyelopnephritis Bacteremia - CT Abdomen/Pelvis 01/20: "Mild to moderate right pyelonephritis. 2 millimeter nonobstructing right renal calculus" - Blood cultures 01/20: Escherichia Coli - Urine culture 01/20: Escherichia Coli - Previously on Cefepime 01/21 - Currently on Rocephin IV (started 01/22) - No Leukocytosis - Tmax 101 F Recommendations - Continue Rocephin for now. Once patient afebrile 48 hours, switch to Ciprofloxacin PO to complete a 14 day course of antibiotics. - Started on IV antibiotcs 01/20 - Maintain adequate hydration and nutrition - Monitor fever trends. Tylenol PRN. ID will continue to follow the patient as needed. Case discussed with Camilo Snow
--- NOTE | 2023-01-23 11:12 | P.PN ---
Subjective Date of Service: 01/23/23 Chief Complaint: Abdominal pain, NV Overnight, she spiked a fever to 101.0 F. Overall, she continues to improve. She denies any dysuria. She states her abdominal pain has improved significantly. She denies any chills, chest pain, palpitations, or shortness of breath. Review of Systems 10-point ROS is otherwise unremarkable General: Fever Gastrointestinal: Abdominal Pain (minimal) Physical Examination - Vital Signs Temperature: 98.0 F Blood Pressure: 134/63 Pulse: 62 Respirations: 16 Pulse Ox (%): 98 - Studies Microbiology Data (last 24 hrs): 01/20/23 16:02 Blood - Blood Aerobic Blood Culture - Final Gram Neg Valerio Escherichia Coli 01/20/23 16:02 Blood - Blood Blood Culture Gram Stain - Final 01/20/23 16:02 Blood - Blood Anaerobic Blood Culture - Final Gram Neg Valerio Escherichia Coli 01/20/23 16:02 Blood - Blood Gram Stain - Final 01/20/23 15:36 Blood - Blood Aerobic Blood Culture - Final Gram Neg Valerio Escherichia Coli 01/20/23 15:36 Blood - Blood Blood Culture Gram Stain - Final 01/20/23 15:36 Blood - Blood Anaerobic Blood Culture - Final Gram Neg Valerio Escherichia Coli 01/20/23 15:36 Blood - Blood Gram Stain - Final 01/20/23 15:35 Throat Group A Streptococcus Rapid Screen - Final 01/20/23 15:35 Throat Culture & Sensitivity - Final NORMAL UPPER RESPIRATORY DYANA GROWN. 01/20/23 20:23 Clean Catch Urine [place] Count - Final >100,000 CFU/ML. 01/20/23 20:23 Clean Catch Urine - Final Escherichia Coli Gram Neg Valeiro Assessment And Plan - Plan - Physical Exam General: Alert, In no apparent distress, Oriented x3 HEENT: Atraumatic, Sclerae nonicteric Respiratory: Clear to auscultation bilaterally, Normal air movement Cardiovascular: No edema, Regular rate/rhythm, No murmurs Gastrointestinal: Soft, Non-distended, Tenderness (minimal right-sided) Musculoskeletal: No clubbing Integumentary: No rashes Neurological: Normal speech, Normal affect # Severe Sepsis likely secondary to Escherichia Coli Right Pyelonephritis with Bacteremia - POA # Thrombocytopenia suspect due to above She met SIRS criteria based on temperature > 100.9 F, HR > 90 bpm, and RR > 20 breaths/min, and the suspected source is pyelonephritis with bacteremia. Severe sepsis is suspected due to concern for tissue hypoperfusion/organ dysfunction based on platelet count < 100,000. - Evalutation thus far: - Urinalysis = 2+ nitrite, 500 leukocyte esterase, >50 WBCs, 1+ protein - Chest x-ray- "no acute abnormalities displayed" - CT abdomen/pelvis = "mild to moderate right pyelonephritis. 2 millimeter nonobstructing right renal calculus." - Sepsis order set was initiated - Initial Lactate was 0.9 - Urine culture = E. Coli - Blood cultures drawn - 10/23 positive for E. Coli - Broad spectrum antibiotics started: Ciprofloxacin -> Cefepime -> Ceftriaxone - In regards to fluids: - 30 mL/kg of IV Normal Saline was given based on her actual body weight - Infectious Diseases consulted and spoke with STUDENT ACTIVITIES DIRECTOR Sgarbi - recommendations appreciated - Recommends a total antibiotic course of 14 days. Suggests that we can switch to ciprofloxacin once afebrile x 24 hours # Hypokalemia - Replace electrolytes as needed # Iron Deficiency Anemia - Hgb stable - Continue ferrous sulfate Jonas Villarreal M.D.
[2023-01-23] MEDS ORDERED: MAGNESIUM SULFATE 1 gm IVPB 1 GM/100 ML BAG IV ONE (12:50)
[2023-01-23] MEDS ORDERED: POTASSIUM CL SA 10 MEQ TAB PO ONE (12:50)
[2023-01-24] MEDS: ACETAMINOPHEN 500 MG TAB PO SCH ×4 (01:00→20:23)
[2023-01-24 05:05] LABS: Absolute Lymphocytes (CBC) 1.3 K/uL (0.7-4.9); Hematocrit 26.6 % (36.0-45.0); Lymphocytes % 31.9 % (15.3-44.8); MPV 10.7 fL (7.6-11.3); RBC Red Blood Cell Count 4.37 M/uL (3.86-4.86)
[2023-01-24 05:14] LABS: MCV 60.9 fL (80-100)
[2023-01-24 05:27] LABS: Magnesium 2.1 mg/dL (1.6-2.4); Potassium 3.4 mEq/L (3.5-5.1)
[2023-01-24 05:56] LABS: Phosphorus 3.8 mg/dL (2.5-4.9)
[2023-01-24] MEDS: Ringers Lactate 1,000 ML IV SCH ×2 (06:14→13:58)
--- NOTE | 2023-01-24 08:38 | P.PN ---
Date of Service: 01/24/23 Chief Complaint: Abdominal pain, N/V Subjective: Continues to improve. Feeling better today. No fever recorded 24 hours. No nausea, vomiting or diarrhea. No abdominal pain, flank pain or chest pain. No dysuria, hematuria, urinary frequency, urgency or retention. Plan for discharge home on oral antibiotics once afebrile 48 hours. Physical Examination Temp Pulse Resp BP Pulse Ox 97.2 F 66 18 123/62 98 01/24/23 04:00 01/24/23 04:00 01/24/23 04:00 01/24/23 04:00 01/24/23 04:00 General: Alert, In no apparent distress, Oriented x3 HEENT: Atraumatic, Normocephalic Neck: Supple, JVD not distended Respiratory: Clear to auscultation bilaterally, Normal air movement Cardiovascular: No edema, Normal pulses, Regular rate/rhythm Gastrointestinal: Normal bowel sounds, Soft and benign Musculoskeletal: No clubbing, No swelling Integumentary: No rashes, No breakdown Neurological: Normal speech, Normal tone, Normal affect Laboratory Data - Reviewed Microbiology Data - Reviewed Imagings Data: - Reviewed Medication List: Reviewed Assessment and Plan Problem List Iron deficiency anemia Acute pyelonephritis E.coli Bacteremia Mild PCM Leukopenia Thrombocytopenia Pyelopnephritis Bacteremia - CT Abdomen/Pelvis 01/20: "Mild to moderate right pyelonephritis. 2 millimeter nonobstructing right renal calculus" - Blood cultures 01/20: Escherichia Coli - Urine culture 01/20: Escherichia Coli - Previously on Cefepime 01/21 - Currently on Rocephin IV (started 01/22) - No Leukocytosis - No fever 24 hours Recommendations Ok to discharge home on oral antibiotics once afebrile 48 hours. - Upon discharge, switch to Bactrim DS PO BID to complete a 14 day course of antibiotics (01/21-02/04). QTc >500 precludes the use of fluoroquinolones - Fever trends, Tylenol PRN Follow up with PCP in 1-2 weeks. Patient educated on importance of completing full course of antibiotics and to return to ED if worsening symptoms. ID will continue to follow the patient as needed. Case discussed with Camilo Snow
[2023-01-24] MEDS ORDERED: POTASSIUM 25 MEQ EFFERV TAB PO ONE (09:00)
[2023-01-24] MEDS: FERROUS SULFATE 325 MG TAB PO SCH (09:33)
[2023-01-24] MEDS: CEFTRIAXONE 1,000 MG in NA CHLORIDE 0.9% 50 ML IVPB SCH (09:34)
--- NOTE | 2023-01-24 19:17 | P.PN ---
Subjective Date of Service: 01/24/23 Chief Complaint: Abdominal pain, NV No acute events overnight. She reports that her symptoms are improving. She has remained afebrile. She denies any chills, chest pain, palpitations, or shortness of breath. Per Infectious Diseases, they would like her to be afebrile for 48 hours prior to discharge. Review of Systems 10-point ROS is otherwise unremarkable Physical Examination - Vital Signs Temperature: 97.6 F Blood Pressure: 143/68 Pulse: 68 Respirations: 18 Pulse Ox (%): 98 Assessment And Plan - Plan - Physical Exam General: Alert, In no apparent distress, Oriented x3 HEENT: Atraumatic, Sclerae nonicteric Respiratory: Clear to auscultation bilaterally, Normal air movement Cardiovascular: No edema, Regular rate/rhythm, No murmurs Gastrointestinal: Soft, Non-distended, No tenderness Musculoskeletal: No clubbing Integumentary: No rashes Neurological: Normal speech, Normal affect # Severe Sepsis likely secondary to Escherichia Coli Right Pyelonephritis with Bacteremia - POA # Thrombocytopenia suspect due to above She met SIRS criteria based on temperature > 100.9 F, HR > 90 bpm, and RR > 20 breaths/min, and the suspected source is pyelonephritis with bacteremia. Severe sepsis is suspected due to concern for tissue hypoperfusion/organ dysfunction based on platelet count < 100,000. - Evalutation thus far: - Urinalysis = 2+ nitrite, 500 leukocyte esterase, >50 WBCs, 1+ protein - Chest x-ray- "no acute abnormalities displayed" - CT abdomen/pelvis = "mild to moderate right pyelonephritis. 2 millimeter nonobstructing right renal calculus." - Sepsis order set was initiated - Initial Lactate was 0.9 - Urine culture = E. Coli - Blood cultures drawn - 10/23 positive for E. Coli - Broad spectrum antibiotics started: Ciprofloxacin -> Cefepime -> Ceftriaxone - In regards to fluids: - 30 mL/kg of IV Normal Saline was given based on her actual body weight - Infectious Diseases consulted and spoke with CHIEF PILOT Sgarbi - recommendations appreciated - Recommends a total antibiotic course of 14 days. Suggests that we can switch to sulfamethoxazole-trimethoprim once afebrile x 48 hours # Hypokalemia - Replace electrolytes as needed # Iron Deficiency Anemia - Hgb stable - Continue ferrous sulfate Jonas Villarreal M.D.
[2023-01-24] MEDS: SMZ./TMP. 800/160 MG TABLET PO SCH (20:20)
[2023-01-24 21:07] VITALS: O2SAT 98
[2023-01-25] MEDS: ACETAMINOPHEN 500 MG TAB PO SCH ×2 (01:00→08:43)
[2023-01-25] MEDS: Ringers Lactate 1,000 ML IV SCH (02:58)
[2023-01-25 03:19] VITALS: BMI 27.9
[2023-01-25 03:50] LABS: Absolute Lymphocytes (CBC) 1.5 K/uL (0.7-4.9); Lymphocytes % 29.3 % (15.3-44.8); MCV 60.5 fL (80-100); MPV 9.4 fL (7.6-11.3); RBC Red Blood Cell Count 4.46 M/uL (3.86-4.86)
[2023-01-25 04:03] LABS: Magnesium 1.8 mg/dL (1.6-2.4); Phosphorus 4.3 mg/dL (2.5-4.9)
[2023-01-25] MEDS ORDERED: MAGNESIUM SULFATE 1 gm IVPB 1 GM/100 ML BAG IV ONE (04:46)
[2023-01-25 05:26] VITALS: TEMP 97.5
[2023-01-25] MEDS: SMZ./TMP. 800/160 MG TABLET PO SCH (08:43)
[2023-01-25] MEDS: FERROUS SULFATE 325 MG TAB PO SCH (08:43)
--- NOTE | 2023-01-25 08:48 | P.DS ---
Admission Date: 01/20/23 Discharge Date: 01/25/23 Disposition: ROUTINE DISCHARGE Discharge Condition: GOOD Reason for Admission: Abdominal pain, NV Consultations: 1. Infectious Diseases Hospital Course: DIAGNOSES: # Severe Sepsis likely secondary to Escherichia Coli Right Pyelonephritis with Bacteremia - POA - improved # Thrombocytopenia suspect due to above - improved # Hypokalemia # Iron Deficiency Anemia # Right Nephrolithiasis (2 mm) # Enlarged Fibroid Uterus # Diastases Rectus Abdominis Muscles (6 cm) DIAGNOSES: Ms. Isis Ledezma is a pleasant 57 year old female with a past medical history significant for iron deficiency anemia who was admitted to the [facility] on 01/20/2023 for abdominal pain, nausea, and vomiting. She was admitted to the Medicine service. Upon further evaluation, her CT abdomen/pelvis revealed, "mild to moderate right pyelonephritis. 2 millimeter nonobstructing right renal calculus." She was started on IV antibitiocs and Infectious Diseases was consulted. Her work-up would reveal Escherichia Coli bacteremia. Over the course of her hospitalization, her symptoms improved significantly. Dr. Stone recommended that she be afebrile for 48 hours prior to discharge. This morning, she felt significantly better and Infectious Diseases has cleared her for discharge with 10 additional days of sulfamethoxazole- trimethoprim. On 01/25/2023, she was seen on morning rounds and deemed medically stable for discharge. She was discharged with instructions to schedule follow-up appointments with her PCP, with Tank Refinisher (Dr. Pruett), and with General Surgery (Dr. Lagunas). She was provided a prescription for sulfamethoxazole- trimethoprim. She and her family members were given the opportunity to ask questions and reported no further questions. Furthermore, all questions were answered to the best of my ability. A copy of this discharge summary will be sent to the above providers to facilitate continuity of care. Today, I personally spent 25 minutes on her case, of which greater than 50% of the time was spent in patient education, counseling, and coordination of care as described above. - Physical Exam General: Alert, In no apparent distress, Oriented x3 HEENT: Atraumatic, Sclerae nonicteric Respiratory: Clear to auscultation bilaterally, Normal air movement Cardiovascular: No edema, Regular rate/rhythm, No murmurs Gastrointestinal: Soft, Non-distended, No tenderness Musculoskeletal: No clubbing Integumentary: No rashes Neurological: Normal speech, Normal affect Vital Signs/Physical Exam: Temp Pulse Resp BP Pulse Ox 97.5 F 65 18 132/67 96 01/25/23 08:43 01/25/23 04:00 01/25/23 04:00 01/25/23 04:00 01/25/23 04:00 Laboratory Data at Discharge: WBC 5.10 thou/uL (4.3-10.9) 01/25/23 03:07 Hgb 8.5 g/dL (12.0-15.0) L 01/25/23 03:07 Hct 27.0 % (36.0-45.0) L 01/25/23 03:07 Plt Count 98 thou/uL (152-406) L 01/25/23 03:07 PT 15.4 SECONDS (9.5-12.5) H 01/20/23 15:36 INR 1.40 01/20/23 15:36 APTT 33.3 SECONDS (24.3-36.9) 01/20/23 15:36 Sodium 140 mEq/L (136-145) 01/25/23 03:07 Potassium 4.0 mEq/L (3.5-5.1) D 01/25/23 03:07 BUN 13 mg/dL (7-18) 01/25/23 03:07 Creatinine 0.59 mg/dL (0.55-1.02) 01/25/23 03:07 Glucose 104 mg/dL (74-106) 01/25/23 03:07 Phosphorus 4.3 mg/dL (2.5-4.9) 01/25/23 03:07 Magnesium 1.8 mg/dL (1.6-2.4) 01/25/23 03:07 Total Bilirubin 0.8 mg/dL (0.2-1.0) 01/20/23 15:36 AST 21 U/L (15-37) 01/20/23 15:36 ALT 22 U/L (13-56) 01/20/23 15:36 Alkaline Phosphatase 64 U/L (45-117) 01/20/23 15:36 Lipase 30 U/L (13-75) 01/20/23 15:36 Home Medications: Ferrous Sulfate [Ferrous Sulfate*] 325 mg PO DAILY tab 01/25/23 Smz./Tmp. [Bactrim Ds 800 MG/160 MG*] 1 tab PO BID 10 Days #20 tab 01/25/23 New Medications: Smz./Tmp. [Bactrim Ds 800 MG/160 MG*] 1 tab PO BID 10 Days #20 tab Physician Discharge Instructions: 1. Please call and schedule a follow-up appointment with your PCP in 3-5 days - Please have your PCP repeat your urine sample to make sure the infection has been completely treated - During your stay, you were found to have anemia and low platelet count. Please follow-up with your PCP for further evaluation. - You were also found to have a small kidney stone measuring 2 mm. Please discuss with PCP 2. Please call and schedule a follow-up appointment with Tank Refinisher (Dr. Pruett) in 5-7 days - Your CT scan showed that your uterus is enlarged with fibroids. Please discuss with your Tank Refinisher 3. Please call and schedule a follow-up appointment with General Surgery (Dr. Lagunas) in 5-7 days - You have bulging of abdominal muscles in your abdominal wall. Please discuss with General Surgery for further evaluation. Diet: AHA Activity: Ad [place] Followup: Leni Pruett MD [ACTIVE - CAN ADMIT] - 1 Week Tom Lagunas MD [ACTIVE - CAN ADMIT] - 1 Week NONE,NONE [Primary Care Provider] - 2-3 Days Time spent managing pt's care (in minutes): 25
[2023-01-25 08:50] VITALS: BP 150/72
== END 2023-01-25 09:42 | disposition home or self-care (01) | DRG 872 ==
LOC: ER 15:04 → 4TH 21:11
PROVIDERS: ADMIT Hospitalist; ATTEND Internal Medicine
DX: A41.51 Sepsis due to Escherichia coli [E. coli] (principal); N10 Acute pyelonephritis; E44.1 Mild protein-calorie malnutrition; R65.20 Severe sepsis without septic shock; E86.0 Dehydration; E87.6 Hypokalemia; D69.59 Other secondary thrombocytopenia; D50.9 Iron deficiency anemia, unspecified; F17.200 Nicotine dependence, unspecified, uncomplicated; Z68.28 Body mass index [BMI] 28.0-28.9, adult; Z90.49 Acquired absence of other specified parts of digestive tract
CPT/HCPCS: 36415; 71045; 74177; 80048; 80053; 81001; 83605; 83690; 83735; 84100; 84132; 85025; 85610; 85730; 87040; 87070; 87077; 87081; 87086; 87088; 87186; 87205; 87804; 87811; 93005; 94760; 96365; 96366; 96375; 99285; J0692; J0696; J0744; J3475; J3480; J7030; J7050; J7120; Q9967

== ENCOUNTER 2024-06-23 12:17 | Emergency (ER) | payer SELFPAY ==
[2024-06-23] MEDS ORDERED: MORPHINE 4 MG/ML SYR ONE (13:15)
[2024-06-23] MEDS ORDERED: ONDANSETRON 4 MG/2 ML VIAL ONE (13:15)
[2024-06-23 13:44] LABS: Absolute Eosinophils 0.2 K/uL (0-0.5); Absolute Lymphocytes (CBC) 1.5 K/uL (0.7-4.9); Absolute Monocytes 0.5 K/uL (0.1-1.3); Absolute Neutrophil 2.7 K/uL (1.8-8.0); Basophils % 0.6 % (0-1.3); Eosinophils % 4.1 % (0-4.4); Hematocrit 41.5 % (36.0-45.0); Hemoglobin 13.3 g/dL (12.0-15.0); Lymphocytes % 30.3 % (15.3-44.8); MCH 25.6 pg (27.0-35.0); MCHC 31.9 g/dL (32.0-36.0); MCV 80.2 fL (80-100); MPV 9.9 fL (7.6-11.3); Platelets 167 thou/uL (152-406); RBC Red Blood Cell Count 5.18 M/uL (3.86-4.86); Red Cell Distribution Width 16.6 % (12.1-15.2)
[2024-06-23 14:03] LABS: ALT/SGPT 25 U/L (13-56); AST/SGOT 21 U/L (15-37); Albumin 3.5 g/dL (3.4-5.0); Albumin/Globulin Ratio 0.9 (1.1-1.8); Alkaline Phosphatase 75 U/L (45-117); Anion Gap 12.2 mEq/L (5.0-15.0); BUN Blood Urea Nitrogen 17 mg/dL (7-18); Bicarbonate 24 mEq/L (21-32); Bilirubin Total 0.4 mg/dL (0.2-1.0); Globulin 4.1 g/dL (2.3-3.5); Glomerular Filtration Rate 94 ml/min (=/>90); Glucose Level 105 mg/dL (74-106); NT PRO-BNP 51 pg/mL (<125); Potassium 3.2 mEq/L (3.5-5.1); Protein, Total 7.6 g/dL (6.4-8.2); Sodium Level 143 mEq/L (136-145); Troponin High Sensitivity 17.3 pg/mL (<58.9)
[2024-06-23 14:04] LABS: Bilirubin Direct < 0.2 mg/dL (0-0.2); Bilirubin Indirect, Calculated 0.2 mg/dL (0.2-0.8)
--- NOTE | 2024-06-23 14:07 | RAD REPORT ---
EXAMINATION: ONE VIEW CHEST XR CLINICAL INDICATION: CHEST PAIN TECHNIQUE: Frontal chest projection is submitted. Examination is limited by patient positioning and t echnique. COMPARISON: 01/20/2023 FINDINGS: The lungs are well inflated and clear. The heart is normal in size. No displaced fractures identified . IMPRESSION: No acute intrathoracic abnormalities.
--- NOTE | 2024-06-23 14:29 | EDPHYS ---
Physician Documentation [facility] Name: Isis Ledezma Age: 59 yrs Sex: Female : 1965 Arrival Date: 06/23/2024 Time: 12:17 Bed 7 Private MD: ED Physician Mateo Back HPI: 06/23 13:52 This 59 yrs old Black Female presents to ER via Ambulatory with complaints of Chest kb Pain, Back Pain, Hip Pain, Buttock pain. 13:52 Patient is a 59-year-old female who presents for low back pain that radiates into kb buttocks that started 2 days ago upon waking. Denies injury or trauma. States she self medicated with meth 2 days ago which improved the pain slightly but the pain came back. Also reports slight chest pain that started last night with intermittent shortness of breath.. Historical: - Allergies: 12:29 No Known Allergies; kc6 - PMHx: 12:29 Anemia; kc6 - PSHx: 12:29 Appendectomy; section; kc6 - Immunization history:: Adult Immunizations up to date. - Infectious Disease History:: Denies. - Social history:: Smoking status: Patient reports the use of cigarette tobacco products, smokes one pack cigarettes per day. ROS: 13:54 Constitutional: As per HPI kb Exam: 13:54 Constitutional: This is a well developed, well nourished patient who is awake, alert, kb and in no acute distress. Head/Face: Normocephalic, atraumatic. ENT: Moist Mucous membranes Cardiovascular: Regular rate Respiratory: Respirations even and unlabored. No increased work of breathing. Talking in full sentences Abdomen/GI: Soft, non-tender. No distention Skin: Warm, dry with normal turgor. Normal color. MS/ Extremity: Pulses equal, no cyanosis. Neurovascular intact. Full, normal range of motion. Neuro: Awake and alert, GCS 15, oriented to person, place, time, and situation. 13:54 Back: pain, that is mild, that is moderate, of the low back area, ROM is normal, normal spinal alignment noted, CVA tenderness, is absent, Vital Signs: 12:28 BP 170 / 97; Pulse 84; Resp 17 S; Temp 98.5(O); Pulse Ox 100% on R/A; Weight 86.18 kg kc6 (R); Height 5 ft. 4 in. (R); Pain 10/10; 13:23 BP 141 / 109; Pulse 82; Resp 16; Pulse Ox 97% ; bp 14:57 BP 135 / 74; ap3 15:02 BP 133 / 71; Pulse 78; Resp 16; Pulse Ox 97% ; bp 12:28 Body Mass Index 32.61 (86.18 kg, 162.56 cm) 6 12:28 Pain Scale: Adult kc6 MDM: 12:59 Medical Screening Exam initiated kb 13:54 Data reviewed: vital signs, nurses notes. kb 14:49 Differential diagnosis: Acute SC, arrhythmia, UTI, musculoskeletal pain, sciatica. kb Consideration of Admission/Observation Escalation of care including admission/observation considered. Admission considered for chest pain but patient has a negative troponin with a heart score of 1.. Counseling: I had a detailed discussion with the patient and/or guardian regarding the historical points, exam findings, and any diagnostic results supporting the discharge/admit diagnosis, lab results, radiology results, the need for outpatient follow up, a family practitioner, to return to the emergency department if symptoms worsen or persist or if there are any questions or concerns that arise at home. ED course: Discussed diagnostic results with patient. Educated that urinalysis was still pending. Patient states she does not believe she has a UTI, she has had them in the past and this does not feel like that. Denies any urinary symptoms. States she just wanted to make sure nothing major was going on and since her initial test are all normal she would like to be discharged because she needs to catch the bus. Patient educated on return precautions. Verbal understanding received.. 06/23 13:09 Order name: Basic Metabolic Panel; Complete Time: 14:05 kb 06/23 13:09 Order name: CBC with Diff; Complete Time: 13:52 kb 06/23 13:09 Order name: LFT's; Complete Time: 14:05 kb 06/23 13:09 Order name: Magnesium; Complete Time: 14:05 kb 06/23 13:09 Order name: NT PRO-BNP; Complete Time: 14:05 kb 06/23 13:09 Order name: Troponin HS; Complete Time: 14:05 kb 06/23 13:09 Order name: XRAY Chest (1 view); Complete Time: 14:25 kb 06/23 13:09 Order name: EKG; Complete Time: 13:10 kb 06/23 13:09 Order name: Cardiac monitoring; Complete Time: 13:13 kb 06/23 13:09 Order name: EKG - Nurse/Tech; Complete Time: 13:21 kb 06/23 13:09 Order name: IV Saline Lock; Complete Time: 13:22 kb 06/23 13:09 Order name: Labs collected and sent; Complete Time: 13:22 kb 06/23 13:09 Order name: O2 Per Protocol; Complete Time: 13:13 kb 06/23 13:09 Order name: O2 Sat Monitoring; Complete Time: 13:13 kb Administered Medications: 13:22 Drug: morphine IVP or IV 4 mg IVP once over 4 mins Route: IVP; Infused Over: 4 mins; bp Site: right forearm; 15:01 Follow up: Response: No adverse reaction bp 13:22 Drug: Ondansetron IVP 4 mg IVP once; over 2 minutes Route: IVP; Site: right forearm; bp 15:01 Follow up: Response: No adverse reaction bp 14:30 Drug: Potassium Chloride PO 40 mEq PO once Route: PO; bp 15:01 Follow up: Response: No adverse reaction bp Disposition Summary: 06/23/24 14:29 Discharge Ordered Notes: Location: Home kb Condition: Stable kb Diagnosis - Low back pain kb - Chest pain, unspecified kb Followup: kb - With: Emergency Department - When: As needed - Reason: Worsening of condition Followup: kb - With: Private Physician - When: 2 - 3 days - Reason: Recheck today's complaints, Continuance of care, Re-evaluation by your physician Discharge Instructions: - Discharge Summary Sheet kb - Musculoskeletal Pain kb - Nonspecific Chest Pain, Adult, [id number] kb Forms: - Medication Reconciliation Form kb - Antibiotic Education kb - Prescription Opioid Use kb - Patient Portal Instructions kb - Leadership Thank You Letter kb Prescriptions: - Diclofenac Sodium 75 mg Oral tablet, delayed release (enteric coated) - take 1 tablet ORAL route 2 times per day As needed; 30 tablet; Refills: 0, kb Product Selection Permitted - orphenadrine citrate 100 mg Oral Tablet Sustained Release - take 1 tablet ORAL route 2 times per day As needed; 20 tablet; Refills: 0, kb Product Selection Permitted Signatures: Dispatcher [employer] Eva Diehl FNP-C TERMINATION CLERK-Ckb Hugo Nolan, RN RN bp Clare Holman, RN RN kc6
--- NOTE | 2024-06-23 14:29 | ER ---
Nurse's Notes [facility] Name: Isis Ledezma Age: 59 yrs Sex: Female : 1965 Arrival Date: 06/23/2024 Time: 12:17 Bed 7 Private MD: Diagnosis: Low back pain;Chest pain, unspecified Presentation: 06/23 12:28 Chief complaint: Patient states: lower back pain x2 days with chest pain that started kc6 last night. Coronavirus screen: At this time, the client does not indicate any symptoms associated with coronavirus-19. Ebola Screen: No symptoms or risks identified at this time. Initial Sepsis Screen: Does the patient meet any 2 criteria? No. Patient's initial sepsis screen is negative. Does the patient have a suspected source of infection? No. Patient's initial sepsis screen is negative. Risk Assessment: Do you want to hurt yourself or someone else? Patient reports no desire to harm self or others. Onset of symptoms was June 23, 2024. 12:28 Method Of Arrival: Ambulatory kc6 12:28 Acuity: TAMICA 3 kc6 Historical: - Allergies: 12:29 No Known Allergies; kc6 - PMHx: 12:29 Anemia; kc6 - PSHx: 12:29 Appendectomy; section; kc6 - Immunization history:: Adult Immunizations up to date. - Infectious Disease History:: Denies. - Social history:: Smoking status: Patient reports the use of cigarette tobacco products, smokes one pack cigarettes per day. Screenin:01 [facility] ED Fall Risk Assessment (Adult) History of falling in the last 3 months, ap3 including since admission No falls in past 3 months (0 pts) Confusion or Disorientation No (0 pts) Intoxicated or Sedated No (0 pts) Impaired Gait No (0 pts) Mobility Assist Device Used No (0 pt) Altered Elimination No (0 pt) Score/Fall Risk Level 0 - 2 = Low Risk Oriented to surroundings, Maintained a safe environment, Educated pt \T\ family on fall prevention, incl call for assistance when getting out of bed, Assessed \T\ reinforced patient's understanding of fall precautions, Hourly rounding (assess needs \T\ fall precautionary measures) done, Used ambulatory aids as needed (educated on \T\ assisted with), Used gait belt as appropriate. Abuse screen: Denies threats or abuse. Nutritional screening: No deficits noted. Tuberculosis screening: No symptoms or risk factors identified. Assessment: 13:00 General: Appears in no apparent distress. Behavior is calm, cooperative, appropriate ap3 for age. Pain: Complains of pain in low back area Pain does not radiate. Pain currently is 10 out of 10 on a pain scale. Pain began 2-3 days ago. Neuro: Level of Consciousness is awake, alert, obeys commands, Oriented to person, place, time, situation, Appropriate for age Speech is normal. Cardiovascular: Patient's skin is warm and dry. Respiratory: Airway is patent Respiratory effort is even, unlabored, Respiratory pattern is regular, symmetrical. 13:24 Reassessment: Patient appears in no apparent distress at this time. Patient is alert, bp oriented x 3, equal unlabored respirations, skin warm/dry/pink. Vital Signs: 12:28 BP 170 / 97; Pulse 84; Resp 17 S; Temp 98.5(O); Pulse Ox 100% on R/A; Weight 86.18 kg kc6 (R); Height 5 ft. 4 in. (R); Pain 10/10; 13:23 BP 141 / 109; Pulse 82; Resp 16; Pulse Ox 97% ; bp 14:57 BP 135 / 74; ap3 15:02 BP 133 / 71; Pulse 78; Resp 16; Pulse Ox 97% ; bp 12:28 Body Mass Index 32.61 (86.18 kg, 162.56 cm) [facility] 12:28 Pain Scale: Adult [facility] ED Course: 12:18 Patient arrived in ED. im 12:29 Triage completed. kc6 12:29 Arm band placed on. kc6 12:42 Hugo Nolan, GEE is Primary Nurse. bp 12:57 Eva Palomo FNP-C is PHCP. kb 12:58 Mateo Back MD is Attending Physician. kb 13:01 Patient has correct armband on for positive identification. Bed in low position. Call ap3 light in reach. Side rails up X 1. Provided Education on: call light education. Pulse ox on. NIBP on. Door closed. Noise minimized. 13:01 Patient maintains SpO2 saturation greater than 95% on room air. ap3 13:23 Initial lab(s) drawn, by me, sent to lab. Inserted saline lock: 20 gauge in right bp forearm, using aseptic technique. Blood collected. Flushed with 10 mL NS. 14:03 XRAY Chest (1 view) In Process Unspecified. EDMS 15:01 No provider procedures requiring assistance completed. IV discontinued, intact, bp bleeding controlled, No redness/swelling at site. Pressure dressing applied. Administered Medications: 13:22 Drug: morphine IVP or IV 4 mg IVP once over 4 mins Route: IVP; Infused Over: 4 mins; bp Site: right forearm; 15:01 Follow up: Response: No adverse reaction bp 13:22 Drug: Ondansetron IVP 4 mg IVP once; over 2 minutes Route: IVP; Site: right forearm; bp 15:01 Follow up: Response: No adverse reaction bp 14:30 Drug: Potassium Chloride PO 40 mEq PO once Route: PO; bp 15:01 Follow up: Response: No adverse reaction bp Outcome: 14:29 Discharge ordered by . kb 15:01 Discharged to home ambulatory, bp 15:01 Condition: stable 15:01 Discharge instructions given to patient, Instructed on discharge instructions, follow up and referral plans. medication usage, Demonstrated understanding of instructions, follow-up care, medications, Prescriptions given X 2, 15:03 Patient left the ED. bp Signatures: Dispatcher [employer] EDMS Eva Palomo, CONSULTANT DIETITIAN-C CONSULTANT DIETITIAN-Hugo Mensah, RN RN Shivani Canales RN RN ap3 Clare Holman RN RN kc6 Yvrose Chávez
[2024-06-23] MEDS ORDERED: POTASSIUM CL SA 10 MEQ TAB PO ONE (14:56)
[2024-06-23 18:14] VITALS: TEMP 98.5
[2024-06-23 18:20] VITALS: O2SAT 97
[2024-06-23 18:31] VITALS: BP 133/71
== END 2024-06-23 15:03 | disposition home or self-care (01) ==
LOC: ER 12:17
DX: M54.50 Low back pain, unspecified (principal); R07.9 Chest pain, unspecified
CPT/HCPCS: 36415; 71045; 80048; 80076; 83735; 83880; 84484; 85025; 96374; 96375; 99284; J2405

== ENCOUNTER 2024-10-19 13:49 | Emergency (ER) | payer SELFPAY ==
[2024-10-19] MEDS ORDERED: GABAPENTIN 300 MG CAP ONE (14:03)
[2024-10-19] MEDS ORDERED: KETOROLAC 30 MG/ML INJ ONE (14:03)
--- NOTE | 2024-10-19 14:45 | RAD REPORT ---
EXAMINATION: Wrist Right 3 View VIEWS: Three views CLINICAL INDICATION: Female, 59 years old. PAIN RIGHT COMPARISON: No prior exam. IMPRESSION: No acute fracture. No malalignment or dislocation. Mild radiocarpal joint space narrowing.
--- NOTE | 2024-10-19 14:45 | RAD REPORT ---
EXAMINATION: Shoulder Right 2+ Views VIEWS: Two views CLINICAL INDICATION: Female, 59 years old. PAIN RIGHT COMPARISON: No prior exam. IMPRESSION: No acute fracture of the right shoulder. No dislocation. Mild right AC joint and glenohumeral joint degenerative changes.
--- NOTE | 2024-10-19 14:54 | EDPHYS ---
Physician Documentation [facility] Name: Isis Ledezma Age: 59 yrs Sex: Female : 1965 Arrival Date: 10/19/2024 Time: 13:49 Bed 10 Private MD: ED Physician Darrin Barillas HPI: 10/19 14:04 This 59 yrs old Black Female presents to ER via Ambulatory with complaints of Hand sb4 Injury, Shoulder Injury. 14:04 Patient states that she fell 2 weeks ago on the right side of her body. She is sb4 complaining of pain in her right wrist and right shoulder. States that the pain in her wrist comes on when she tries to hold something heavy and her shoulder hurts when she tries to lift up her arm. Has not been taking any medication for the pain. Denies any prior injuries. Historical: - Allergies: 13:57 No Known Allergies; ll1 - PMHx: 13:57 Anemia; ll1 - PSHx: 13:57 Appendectomy; section; ll1 - Immunization history:: Adult Immunizations up to date. - Infectious Disease History:: Denies. - Social history:: Smoking status: Patient denies any tobacco usage or history of. ROS: 14:04 Constitutional: Negative for fever, chills, and weight loss, sb4 14:04 MS/extremity: Positive for injury or acute deformity, pain, of the Right shoulder and right wrist, 14:04 All other systems are negative, Exam: 14:05 Constitutional: This is a well developed, well nourished patient who is awake, alert, sb4 and in no acute distress. Head/Face: Normocephalic, atraumatic. Eyes: Extra-ocular motions intact. Periorbital areas with no swelling, redness, or edema. ENT: Mucous membranes moist. Respiratory: No increased work of breathing, no retractions or nasal flaring. Skin: Warm, dry with normal turgor. Normal color with no rashes, no lesions, and no evidence of cellulitis. 14:05 Musculoskeletal/extremity: Radial pulses intact. Full ROM in fingers. Pain with ROM of right wrist and right shoulder. No deformity noted. Sensation fully intact. No crepitus, erythema, warmth, or ecchymosis noted. Vital Signs: 13:59 BP 171 / 80; Pulse 89; Resp 17; Pulse Ox 100% ; Height 5 ft. 4 in. ; Pain 10/10; ll1 15:05 BP 158 / 78; Pulse 87; Resp 18; Temp 97.9; Pulse Ox 98% on R/A; ph 13:59 Pain Scale: Adult ll1 MDM: 14:01 Medical Screening Exam initiated sb4 14:54 Data reviewed: vital signs, nurses notes, radiologic studies, and as a result, I will sb4 discharge patient. Counseling: I had a detailed discussion with the patient and/or guardian regarding the historical points, exam findings, and any diagnostic results supporting the discharge/admit diagnosis, radiology results, the need for outpatient follow up, for definitive care, to return to the emergency department if symptoms worsen or persist or if there are any questions or concerns that arise at home. 10/19 14:01 Order name: Shoulder Right (2 View) XRAY; Complete Time: 14:46 sb4 10/19 14:01 Order name: Wrist Right 3 View XRAY; Complete Time: 14:45 sb4 10/19 14:47 Order name: Sling; Complete Time: 14:55 sb4 Administered Medications: 14:11 Drug: Gabapentin PO 300 mg PO once Route: PO; ph 14:55 Follow up: Response: No adverse reaction ph 14:11 Drug: Ketorolac IM 30 mg IM once Route: IM; Site: right deltoid; ph 14:55 Follow up: Response: No adverse reaction ph Disposition Summary: 10/19/24 14:53 Discharge Ordered Notes: Location: Home sb4 Problem: new sb4 Symptoms: have improved sb4 Condition: Stable sb4 Diagnosis - Other sprain of right shoulder joint sb4 - Other specified sprain of right wrist sb4 Followup: sb4 - With: Soham Rehman MD - When: As needed - Reason: Recheck today's complaints, Re-evaluation by your physician Discharge Instructions: - Discharge Summary Sheet sb4 - How to Use a Shoulder Immobilizer sb4 - Shoulder Sprain sb4 - Wrist Sprain, Adult sb4 Forms: - Patient Portal Instructions sb4 - Leadership Thank You Letter sb4 Prescriptions: - gabapentin 100 mg Oral capsule - take 2 capsule ORAL route every 8 hours; 20 capsule; Refills: 0, Product sb4 Selection Permitted - Diclofenac Sodium 75 mg Oral Tablet Sustained Release - take 1 tablet ORAL route 2 times per day; 30 tablet; Refills: 0, Product sb4 Selection Permitted Addendum: 10/20/2024 15:32 Co-signature as Attending Physician, Darrin Barillas MD I agree with the assessment and c nicholson plan of care. Signatures: Dispatcher [employer] Darrin Dent MD MD cha Hall, Patricia, RN GEE Kathy Benitez RN RN [facility] Alyx Allen, PAJulietC PAJulietC sb4
--- NOTE | 2024-10-19 14:54 | ER ---
Nurse's Notes [facility] Name: Isis Ledezma Age: 59 yrs Sex: Female : 1965 Arrival Date: 10/19/2024 Time: 13:49 Bed 10 Private MD: Diagnosis: Other sprain of right shoulder joint;Other specified sprain of right wrist Presentation: 10/19 13:59 Chief complaint: Patient states: R shoulder pain tingling since fall 2 weeks ago. R ll1 wrist pain also. Coronavirus screen: Client denies travel out of the [place] in the last 14 days. At this time, the client does not indicate any symptoms associated with coronavirus-19. Ebola Screen: Patient denies travel to an Ebola-affected area in the 21 days before illness onset. Initial Sepsis Screen: Does the patient meet any 2 criteria? No. Patient's initial sepsis screen is negative. Does the patient have a suspected source of infection? No. Patient's initial sepsis screen is negative. Risk Assessment: Do you want to hurt yourself or someone else? Patient reports no desire to harm self or others. Onset of symptoms was October 04, 2024. 13:59 Method Of Arrival: Ambulatory ll1 13:59 Acuity: TAMICA 3 ll1 Triage Assessment: 14:00 General: Appears uncomfortable, Behavior is calm, appropriate for age. Pain: Complains ll1 of pain in right arm Quality of pain is described as aching. Musculoskeletal: Reports pain in R shoulder/ R wrist. Historical: - Allergies: 13:57 No Known Allergies; ll1 - PMHx: 13:57 Anemia; ll1 - PSHx: 13:57 Appendectomy; section; ll1 - Immunization history:: Adult Immunizations up to date. - Infectious Disease History:: Denies. - Social history:: Smoking status: Patient denies any tobacco usage or history of. Screenin:17 [facility] ED Fall Risk Assessment (Adult) History of falling in the last 3 months, ph including since admission No falls in past 3 months (0 pts) Confusion or Disorientation Yes (5 pts) Intoxicated or Sedated No (0 pts) Impaired Gait No (0 pts) Mobility Assist Device Used No (0 pt) Altered Elimination No (0 pt) Score/Fall Risk Level 0 - 2 = Low Risk Oriented to surroundings, Maintained a safe environment, Hourly rounding (assess needs \T\ fall precautionary measures) done. Abuse screen: Denies threats or abuse. Has been threatened or abused. Nutritional screening: No deficits noted. Tuberculosis screening: No symptoms or risk factors identified. Assessment: 14:16 General: Appears in no apparent distress. Behavior is calm, cooperative. Pain: ph Complains of pain in right arm. Neuro: Level of Consciousness is awake, alert, obeys commands, Oriented to person, place, time, situation. Cardiovascular: Capillary refill < 3 seconds in bilateral fingers Patient's skin is warm and dry. Respiratory: Airway is patent Respiratory effort is even, unlabored. Derm: Skin is pink, warm \T\ dry. Vital Signs: 13:59 BP 171 / 80; Pulse 89; Resp 17; Pulse Ox 100% ; Height 5 ft. 4 in. ; Pain 10/10; ll1 15:05 BP 158 / 78; Pulse 87; Resp 18; Temp 97.9; Pulse Ox 98% on R/A; ph 13:59 Pain Scale: Adult ll1 ED Course: 13:52 Patient arrived in ED. mr 13:57 Arm band placed on. ll1 13:58 Alyx Allen PA-C is PHCP. sb4 13:58 Darrin Barillas MD is Attending Physician. sb4 14:00 Triage completed. ll1 14:02 Blanca Wu, RN is Primary Nurse. ph 14:17 Patient has correct armband on for positive identification. Bed in low position. Call ph light in reach. Side rails up X 1. Pulse ox on. NIBP on. Door closed. Noise minimized. Warm blanket given. Pillow given. 14:17 No provider procedures requiring assistance completed. Patient did not have IV access ph during this emergency room visit. 14:38 Shoulder Right (2 View) XRAY In Process Unspecified. EDMS 14:39 Wrist Right 3 View XRAY In Process Unspecified. EDMS 14:52 Soham Rehman MD is Referral Physician. sb4 Administered Medications: 14:11 Drug: Gabapentin PO 300 mg PO once Route: PO; ph 14:55 Follow up: Response: No adverse reaction ph 14:11 Drug: Ketorolac IM 30 mg IM once Route: IM; Site: right deltoid; ph 14:55 Follow up: Response: No adverse reaction ph Medication: 14:17 VIS not applicable for this client. ph Outcome: 14:53 Discharge ordered by . sb4 15:05 Discharged to home ambulatory, ph 15:05 Condition: good 15:05 Discharge instructions given to patient, Instructed on discharge instructions, follow up and referral plans. medication usage, Demonstrated understanding of instructions, follow-up care, medications, Prescriptions given X 2, 15:05 Patient left the ED. ph Signatures: Dispatcher [employer] EDRI Altagracia Skelton, Lyndon Haney mr Blanca Wu, RN RN ph Kathy Benitez RN RN ll1 Alyx Allen, PA-C PA-C [email or web address] Corrections: (The following items were deleted from the chart) 14:00 13:59 Chief complaint: Patient states: R shoulder pain tingling since fall 2 weeks ago. ll1 R wrist pain also. ll1 14:01 13:59 Pulse 89bpm; Resp 17bpm; Pulse Ox 100%; ll1 ll1
[2024-10-19 15:15] VITALS: BP 158/78; TEMP 97.9; O2SAT 98
== END 2024-10-19 15:05 | disposition home or self-care (01) ==
LOC: ER 13:49
DX: S43.491A Other sprain of right shoulder joint, initial encounter (principal); S63.591A Other specified sprain of right wrist, initial encounter; W18.30XA Fall on same level, unspecified, initial encounter
CPT/HCPCS: 96372; 99284

== ENCOUNTER 2025-03-04 10:19 | Emergency (ER) | payer SELFPAY ==
[2025-03-04] MEDS ORDERED: MORPHINE 4 MG/ML SYR ONE (10:42)
[2025-03-04] MEDS ORDERED: ONDANSETRON 4 MG/2 ML VIAL ONE (10:42)
[2025-03-04] MEDS ORDERED: AMPICILLIN/SULBACTAM 3GM/VIAL ONE (10:42)
[2025-03-04] MEDS ORDERED: NA CHLORIDE 0.9% 1,000 ML ONE ×2 (10:42→11:45)
[2025-03-04] MEDS ORDERED: NA CHLORIDE 0.9% 100 ML ONE (10:43)
[2025-03-04 11:23] LABS: Absolute Lymphocytes (CBC) 1.1 K/uL (0.7-4.9); Hematocrit 40.5 % (36.0-45.0); Hemoglobin 13.4 g/dL (12.0-15.0); MCH 26.7 pg (27.0-35.0); MCHC 33.2 g/dL (32.0-36.0); MCV 80.6 fL (80-100); MPV 10.3 fL (7.6-11.3); Nucleated RBC Absolute Count 0.0 (0-0); Nucleated Red Blood Cells % 0.0 % (0-0); RBC Red Blood Cell Count 5.03 M/uL (3.86-4.86); White Blood Count 8.80 thou/uL (4.3-10.9)
[2025-03-04 11:32] LABS: PT Prothrombin Time 13.1 SECONDS (10-13.0); PTT, Activated Partial Thromb 28.8 SECONDS (27.2-37.4); Protime INR 1.16
[2025-03-04 11:43] LABS: ALT/SGPT 18 U/L (13-56); Albumin 3.0 g/dL (3.4-5.0); Albumin/Globulin Ratio 0.7 (1.1-1.8); Alkaline Phosphatase 88 U/L (45-117); Anion Gap 10.0 mEq/L (5.0-15.0); BUN Blood Urea Nitrogen 9 mg/dL (7-18); Globulin 4.2 g/dL (2.3-3.5); Glucose Level 166 mg/dL (74-106); NT PRO-BNP 188 pg/mL (<125); Potassium 3.0 mEq/L (3.5-5.1)
[2025-03-04 11:44] LABS: AST/SGOT < 10 U/L (15-37)
--- NOTE | 2025-03-04 12:52 | RAD REPORT ---
EXAM: Soft Tissue Neck W/Contr INDICATION: Neck pain and swelling TECHNIQUE: Helical CT examination of the neck [id number] cc Isovue-300 IV contrast. Sagittal and coronal reformations were generated. This exam was performed according to our departmental dose-optimization program, which includes automated exposure control, adjustment of the mA and/or kV according to patient size and/or use of iterative reconstruction technique. COMPARISON: None. FINDINGS: The pharynx, larynx and subglottic trachea are unremarkable The right parotid gland is enlarged, inhomogeneous and contain small low-density areas. Edema is pres ent within the adjacent soft tissues. Left parotid, submandibular glands unremarkable. Small benign thyroid nodules. Prominence of the adenoids. No fluid within the visualized sinuses/mastoids. IMPRESSION: Enlarged heterogeneous enhancing right parotid gland most likely acute inflammation/infection. A larg e drainable abscess is not present.[id number]
--- NOTE | 2025-03-04 14:15 | ER ---
Nurse's Notes [facility] Name: Isis Ledezma Age: 59 yrs Sex: Female : 1965 Arrival Date: 03/04/2025 Time: 10:19 Bed 8 Private MD: Diagnosis: Acute sialoadenitis Presentation: 03/04 10:33 Chief complaint: Patient states: "I started with a knot 2 days ago on my right jaw and aa5 now it's getting bigger". Swelling noted to right jaw, pt c/o sore throat and right ear pain now. Coronavirus screen: At this time, the client does not indicate any symptoms associated with coronavirus-19. Ebola Screen: Patient denies travel to an Ebola-affected area in the 21 days before illness onset. Initial Sepsis Screen: Does the patient meet any 2 criteria? No. Patient's initial sepsis screen is negative. Does the patient have a suspected source of infection? No. Patient's initial sepsis screen is negative. Risk Assessment: Do you want to hurt yourself or someone else? Patient reports no desire to harm self or others. Onset of symptoms was February 2025. 10:33 Acuity: TAMICA 3 aa5 10:33 Method Of Arrival: Ambulatory aa5 Historical: - Allergies: 10:33 No Known Allergies; aa5 - Home Meds: 10:33 None [Active]; aa5 - PMHx: 10:33 Anemia; aa5 - PSHx: 10:33 Appendectomy; section; aa5 - Immunization history:: Adult Immunizations unknown. - Infectious Disease History:: Denies. - Social history:: Smoking status: Patient reports the use of cigarette tobacco products. Screenin:00 [facility] ED Fall Risk Assessment (Adult) History of falling in the last 3 months, ar8 including since admission No falls in past 3 months (0 pts) Confusion or Disorientation No (0 pts) Intoxicated or Sedated No (0 pts) Impaired Gait No (0 pts) Mobility Assist Device Used No (0 pt) Altered Elimination No (0 pt) Score/Fall Risk Level 0 - 2 = Low Risk. Abuse screen: Denies threats or abuse. Nutritional screening: No deficits noted. Tuberculosis screening: No symptoms or risk factors identified. Assessment: 11:00 Pain: Complains of pain in right submandibular area Pain currently is 10 out of 10 on a ar8 pain scale. 11:00 Neuro: No deficits noted. Level of Consciousness is awake, alert, obeys commands, ar8 Oriented to person, place, time, situation. Cardiovascular: No deficits noted. Rhythm is sinus rhythm. Respiratory: No deficits noted. Airway is patent Respiratory effort is even, unlabored, Respiratory pattern is regular, symmetrical. GI: No deficits noted. EENT: swelling noted to right side of jaw, tenderness with palpation. Cervical nodes enlarged on right Reports swelling to right jaw. Vital Signs: 10:33 BP 162 / 71; Pulse 88; Resp 16 S; Temp 99.2(O); Pulse Ox 97% on R/A; Weight 86.18 kg aa5 (R); Height 5 ft. 4 in. (R); 10:59 BP 162 / 71; Pulse 87; Resp 18; Pulse Ox 96% on R/A; ph 11:52 BP 161 / 84; Pulse 80; Resp 17; Pulse Ox 96% on R/A; Pain 5/10; ar8 11:55 Pain 5/10; ar8 12:06 Temp 98.8(O); ar8 13:38 BP 158 / 88; Pulse 74; Resp 17; Pulse Ox 96% on R/A; ar8 14:13 BP 164 / 86; Pulse 76; Resp 18; Pulse Ox 100% on R/A; ph 10:33 Body Mass Index 32.61 (86.18 kg, 162.56 cm) aa5 11:52 Pain Scale: Adult ar8 11:55 Pain Scale: Adult ar8 ED Course: 10:21 Patient arrived in ED. mr 10:23 Deo Spivey FNP-C is PHCP. dr5 10:23 Humza Palumbo DO is Attending Physician. dr5 10:32 Arm band placed on Patient placed in an exam room, on a stretcher. aa5 10:35 Triage completed. aa5 10:41 Hugo Nolan, RN is Primary Nurse. bp 10:59 Inserted saline lock: 20 gauge in left forearm, using aseptic technique. Blood sa1 collected. Flushed with 10 mL NS. 11:00 Bed in low position. Call light in reach. Side rails up X2. Provided Education on: plan ar8 of care. Client placed on continuous cardiac and pulse oximetry monitoring. NIBP monitoring applied. 11:00 First set of blood cultures drawn by me. sa1 11:15 No provider procedures requiring assistance completed. Inserted saline lock: 22 gauge ar8 in right forearm, using aseptic technique. Blood collected. Flushed with 10 mL NS. 11:15 Second set of blood cultures drawn Strep swab sent to lab. ar8 11:20 EKG done, by ED staff, reviewed by Deo CRUZ. ar8 12:06 Assisted to bathroom. ar8 12:24 CT Soft Tissue Neck W/contr In Process Unspecified. EDMS 13:36 Lactate w/ 2H reflex if indic. Sent. ar8 14:32 IV discontinued, intact, bleeding controlled, No redness/swelling at site. Pressure ph dressing applied. Administered Medications: 11:15 Drug: NS 0.9% IV 1000 ml IV at 1000 ml once; to be given as a bolus over 60 minutes ar8 Route: IV; Rate: 1000 ml; Site: right forearm; 14:31 Follow up: Response: No adverse reaction; IV Status: Completed infusion; IV Intake: ph 1000ml 11:16 Drug: Ondansetron IVP 4 mg IVP once; over 2 minutes Route: IVP; Site: right forearm; ar8 11:55 Follow up: Response: No adverse reaction; Marked relief of symptoms ar8 11:18 Drug: morphine IVP or IV 4 mg IVP once over 4 mins Route: IVP; Infused Over: 4 mins; ar8 Site: right forearm; 11:55 Follow up: Pain 5/10 Adult; Response: No adverse reaction; Pain is decreased ar8 11:22 Drug: Ampicillin-Sulbactam Sodium IVPB 3 grams IVPB once over 30 mins; (mix in 100 mL ar8 NS) Route: IVPB; Infused Over: 30 mins; Site: right forearm; 11:55 Follow up: Response: No adverse reaction; IV Status: Completed infusion; IV Intake: ar8 100ml 13:37 Drug: NS 0.9% IV 2000 ml IV at 1000 ml once; to be given as a bolus over 60 minutes ar8 Route: IV; Rate: 1000 ml; Site: right forearm; 14:31 Follow up: Response: No adverse reaction; IV Status: Completed infusion; IV Intake: ph 1000ml ; total of 2000 mL given per sepsis bolus protocol Medication: 11:00 VIS not applicable for this client. ar8 Intake: 11:55 IV: 100ml; Total: 100ml. ar8 14:31 IV: 1000ml; Total: 1100ml. ph 14:31 IV: 1000ml; Total: 2100ml. ph Outcome: 14:14 Discharge ordered by . dr5 14:32 Discharged to home ambulatory, with family, ph 14:32 Condition: good 14:32 Discharge instructions given to patient, Instructed on discharge instructions, follow up and referral plans. medication usage, Demonstrated understanding of instructions, follow-up care, medications, Prescriptions given X 2, 14:33 Patient left the ED. ph Signatures: Dispatcher [employer] EDMS SkeltonAltagracia, Reg Reg mr Kassie Benjamin, RN RN aa5 Blanca Wu RN RN Hugo Nolan, RN RN Sultan Gretchen sa1 Deo Spivey, EMBOSSING TOOL SETTER-C EMBOSSING TOOL SETTER-Cdr5 Miquel Hayes RN RN ar8 Corrections: (The following items were deleted from the chart) 10:33 10:33 PSHx: Appendectomy; aa5 aaHumberto 14:30 14:30 Response: No adverse reaction; IV Status: Completed infusion; IV Intake: 2000ml phph 14:32 14:30 Response: No adverse reaction; IV Status: Completed infusion; IV Intake: 1000ml phph
--- NOTE | 2025-03-04 14:15 | EDPHYS ---
Physician Documentation [facility] Name: Isis Ledezma Age: 59 yrs Sex: Female : 1965 Arrival Date: 03/04/2025 Time: 10:19 Bed 8 Private MD: ED Physician Humza Palumbo HPI: 03/04 10:56 This 59 yrs old Black Female presents to ER via Ambulatory with complaints of Throat dr5 swelling. 10:56 Onset: The symptoms/episode began/occurred 2 day(s) ago. Patient is a 59-year-old dr5 female with history of anemia coming in with pain and swelling to the right upper mandible in front of ear for the past 2 days. Patient denies fever. Patient reports that the pain has getting worse and the swelling is getting larger and having difficulty chewing on the right side. Patient denies any dental pain or problems.. Historical: - Allergies: 10:33 No Known Allergies; aa5 - Home Meds: 10:33 None [Active]; aa5 - PMHx: 10:33 Anemia; aa5 - PSHx: 10:33 Appendectomy; section; aa5 - Immunization history:: Adult Immunizations unknown. - Infectious Disease History:: Denies. - Social history:: Smoking status: Patient reports the use of cigarette tobacco products. ROS: 10:56 Constitutional: as per hpi dr5 Exam: 10:56 Constitutional: This is a well developed, well nourished patient who is awake, alert, dr5 and in no acute distress. Head/Face: Normocephalic, atraumatic. ENT: Nares patent. No nasal discharge, no septal abnormalities noted. Tympanic membranes are normal and external auditory canals are clear. Oropharynx with no redness, swelling, or masses, exudates, or evidence of obstruction, uvula midline. Mucous membranes moist. Neck: Trachea midline, no thyromegaly or masses palpated, and no cervical lymphadenopathy. Supple, full range of motion without nuchal rigidity, or vertebral point tenderness. No Meningismus. Chest/axilla: Normal chest wall appearance and motion. Nontender with no deformity. No lesions are appreciated. Cardiovascular: Regular rate and rhythm with a normal S1 and S2. Normal PMI, no JVD. No pulse deficits. Respiratory: Lungs have equal breath sounds bilaterally, clear to auscultation. No rales, rhonchi or wheezes noted. No increased work of breathing, no retractions or nasal flaring. Back: No spinal tenderness. No costovertebral tenderness. Full range of motion. Skin: Warm, dry with normal turgor. Normal color with no rashes. Patient has swelling to right upper mandible anterior to right ear with tenderness to palpation and fluctuance noted. Concerns for abscess MS/ Extremity: Pulses equal, no cyanosis. Neurovascular intact. Full, normal range of motion. Neuro: Awake and alert, GCS 15, oriented to person, place, time, and situation. Cranial nerves II-XII grossly intact. Motor strength 5/5 in all extremities. Sensory grossly intact. Cerebellar exam normal. Normal gait. Vital Signs: 10:33 BP 162 / 71; Pulse 88; Resp 16 S; Temp 99.2(O); Pulse Ox 97% on R/A; Weight 86.18 kg aa5 (R); Height 5 ft. 4 in. (R); 10:59 BP 162 / 71; Pulse 87; Resp 18; Pulse Ox 96% on R/A; ph 11:52 BP 161 / 84; Pulse 80; Resp 17; Pulse Ox 96% on R/A; Pain 5/10; ar8 11:55 Pain 5/10; ar8 12:06 Temp 98.8(O); ar8 13:38 BP 158 / 88; Pulse 74; Resp 17; Pulse Ox 96% on R/A; ar8 14:13 BP 164 / 86; Pulse 76; Resp 18; Pulse Ox 100% on R/A; ph 10:33 Body Mass Index 32.61 (86.18 kg, 162.56 cm) aa5 11:52 Pain Scale: Adult ar8 11:55 Pain Scale: Adult ar8 MDM: 10:23 Medical Screening Exam initiated dr5 10:56 ED course: Concerns for facial abscess development. Will get blood work, blood dr5 cultures, lactate, and start patient on IV antibiotics while pending CT scan.. 16:42 Differential diagnosis: viral Infection, bacterial infection, Parotiditis, abscess, dr5 Mingo's angina. Data reviewed: vital signs, nurses notes, lab test result(s), CBC, white blood cell count, hemoglobin, hematocrit, platelets, electrolytes, sodium, potassium, chloride, serum bicarbonate, BUN, creatinine, serum glucose, Lactate, EKG, radiologic studies, CT scan. Data reviewed: I have discussed the patient's presentation/case with the attending Emergency Department Physician;. Consideration of Admission/Observation Escalation of care including admission/observation considered. Admission considered patient found to have a drainable abscess or electrolyte abnormality especially kidney injury. I considered the following discharge prescriptions or medication management in the emergency department I discussed and recommended Over The Counter medications, Medications were administered in the Emergency Department. See MAR. Historians other than the Patient: Daughter/Son: Daughter. Family Member: Oldest and youngest sister. Care significantly affected by the following chronic conditions: Anemia. Care significantly affected by the following Social Determinants of Health: Poor access to healthcare and/or lack of insurance, Poor access to transportation, Problems related to employment. Counseling: I had a detailed discussion with the patient and/or guardian regarding the historical points, exam findings, and any diagnostic results supporting the discharge/admit diagnosis, the presence of at least one elevated blood pressure reading (>120/80) during this emergency department visit, lab results, radiology results, the need for outpatient follow up, for definitive care, a dentist, a family practitioner, to return to the emergency department if symptoms worsen or persist or if there are any questions or concerns that arise at home. Medication response: Nitro x 3 relieved pain, Zofran relieved the patient's nausea. Response to treatment: the patient's symptoms have markedly improved after treatment. Special discussion: I discussed with the patient/guardian in detail that at this point there is no indication for admission to the hospital. It is understood, however, that if the symptoms persist or worsen the patient needs to return immediately for re-evaluation. Based on the history and exam findings, there is no indication for further emergent testing or inpatient evaluation. I discussed with the patient/guardian the need to see a dentist for further evaluation of the symptoms. I discussed with the patient/guardian the need to see the primary care provider for further evaluation of the symptoms. ED course: Will have patient follow-up primary care doctor. IV Unasyn given in ER. No drainable abscess noted on CT scan. Discussed case with Dr. Palumbo in joint decision making to have patient follow with primary care doctor. All questions answered. Patient reports she is feeling much better. Lactate returned to normal after IV fluids and IV antibiotics. Strict ER precautions given to patient.. 03/04 10:23 Order name: Group A Streptococcus Rapid; Complete Time: 11:40 dr5 03/04 10:32 Order name: BNP; Complete Time: 11:46 dr5 03/04 10:32 Order name: Blood Culture Adult (2) dr5 03/04 10:32 Order name: CBC with Diff; Complete Time: 11:40 dr5 03/04 10:32 Order name: CMP; Complete Time: 11:46 dr5 03/04 10:32 Order name: Lactate w/ 2H reflex if indic.; Complete Time: 11:46 dr5 03/04 10:32 Order name: Protime (+inr); Complete Time: 11:40 dr5 03/04 10:32 Order name: Ptt, Activated; Complete Time: 11:40 dr5 03/04 11:41 Order name: Throat Culture EDNC 03/04 11:47 Order name: Ghost Lactate-NO COLLECT Timer; Complete Time: 14:07 EDMS 03/04 13:20 Order name: Lactate w/ 2H reflex if indic.; Complete Time: 14:09 dr5 03/04 10:32 Order name: CT Soft Tissue Neck W/contr; Complete Time: 12:54 dr5 03/04 10:32 Order name: Accucheck; Complete Time: 11:56 dr5 03/04 10:32 Order name: Cardiac monitoring; Complete Time: 11:28 dr5 03/04 10:32 Order name: EKG - Nurse/Tech; Complete Time: 11:28 dr5 03/04 10:32 Order name: IV Saline Lock - Large Bore; Complete Time: 11:28 dr5 03/04 10:32 Order name: Labs collected and sent; Complete Time: 11:28 dr5 03/04 10:32 Order name: O2 Per Protocol; Complete Time: 10:38 dr5 03/04 10:32 Order name: O2 Sat Monitoring; Complete Time: 10:38 dr5 03/04 10:32 Order name: Vital Signs; Complete Time: 10:38 dr5 EC:20 Rate is 82 beats/min. Rhythm is regular. QRS Gillett is Normal. IN interval is normal at dr5 170 msec. QRS interval is normal at 102 msec. QT interval is normal at 436 msec. Clinical impression: Normal ECG and No evidence of ischemia. Administered Medications: 11:15 Drug: NS 0.9% IV 1000 ml IV at 1000 ml once; to be given as a bolus over 60 minutes ar8 Route: IV; Rate: 1000 ml; Site: right forearm; 14:31 Follow up: Response: No adverse reaction; IV Status: Completed infusion; IV Intake: ph 1000ml 11:16 Drug: Ondansetron IVP 4 mg IVP once; over 2 minutes Route: IVP; Site: right forearm; ar8 11:55 Follow up: Response: No adverse reaction; Marked relief of symptoms ar8 11:18 Drug: morphine IVP or IV 4 mg IVP once over 4 mins Route: IVP; Infused Over: 4 mins; ar8 Site: right forearm; 11:55 Follow up: Pain 5/10 Adult; Response: No adverse reaction; Pain is decreased ar8 11:22 Drug: Ampicillin-Sulbactam Sodium IVPB 3 grams IVPB once over 30 mins; (mix in 100 mL ar8 NS) Route: IVPB; Infused Over: 30 mins; Site: right forearm; 11:55 Follow up: Response: No adverse reaction; IV Status: Completed infusion; IV Intake: ar8 100ml 13:37 Drug: NS 0.9% IV 2000 ml IV at 1000 ml once; to be given as a bolus over 60 minutes ar8 Route: IV; Rate: 1000 ml; Site: right forearm; 14:31 Follow up: Response: No adverse reaction; IV Status: Completed infusion; IV Intake: ph 1000ml ; total of 2000 mL given per sepsis bolus protocol Disposition: 19:23 I was immediately available on-site in the Emergency Department for consultation in the ms3 care of the patient. Disposition Summary: 03/04/25 14:14 Discharge Ordered Notes: Location: Home dr5 Condition: Stable dr5 Diagnosis - Acute sialoadenitis dr5 Followup: dr5 - With: Emergency Department - When: As needed - Reason: Worsening of condition Followup: dr5 - With: Private Physician - When: 1 - 2 days - Reason: Recheck today's complaints, Continuance of care, Re-evaluation by your physician Discharge Instructions: - Discharge Summary Sheet dr5 - Parotitis dr5 Forms: - Medication Reconciliation Form dr5 - Antibiotic Education dr5 - Prescription Opioid Use dr5 - Patient Portal Instructions dr5 - Leadership Thank You Letter dr5 Prescriptions: - Augmentin 875-125 mg Oral Tablet - take 1 tablet ORAL route every 12 hours for 10 days; 20 tablet; Refills: 0, dr5 Product Selection Permitted - Tramadol 50 mg Oral Tablet - take 1 tablet ORAL route every 8 hours as needed; 12 tablet; Refills: 0, dr5 Product Selection Permitted Critical care time excluding procedures: 16:42 Critical care time: Bedside Care: 20 minutes, Consultation: 5 minutes, Family dr5 Intervention: 5 minutes. Total time: 30 minutes Signatures: Dispatcher [employer] EDMS Kassie Benjamin, RN RN aa5 Deepali, Humza, DO DO ms3 Deo Spivey, OVERNIGHT ASSOCIATE-C OVERNIGHT ASSOCIATE-Cdr5 Miquel Hayes RN RN ar8 Blanca Wu RN ph Corrections: (The following items were deleted from the chart) 10:33 10:33 PROBNP+C.LAB.BRZ ordered. EDMS EDMS 10:33 10:33 BLOOD CULTURE*+BA.LAB.BRZ ordered. EDMS EDMS 10:33 10:33 CBC+H.LAB.BRZ ordered. EDMS EDMS 10:33 10:33 COMPREHENSIVE METABOLIC PANEL+C.LAB.BRZ ordered. EDMS EDMS 10:33 10:33 LACTATE+C.LAB.BRZ ordered. EDMS EDMS 10:33 10:33 PROTIME (+INR)+COAG.LAB.BRZ ordered. EDMS EDMS 10:33 10:33 PTT, ACTIVATED+COAG.LAB.BRZ ordered. EDMS EDMS 10:33 10:33 Soft Tissue Neck W/Contr+CT.RAD.BRZ ordered. EDMS EDMS 10:33 10:33 PSHx: Appendectomy; aa5 aa5
[2025-03-04 16:43] VITALS: TEMP 98.8
[2025-03-04 16:46] VITALS: BP 164/86; O2SAT 100
== END 2025-03-04 14:33 | disposition home or self-care (01) ==
LOC: ER 10:19
DX: K11.20 Sialoadenitis, unspecified (principal)
CPT/HCPCS: 36415; 70491; 80053; 83605; 83880; 85025; 85610; 85730; 87040; 87070; 93005; 96361; 96365; 96375; 99284; J0295; J2405; J7030; Q9967